=== PATIENT | female | born 1930 | race Caucasian/White ===

== ENCOUNTER → 2016-03-26 | Outpatient (CLI) | payer MEDICARE, OTHER ==
[2016-03-26 11:33] LABS: ALANINE AMINOTRANSFERASE 37 U/L (9-52); ALBUMIN 3.9 g/dL (3.5-5.0); ALKALINE PHOSPHATASE 94 U/L (38-126); ASPARTATE AMINO TRANSFERASE 30 U/L (14-36); BILIRUBIN,TOTAL 0.5 mg/dL (0.2-1.3); CHOLESTEROL 318.04 mg/dL (0-200); Direct HDL 43 mg/dL (>40); TOTAL PROTEIN 7.1 g/dL (6.3-8.2); TRIGLYCERIDES 399 mg/dL (<150)
[2016-03-26 11:44] LABS: DIRECT LDL 202 mg/dL (<100)
[2016-03-26 11:50] LABS: VLDL CHOLESTEROL 79.8 mg/dL (10-31)
== END ==
LOC: OD 10:15
PROVIDERS: ATTEND Specialist
DX: E11.9 Type 2 diabetes mellitus without complications (principal); E78.4 Other hyperlipidemia; E66.8 Other obesity; I10 Essential (primary) hypertension; I25.10 Atherosclerotic heart disease of native coronary artery without angina pectoris; I47.1 Supraventricular tachycardia; I66.9 Occlusion and stenosis of unspecified cerebral artery; R01.1 Cardiac murmur, unspecified; R09.89 Other specified symptoms and signs involving the circulatory and respiratory systems; F31.9 Bipolar disorder, unspecified; Z79.899 Other long term (current) drug therapy; Z98.61 Coronary angioplasty status
CPT/HCPCS: 36415; 80061; 80076; 83036

== ENCOUNTER → 2016-04-15 | Outpatient (CLI) | payer MEDICARE, OTHER ==
[2016-04-15 13:24] LABS: HEMOGLOBIN 12.3 g/dL (12.0-15.5); HGB HCT DIFFERENCE -0.1; MEAN CORPUSCULAR HEMOGLOBIN 30.8 pg (27.0-33.4); MEAN CORPUSCULAR HGB CONC 33.2 g/dL (32.0-36.0); MEAN CORPUSCULAR VOLUME 93 fl (80-97); RED BLOOD COUNT 3.99 10^6/uL (3.72-5.28); RED CELL DISTRIBUTION WIDTH 14.1 % (11.5-14.0); WHITE BLOOD COUNT 9.1 10^3/uL (4.0-10.5)
[2016-04-15 13:52] LABS: ANION GAP 14 (5-19); BLOOD UREA NITROGEN 38 mg/dL (7-20); CARBON DIOXIDE 25 mmol/L (22-30); CHLORIDE 101 mmol/L (98-107); CREATININE RESULT 1.72 mg/dL (0.52-1.25); GLUCOSE 305 mg/dL (75-110); POTASSIUM 5.5 mmol/L (3.6-5.0); SODIUM 139.5 mmol/L (137-145)
== END ==
LOC: OD 11:47
PROVIDERS: ATTEND Internal Medicine Nephrology
DX: I12.9 Hypertensive chronic kidney disease with stage 1 through stage 4 chronic kidney disease, or unspecified chronic kidney disease (principal); N18.4 Chronic kidney disease, stage 4 (severe); E11.9 Type 2 diabetes mellitus without complications
CPT/HCPCS: 36415; 80048; 85027

== ENCOUNTER → 2016-04-17 | Outpatient (CLI) | payer MEDICARE, OTHER | LOC: OD 15:43 | PROVIDERS: ATTEND Internal Medicine Nephrology | DX: E87.5 Hyperkalemia (principal) | CPT/HCPCS: 36415; 84132 ==

== ENCOUNTER → 2016-05-28 | Outpatient (CLI) | payer MEDICARE, OTHER | LOC: OD 10:02 | PROVIDERS: ATTEND Internal Medicine Nephrology | DX: E87.5 Hyperkalemia (principal) | CPT/HCPCS: 36415; 84132 ==

== ENCOUNTER 2016-07-21 11:45 | Emergency (ER) | payer MEDICARE, OTHER ==
[2016-07-21] MEDS ORDERED: LIDOCAINE 1% INJ-PF (10 MG/ML) 30 ML SDV INJ ONE (13:02)
--- NOTE | 2016-07-21 15:07 | ER Document Report ---
ED General - General Chief Complaint: Fall Stated Complaint: FALL/NECK PAIN Mode of Arrival: Ambulatory Information source: Patient Notes: 85-year-old female presents after mechanical fall striking head. Patient denies any loss of bowel or bladder function denies any fevers or chills nausea vomiting or diarrhea. Patient denies any loss consciousness TRAVEL OUTSIDE OF THE [place] IN LAST 30 DAYS: No - HPI Onset: Just prior to arrival Onset/Duration: Sudden Quality of pain: Achy Severity: Mild Pain Level: 1 Associated symptoms: Headache Exacerbated by: Denies Relieved by: Denies Similar symptoms previously: Yes Recently seen / treated by doctor: Yes - Related Data Allergies/Adverse Reactions: celecoxib [From Celebrex] Allergy (Intermediate, Verified 10/31/14 17:30) gabapentin [From Neurontin] Allergy (Intermediate, Verified 10/31/14 17:30) lamotrigine [From Lamictal] Allergy (Intermediate, Verified 10/31/14 17:30) meloxicam [From Mobic] Allergy (Intermediate, Verified 10/31/14 17:30) thiothixene [From Navane] Allergy (Intermediate, Verified 10/31/14 17:30) amoxicillin trihydrate [From Augmentin] Allergy (Unknown, Verified 10/31/14 17: 30) citalopram hydrobromide [From Celexa] Allergy (Unknown, Verified 10/31/14 17:30) codeine [Codeine] Allergy (Unknown, Verified 10/31/14 17:30) divalproex sodium [From Depakote] Allergy (Unknown, Verified 10/31/14 17:30) hydrocodone bitartrate [From Lorcet 10/650] Allergy (Unknown, Verified 10/31/14 17:30) methocarbamol [From Robaxin] Allergy (Unknown, Verified 10/31/14 17:30) nabumetone [From Relafen] Allergy (Unknown, Verified 10/31/14 17:30) oxycodone [Oxycodone] Allergy (Unknown, Verified 10/31/14 17:30) Sulfa (Sulfonamide Antibiotics) Allergy (Unknown, Verified 10/31/14 17:30) terazosin [Terazosin] Allergy (Unknown, Verified 10/31/14 17:30) tramadol HCl [From Ultram] Allergy (Unknown, Verified 10/31/14 17:30) Past Medical History - Social History Smoking Status: Never Smoker Cigarette use (# per day): No Chew tobacco use (# tins/day): No Smoking Education Provided: No Frequency of alcohol use: None Drug Abuse: None Family History: Reviewed & Not Pertinent - Past Medical History Cardiac Medical History: Reports: Hx Coronary Artery Disease, Hx Heart Attack, Hx Hypercholesterolemia, Hx Hypertension Denies: Hx Heart Murmur Pulmonary Medical History: Reports: Hx Pneumonia Denies: Hx Respiratory Failure, Hx Sleep Apnea, Hx Tuberculosis Neurological Medical History: Reports: Hx Cerebrovascular Accident - Residual symptoms include left sided arm and leg numbness and weakness, Hx Seizures - "long time ago" Endocrine Medical History: Reports: Hx Diabetes Mellitus Type 2 Renal/ Medical History: Malignancy Medical History: GI Medical History: Denies: Hx Hiatal Hernia, Hx Ulcer Musculoskeltal Medical History: 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 Denies recent illness. EENT: Denies eye, ear, throat, or mouth pain or symptoms. Denies nasal or sinus congestion or discharge. Denies throat, tongue, or mouth swelling or difficulty swallowing. CARDIOVASCULAR: Denies chest pain. Denies palpitations or racing or irregular heart beat. Denies ankle edema. RESPIRATORY: Denies cough, cold, or chest congestion. Denies shortness of breath, difficulty breathing, or wheezing. GASTROINTESTINAL: Denies abdominal pain or distention. Denies nausea, vomiting , or diarrhea. Denies blood in vomitus, stools, or per rectum. Denies black, tarry stools. Denies constipation. GENITOURINARY: Denies difficulty urinating, painful urination, burning, frequency, blood in urine, or discharge. FEMALE GENITOURINARY: Denies vaginal bleeding, heavy or abnormal periods, irregular periods. Denies vaginal discharge or odor. MUSCULOSKELETAL: Denies back or neck pain or stiffness. Denies joint pain or swelling. SKIN: 3.5 cm laceration HEMATOLOGIC : Denies easy bruising or bleeding. LYMPHATIC: Denies swollen, enlarged glands. NEUROLOGICAL: Denies confusion or altered mental status. Denies passing out or loss of consciousness. Denies dizziness or lightheadedness. Denies headache. Denies weakness or paralysis or loss of use of either side. Denies problems with gait or speech. Denies sensory loss, numbness, or tingling. Denies seizures. PSYCHIATRIC: Denies anxiety or stress. Denies depression, suicidal ideation, or homicidal ideation. ALL OTHER SYSTEMS REVIEWED AND NEGATIVE. Dictation was performed using [employer] voice recognition software PHYSICAL EXAMINATION: GENERAL: Well-appearing, well-nourished and in no acute distress. HEAD: Atraumatic, normocephalic. EYES: Pupils equal round and reactive to light, extraocular movements intact, conjunctiva are normal. ENT: Nares patent, oropharynx clear without exudates. Moist mucous membranes. NECK: Normal range of motion, supple without lymphadenopathy LUNGS: Breath sounds clear to auscultation bilaterally and equal. No wheezes rales or rhonchi. HEART: Regular rate and rhythm without murmurs ABDOMEN: Soft, nontender, nondistended abdomen. No guarding, no rebound. No masses appreciated. Female : deferred Musculoskeletal: Normal range of motion, no pitting or edema. No cyanosis. NEUROLOGICAL: Cranial nerves grossly intact. Normal speech, normal gait. Normal sensory, motor exams PSYCH: Normal mood, normal affect. SKIN: 3.5 cm laceration above the right orbit Physical Exam - Vital signs Vitals: Temp Pulse Resp BP Pulse Ox 98.5 F 64 18 132/67 H 96 07/21/16 12:01 07/21/16 12:01 07/21/16 12:01 07/21/16 12:01 07/21/16 12:01 Course - Re-evaluation Re-evalutation: 07/21/16 15:07 85-year-old female presents after head injury, area was anesthetized cleansed and repaired with no difficulty. Patient will be discharged back with close return precautions as well as wound care. Instructed to remove the sutures in 3 -5 days or sooner if there is any other concerns After performing a Medical Screening Examination, I estimate there is LOW risk for INTRACRANIAL HEMORRHAGE, UNSTABLE SPINE FRACTURE, CENTRAL CORD SYNDROME, CAUDA EQUINA, THORACIC AORTIC DISSECTION, PNEUMOTHORAX, PERFORATED BOWEL, RUPTURED ABDOMINAL AORTIC ANEURYSM, ACUTE TENDON RUPTURE, COMPARTMENT SYNDROME, or OPEN FRACTURE, thus I consider the discharge disposition reasonable. Also, there is no evidence or peritonitis, sepsis, or toxicity. I have reevaluated this patient multiple times and no significant life threatening changes are noted. The patient and I have discussed the diagnosis and risks, and we agree with discharging home to follow-up with their primary doctor with the understanding that symptoms and presentations can change. We also discussed returning to the Emergency Department immediately if new or worsening symptoms occur. We have discussed the symptoms which are most concerning (e.g., bloody stool, fever, changing or worsening pain, vomiting) that necessitate immediate return. - Vital Signs Vital signs: Temp Pulse Resp BP Pulse Ox 98.5 F 64 18 132/67 H 96 07/21/16 12:01 07/21/16 12:01 07/21/16 12:01 07/21/16 12:01 07/21/16 12:01 Procedures - Laceration/Wound Repair Right Upper Face Time completed: 15:00 Wound length (cm): 3.5 Wound's Depth, Shape: Superficial, Irregular, Flap Laceration pre-procedure: Sterile PPE donned, Sterile drapes applied, Shur- Clens applied Anesthetic type: 1% Lidocaine Volume Anesthetic (mLs): 10 Wound explored: Clean, No foreign body removed Irrigated w/ Saline (mLs): 500 Wound Debrided: Minimal Wound Repaired With: Sutures Suture Size/Type: 6:0 Number of Sutures: 3 Post-procedure wound care: Sterile dressing applied Post-procedure NV exam normal: Yes Complications: No Discharge - Discharge Clinical Impression: Fall Qualifiers: Encounter type: initial encounter Qualified Code(s): W19.XXXA - Unspecified fall, initial encounter Facial laceration Qualifiers: Encounter type: initial encounter Qualified Code(s): S01.81XA - Laceration without foreign body of other part of head, initial encounter Condition: Stable Disposition: HOME, SELF-CARE Instructions: Laceration Care ([facility]), Soap Cleansing ([facility]) Additional Instructions: Return immediately if there is any sign of infection or any other concerns Referrals: MAURICE SILVER MD [Primary Care Provider] - Follow up in 3-5 days
[2016-07-21 18:04] VITALS: BP 186/75
== END 2016-07-21 18:06 | disposition home or self-care (01) ==
LOC: ER 11:45
PROC: 0HQ1XZZ Repair Face Skin, External Approach (ICD-10-PCS; principal; 2016-07-21)
DX: S01.112A Laceration without foreign body of left eyelid and periocular area, initial encounter (principal); M54.2 Cervicalgia; R51 Headache; W19.XXXA Unspecified fall, initial encounter; I25.10 Atherosclerotic heart disease of native coronary artery without angina pectoris; I25.2 Old myocardial infarction; I10 Essential (primary) hypertension; E11.9 Type 2 diabetes mellitus without complications; Z88.6 Allergy status to analgesic agent; Z88.8 Allergy status to other drugs, medicaments and biological substances; Z88.0 Allergy status to penicillin; Z88.2 Allergy status to sulfonamides; Z88.5 Allergy status to narcotic agent; Z86.73 Personal history of transient ischemic attack (TIA), and cerebral infarction without residual deficits
CPT/HCPCS: 99284; 70450; 72125; 12013; J3490

== ENCOUNTER → 2016-10-03 | Outpatient (CLI) | payer MEDICARE, OTHER ==
[2016-10-03 11:27] LABS: ALANINE AMINOTRANSFERASE 28 U/L (9-52); ALBUMIN 4.5 g/dL (3.5-5.0); ALKALINE PHOSPHATASE 99 U/L (38-126); ASPARTATE AMINO TRANSFERASE 22 U/L (14-36); BILIRUBIN,DIRECT 0.4 mg/dL (0.0-0.4); BILIRUBIN,TOTAL 0.6 mg/dL (0.2-1.3); Direct HDL 42 mg/dL (>40); TOTAL PROTEIN 7.7 g/dL (6.3-8.2); TRIGLYCERIDES 380 mg/dL (<150)
[2016-10-03 11:39] LABS: DIRECT LDL 212 mg/dL (<100)
[2016-10-03 11:40] LABS: CHOLESTEROL 344.15 mg/dL (0-200)
== END ==
LOC: OD 09:36
PROVIDERS: ATTEND Specialist
DX: E11.9 Type 2 diabetes mellitus without complications (principal); E78.4 Other hyperlipidemia; E66.8 Other obesity; I10 Essential (primary) hypertension; I25.10 Atherosclerotic heart disease of native coronary artery without angina pectoris; I47.1 Supraventricular tachycardia; I66.9 Occlusion and stenosis of unspecified cerebral artery; R01.1 Cardiac murmur, unspecified; R09.89 Other specified symptoms and signs involving the circulatory and respiratory systems; Z96.81 Presence of artificial skin; F31.9 Bipolar disorder, unspecified; Z79.899 Other long term (current) drug therapy
CPT/HCPCS: 36415; 80061; 80076; 83036

== ENCOUNTER → 2017-01-02 | Outpatient (CLI) | payer MEDICARE, OTHER ==
[2017-01-02 11:57] LABS: ALANINE AMINOTRANSFERASE 30 U/L (9-52); ALBUMIN 4.6 g/dL (3.5-5.0); ALKALINE PHOSPHATASE 79 U/L (38-126); ASPARTATE AMINO TRANSFERASE 26 U/L (14-36); BILIRUBIN,DIRECT 0.5 mg/dL (0.0-0.4); BILIRUBIN,TOTAL 0.5 mg/dL (0.2-1.3); CHOLESTEROL 198.68 mg/dL (0-200); Direct HDL 45 mg/dL (>40); TOTAL PROTEIN 7.7 g/dL (6.3-8.2); TRIGLYCERIDES 249 mg/dL (<150)
[2017-01-02 12:13] LABS: DIRECT LDL 100 mg/dL (<100)
[2017-01-02 12:19] LABS: VLDL CHOLESTEROL 49.8 mg/dL (10-31)
== END ==
LOC: OD 10:01
PROVIDERS: ATTEND Specialist
DX: E11.9 Type 2 diabetes mellitus without complications (principal); E78.4 Other hyperlipidemia; E66.8 Other obesity; I10 Essential (primary) hypertension; I25.10 Atherosclerotic heart disease of native coronary artery without angina pectoris; I47.1 Supraventricular tachycardia; I66.9 Occlusion and stenosis of unspecified cerebral artery; R01.1 Cardiac murmur, unspecified; R09.89 Other specified symptoms and signs involving the circulatory and respiratory systems; Z98.61 Coronary angioplasty status; F31.9 Bipolar disorder, unspecified; Z79.899 Other long term (current) drug therapy
CPT/HCPCS: 36415; 80061; 80076; 83036

== ENCOUNTER 2017-05-07 01:55 | Emergency (ER) | payer MEDICARE, OTHER ==
[2017-05-07] MEDS ORDERED: ACETAMINOPHEN 325 MG TABLET PO ONE (02:05)
--- NOTE | 2017-05-07 02:07 | ER Document Report ---
ED General - General Stated Complaint: FALL/BODY PAIN Time Seen by Provider: 05/07/17 02:02 Mode of Arrival: Medic Information source: Patient Notes: 86-year-old female presents after mechanical fall landing on her left side. Patient admits to left hip pain. She denies left shoulder pain but states when EMS came to the told her that she had pain, when patient lifts up her arm she does admit that it hurts. Patient denies any other complaints denies any fevers chills nausea vomiting or diarrhea patient denies any syncope states is a mechanical fall TRAVEL OUTSIDE OF THE [place] IN LAST 30 DAYS: No - HPI Onset: Just prior to arrival Onset/Duration: Sudden Quality of pain: Achy Severity: Mild Pain Level: 1 Associated symptoms: Body/muscle aches Exacerbated by: Movement, Walking Relieved by: Denies Similar symptoms previously: No Recently seen / treated by doctor: No - Related Data Allergies/Adverse Reactions: celecoxib [From Celebrex] Allergy (Intermediate, Verified 05/07/17 02:54) gabapentin [From Neurontin] Allergy (Intermediate, Verified 05/07/17 02:54) lamotrigine [From Lamictal] Allergy (Intermediate, Verified 05/07/17 02:54) meloxicam [From Mobic] Allergy (Intermediate, Verified 05/07/17 02:54) thiothixene [From Navane] Allergy (Intermediate, Verified 05/07/17 02:54) amoxicillin trihydrate [From Augmentin] Allergy (Unknown, Verified 05/07/17 02: 54) citalopram hydrobromide [From Celexa] Allergy (Unknown, Verified 05/07/17 02:54) codeine [Codeine] Allergy (Unknown, Verified 05/07/17 02:54) divalproex sodium [From Depakote] Allergy (Unknown, Verified 05/07/17 02:54) hydrocodone bitartrate [From Lorcet 10/650] Allergy (Unknown, Verified 05/07/17 02:54) methocarbamol [From Robaxin] Allergy (Unknown, Verified 05/07/17 02:54) nabumetone [From Relafen] Allergy (Unknown, Verified 05/07/17 02:54) oxycodone [Oxycodone] Allergy (Unknown, Verified 05/07/17 02:54) Sulfa (Sulfonamide Antibiotics) Allergy (Unknown, Verified 05/07/17 02:54) terazosin [Terazosin] Allergy (Unknown, Verified 05/07/17 02:54) tramadol HCl [From Ultram] Allergy (Unknown, Verified 05/07/17 02:54) Past Medical History - Social History Smoking Status: Never Smoker Cigarette use (# per day): No Chew tobacco use (# tins/day): No Smoking Education Provided: No Family History: Reviewed & Not Pertinent - Past Medical History Cardiac Medical History: Reports: Hx Coronary Artery Disease, Hx Heart Attack, Hx Hypercholesterolemia, Hx Hypertension Denies: Hx Heart Murmur Pulmonary Medical History: Reports: Hx Pneumonia Denies: Hx Respiratory Failure, Hx Sleep Apnea, Hx Tuberculosis Neurological Medical History: Reports: Hx Cerebrovascular Accident - Residual symptoms include left sided arm and leg numbness and weakness, Hx Seizures - "long time ago" Endocrine Medical History: Reports: Hx Diabetes Mellitus Type 2 Renal/ Medical History: Malignancy Medical History: GI Medical History: Denies: Hx Hiatal Hernia, Hx Pancreatitis, Hx Ulcer Musculoskeltal Medical History: 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 Denies recent illness. EENT: Denies eye, ear, throat, or mouth pain or symptoms. Denies nasal or sinus congestion or discharge. Denies throat, tongue, or mouth swelling or difficulty swallowing. CARDIOVASCULAR: Denies chest pain. Denies palpitations or racing or irregular heart beat. Denies ankle edema. RESPIRATORY: Denies cough, cold, or chest congestion. Denies shortness of breath, difficulty breathing, or wheezing. GASTROINTESTINAL: Denies abdominal pain or distention. Denies nausea, vomiting , or diarrhea. Denies blood in vomitus, stools, or per rectum. Denies black, tarry stools. Denies constipation. GENITOURINARY: Denies difficulty urinating, painful urination, burning, frequency, blood in urine, or discharge. FEMALE GENITOURINARY: Denies vaginal bleeding, heavy or abnormal periods, irregular periods. Denies vaginal discharge or odor. MUSCULOSKELETAL: Admits to left shoulder pain left hip pain SKIN: Denies rash, lesions or sores. HEMATOLOGIC : Denies easy bruising or bleeding. LYMPHATIC: Denies swollen, enlarged glands. NEUROLOGICAL: Denies confusion or altered mental status. Denies passing out or loss of consciousness. Denies dizziness or lightheadedness. Denies headache. Denies weakness or paralysis or loss of use of either side. Denies problems with gait or speech. Denies sensory loss, numbness, or tingling. Denies seizures. PSYCHIATRIC: Denies anxiety or stress. Denies depression, suicidal ideation, or homicidal ideation. ALL OTHER SYSTEMS REVIEWED AND NEGATIVE. PHYSICAL EXAMINATION: GENERAL: Well-appearing, well-nourished and in no acute distress. HEAD: Atraumatic, normocephalic. EYES: Pupils equal round and reactive to light, extraocular movements intact, conjunctiva are normal. ENT: Nares patent, oropharynx clear without exudates. Moist mucous membranes. NECK: Normal range of motion, supple without lymphadenopathy LUNGS: Breath sounds clear to auscultation bilaterally and equal. No wheezes rales or rhonchi. HEART: Regular rate and rhythm without murmurs ABDOMEN: Soft, nontender, nondistended abdomen. No guarding, no rebound. No masses appreciated. Female : deferred Musculoskeletal: Patient has tenderness with range of motion of the left hip and left shoulder, and lifting the left leg patient notes pain but is able to move her lower extremity NEUROLOGICAL: Cranial nerves grossly intact. Normal speech, Normal sensory, motor exams PSYCH: Normal mood, normal affect. SKIN: Warm, Dry, normal turgor, no rashes or lesions noted. Dictation was performed using [employer] voice recognition software Physical Exam - Vital signs Vitals: Temp Pulse Resp BP Pulse Ox 98.4 F 66 20 148/71 H 98 05/07/17 01:58 05/07/17 01:58 05/07/17 01:58 05/07/17 01:58 05/07/17 01:58 Course - Re-evaluation Re-evalutation: 05/07/17 02:07 Tylenol ordered, x-rays pending 05/08/17 13:05 X-rays noted no acute abnormality, patient was able to stand with no difficulty , she has no shortening of the leg, she has full range of motion of her left shoulder, I will therefore discharge her home. I am unable to treat her pain otherwise as she appears to have severe allergic reactions to quite a few other pain medications After performing a Medical Screening Examination, I estimate there is LOW risk for INTRACRANIAL HEMORRHAGE, UNSTABLE SPINE FRACTURE, CENTRAL CORD SYNDROME, CAUDA EQUINA, THORACIC AORTIC DISSECTION, PNEUMOTHORAX, PERFORATED BOWEL, RUPTURED ABDOMINAL AORTIC ANEURYSM, ACUTE TENDON RUPTURE, COMPARTMENT SYNDROME, or OPEN FRACTURE, thus I consider the discharge disposition reasonable. Also, there is no evidence or peritonitis, sepsis, or toxicity. I have reevaluated this patient multiple times and no significant life threatening changes are noted. The patient and I have discussed the diagnosis and risks, and we agree with discharging home to follow-up with their primary doctor with the understanding that symptoms and presentations can change. We also discussed returning to the Emergency Department immediately if new or worsening symptoms occur. We have discussed the symptoms which are most concerning (e.g., bloody stool, fever, changing or worsening pain, vomiting) that necessitate immediate return. - Vital Signs Vital signs: Temp Pulse Resp BP Pulse Ox 98.4 F 68 18 138/56 H 100 05/07/17 03:25 05/07/17 03:25 05/07/17 03:25 05/07/17 03:25 05/07/17 03:25 - Diagnostic Test Radiology reviewed: Image reviewed, Reports reviewed Discharge - Discharge Clinical Impression: Hip pain, left Fall Qualifiers: Encounter type: initial encounter Qualified Code(s): W19.XXXA - Unspecified fall, initial encounter Shoulder pain Qualifiers: Chronicity: acute Laterality: left Qualified Code(s): M25.512 - Pain in left shoulder Condition: Stable Disposition: HOME, SELF-CARE Instructions: Contusion ([facility]) Additional Instructions: Follow up with your physician tomorrow for further care or return to the ED IMMEDIATELY if symptoms worsen or new concerns occur. If you cannot afford to follow up with your primary care physician a list of low cost clinics have been provided at the end of your discharge papers as well. Referrals: JENNIFER LITTLEJOHN MD [ACTIVE STAFF] - Follow up tomorrow
--- NOTE | 2017-05-07 03:06 | RADIOLOGY REPORT (SQ) ---
EXAM DESCRIPTION: HIP LEFT AP/LATERAL CLINICAL HISTORY: fall COMPARISON: 02/13/2014 FINDINGS: Single view of the pelvis and lateral view of the left hip. No acute fracture. Osteopenia. Mild bilateral joint space narrowing. Mild degenerative change of the lumbar spine. Postoperative change in the visualized portions of the abdomen. Atherosclerotic vascular calcification. IMPRESSION: 1. No acute fracture or dislocation by plain film criteria.
--- NOTE | 2017-05-07 03:07 | RADIOLOGY REPORT (SQ) ---
EXAM DESCRIPTION: SHOULDER LEFT 2 OR MORE VIEWS CLINICAL HISTORY: fall COMPARISON: 06/10/2014 FINDINGS: 3 views of the shoulder. No acute fracture or dislocation. Osteopenia. 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 Degenerative change of the acromioclavicular joint. No left-sided pneumothorax identified. IMPRESSION: No acute fracture or dislocation. 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
[2017-05-07 03:30] VITALS: BP 138/56
== END 2017-05-07 03:30 | disposition home or self-care (01) ==
LOC: ER 01:55
DX: M25.512 Pain in left shoulder (principal); M25.552 Pain in left hip; W19.XXXA Unspecified fall, initial encounter; Y92.199 Unspecified place in other specified residential institution as the place of occurrence of the external cause; I25.10 Atherosclerotic heart disease of native coronary artery without angina pectoris; I10 Essential (primary) hypertension; I25.2 Old myocardial infarction; E11.9 Type 2 diabetes mellitus without complications; Z88.8 Allergy status to other drugs, medicaments and biological substances; Z88.6 Allergy status to analgesic agent; Z88.0 Allergy status to penicillin; Z88.5 Allergy status to narcotic agent; Z88.2 Allergy status to sulfonamides
CPT/HCPCS: 99284; 73502; 73030; A9270

== ENCOUNTER 2017-06-20 15:41 | Observation (INO) | payer MEDICARE, OTHER ==
--- NOTE | 2017-06-20 15:49 | ER Document Report ---
ED General - General Stated Complaint: WEAKNESS Time Seen by Provider: 06/20/17 15:49 Notes: 86-year-old female from nursing facility for evaluation of hypoglycemia. Patient with Alzheimer's dementia, schizophrenia, hypertension, diabetes. Blood sugar was read as over 500. EMS arrived. 1 L fluid was given. Blood sugar now in the 300s. Patient complaining of pain in her hip and pain in her right lower extremity and calf. Questionable fever. Denies any chest pain, abdominal pain or shortness of breath at this time. TRAVEL OUTSIDE OF THE [place] IN LAST 30 DAYS: No - HPI Onset: Just prior to arrival - Related Data Allergies/Adverse Reactions: celecoxib [From Celebrex] Allergy (Intermediate, Verified 05/07/17 02:54) gabapentin [From Neurontin] Allergy (Intermediate, Verified 05/07/17 02:54) lamotrigine [From Lamictal] Allergy (Intermediate, Verified 05/07/17 02:54) meloxicam [From Mobic] Allergy (Intermediate, Verified 05/07/17 02:54) thiothixene [From Navane] Allergy (Intermediate, Verified 05/07/17 02:54) amoxicillin trihydrate [From Augmentin] Allergy (Unknown, Verified 05/07/17 02: 54) citalopram hydrobromide [From Celexa] Allergy (Unknown, Verified 05/07/17 02:54) codeine [Codeine] Allergy (Unknown, Verified 05/07/17 02:54) divalproex sodium [From Depakote] Allergy (Unknown, Verified 05/07/17 02:54) hydrocodone bitartrate [From Lorcet 10/650] Allergy (Unknown, Verified 05/07/17 02:54) methocarbamol [From Robaxin] Allergy (Unknown, Verified 05/07/17 02:54) nabumetone [From Relafen] Allergy (Unknown, Verified 05/07/17 02:54) oxycodone [Oxycodone] Allergy (Unknown, Verified 05/07/17 02:54) Sulfa (Sulfonamide Antibiotics) Allergy (Unknown, Verified 05/07/17 02:54) terazosin [Terazosin] Allergy (Unknown, Verified 05/07/17 02:54) tramadol HCl [From Ultram] Allergy (Unknown, Verified 05/07/17 02:54) Past Medical History - General Information source: Patient, [facility] Records, Outside Facility Records - Social History Smoking Status: Never Smoker Frequency of alcohol use: None Drug Abuse: None Lives with: [facility] Family History: Reviewed & Not Pertinent - Past Medical History Cardiac Medical History: Reports: Hx Coronary Artery Disease, Hx Heart Attack, Hx Hypercholesterolemia, Hx Hypertension Denies: Hx Heart Murmur Pulmonary Medical History: Reports: Hx Pneumonia Denies: Hx Respiratory Failure, Hx Sleep Apnea, Hx Tuberculosis Neurological Medical History: Reports: Hx Cerebrovascular Accident - Residual symptoms include left sided arm and leg numbness and weakness, Hx Seizures - "long time ago" Endocrine Medical History: Reports: Hx Diabetes Mellitus Type 2 Renal/ Medical History: Malignancy Medical History: GI Medical History: Denies: Hx Hiatal Hernia, Hx Pancreatitis, Hx Ulcer Musculoskeltal Medical History: Reports Hx Arthritis - osteo Psychiatric Medical History: Reports: Hx Anxiety, Hx Bipolar Disorder, Hx Dementia, Hx Depression, Hx Schizophrenia Traumatic Medical History: Infectious Medical History: Past Surgical History: Reports: Hx Appendectomy, Hx Cardiac Catheterization, Hx Cholecystectomy, Hx Hysterectomy, Hx Orthopedic Surgery - back surgery x 7, Hx Tonsillectomy - Immunizations Hx Diphtheria, Pertussis, Tetanus Vaccination: Yes Hx Pneumococcal Vaccination: 03/17/09 Review of Systems - Review of Systems Constitutional: Fever. denies: Malaise, Weakness EENT: No symptoms reported Cardiovascular: No symptoms reported Respiratory: No symptoms reported Gastrointestinal: No symptoms reported Genitourinary: No symptoms reported Female Genitourinary: No symptoms reported Musculoskeletal: See HPI, Muscle pain, Muscle stiffness, Other - hip pain. denies: Joint swelling Skin: No symptoms reported Hematologic/Lymphatic: No symptoms reported Neurological/Psychological: No symptoms reported, Other - Dementia Physical Exam - Vital signs Vitals: Temp Resp BP Pulse Ox 100.2 F 23 H 171/86 H 99 06/20/17 16:12 06/20/17 16:12 06/20/17 16:12 06/20/17 16:12 Interpretation: Normal - General General appearance: Appears well, Alert - HEENT Head: Normocephalic, Atraumatic Eyes: Normal Pupils: PERRL - Respiratory Respiratory status: No respiratory distress Chest status: Nontender Breath sounds: Normal Chest palpation: Normal - Cardiovascular Rhythm: Regular Heart sounds: Normal auscultation Murmur: No - Abdominal Inspection: Normal Distension: No distension Bowel sounds: Normal Tenderness: Nontender Organomegaly: No organomegaly - Back Back: Normal, Nontender - Extremities General upper extremity: Normal inspection, Nontender, Normal color, Normal ROM , Normal temperature General lower extremity: Normal inspection, Nontender, Normal color, Normal ROM , Normal temperature, Other - Mild tenderness to palpation in the right calf. No significant edema.. No: Magy's sign - Neurological Neuro grossly intact: Yes Cognition: Short term memory loss Orientation: Disoriented to place, Disoriented to time, Disoriented to events Jamil Coma Scale Eye Opening: Spontaneous Jamil Coma Scale Verbal: Confused Jamil Coma Scale Motor: Obeys Commands Terril Coma Scale Total: 14 Speech: Normal Motor strength normal: LUE, RUE, LLE, RLE Sensory: Normal - Psychological Associated symptoms: Normal affect, Normal mood - Skin Skin Temperature: Warm Skin Moisture: Dry Skin Color: Normal Course - Re-evaluation Re-evalutation: 06/20/17 16:03 This is a 86-year-old female with dementia, schizophrenia, hypertension, diabetes presents emergency department with low-grade fever and hyperglycemia. Complaining of pain in the pelvis/hip on the right as well as some pain in the right lower extremity. Physical exam is fairly unremarkable. Will order pelvic x-ray, ultrasound right lower extremity, basic labs, blood cultures and lactic acid reassess. 06/20/17 16:59 Ultrasound negative for DVT. 06/20/17 17:06 Patient with slightly elevated troponin at 0.050. Aspirin given. EKG reviewed and does not show any signs of ST segment elevation or depression. Old inferior infarct. LVH. 06/20/17 17:31 With slightly elevated temperature. Repeat abdominal exam reveals some tenderness in both the right and left lower quadrants. Ordering a CT scan without oral IV contrast due to the fact that her creatinine is elevated. Fluids ordered. Insulin given. Uncertain etiology of patient's presentation at this time. 06/20/17 19:01 Laboratory 06/20/17 06/20/17 06/20/17 15:08 15:08 15:08 WBC 12.4 H RBC 3.65 L Hgb 10.5 L Hct 32.1 L MCV 88 MCH 28.6 MCHC 32.6 RDW 13.3 Plt Count 458 H Seg Neutrophils % 83.7 H Lymphocytes % 8.1 L Monocytes % 7.8 Eosinophils % 0.1 Basophils % 0.3 Absolute Neutrophils 10.4 H Absolute Lymphocytes 1.0 Absolute Monocytes 1.0 Absolute Eosinophils 0.0 Absolute Basophils 0.0 Sodium 131.7 L Potassium 4.9 Chloride 93 L Carbon Dioxide 22 Anion Gap 17 BUN 25 H Creatinine 1.36 H Est GFR ( Amer) 45 L Est GFR (Non-Af Amer) 37 L Glucose 514 H* POC Glucose Lactic Acid Calcium 9.3 Total Bilirubin 0.3 Direct Bilirubin 0.3 Neonat Total Bilirubin Not Reportable Neonat Direct Bilirubin Not Reportable Neonat Indirect Bili Not Reportable AST 36 ALT 37 Alkaline Phosphatase 163 H Troponin I 0.051 Total Protein 7.3 Albumin 4.1 Urine Color Urine Appearance Urine pH Ur Specific Avant Urine Protein Urine Glucose (UA) Urine Ketones Urine Blood Urine Nitrite Urine Bilirubin Urine Urobilinogen Ur Leukocyte Esterase Urine WBC (Auto) Urine RBC (Auto) Urine Ascorbic Acid 06/20/17 06/20/17 06/20/17 15:50 16:17 16:26 WBC RBC Hgb Hct MCV MCH MCHC RDW Plt Count Seg Neutrophils % Lymphocytes % Monocytes % Eosinophils % Basophils % Absolute Neutrophils Absolute Lymphocytes Absolute Monocytes Absolute Eosinophils Absolute Basophils Sodium Potassium Chloride Carbon Dioxide Anion Gap BUN Creatinine Est GFR ( Amer) Est GFR (Non-Af Amer) Glucose POC Glucose 460 H* Lactic Acid 3.3 H Calcium Total Bilirubin Direct Bilirubin Neonat Total Bilirubin Neonat Direct Bilirubin Neonat Indirect Bili AST ALT Alkaline Phosphatase Troponin I Total Protein Albumin Urine Color YELLOW Urine Appearance CLEAR Urine pH 5.0 Ur Specific Avant 1.017 Urine Protein NEGATIVE Urine Glucose (UA) >=500 H Urine Ketones NEGATIVE Urine Blood SMALL H Urine Nitrite NEGATIVE Urine Bilirubin NEGATIVE Urine Urobilinogen NEGATIVE Ur Leukocyte Esterase NEGATIVE Urine WBC (Auto) 0 Urine RBC (Auto) 0 Urine Ascorbic Acid NEGATIVE Hip/Pelvis X-Ray 06/20/17 16:00 IMPRESSION: NEGATIVE STUDY OF THE RIGHT HIP. NO RADIOGRAPHIC EVIDENCE OF ACUTE INJURY. Venous Doppler Study 06/20/17 16:00 IMPRESSION: NO EVIDENCE DVT OR SVT IN THE RIGHT LEG. Chest X-Ray 06/20/17 16:34 IMPRESSION: Mild chronic lung changes with no acute cardiopulmonary disease. Abdomen/Pelvis CT 06/20/17 17:30 IMPRESSION: 1. There is no acute abnormality in the abdomen or pelvis. 2. There are surgical changes in the lumbar spine. Patient with hyperglycemia and a low-grade fever with mild leukocytosis. He T scan of the abdomen and pelvis is unremarkable, chest x-ray unremarkable, venous lower extremity ultrasound unremarkable, hip x-ray unremarkable. I have given some IV fluids, Tylenol and insulin. At this time feel uncomfortable discharging. Will consult with hospitalist for admission at this time. Attempted to call hospitalist at [phone] and no answer. - Vital Signs Vital signs: Temp Pulse Resp BP Pulse Ox 99.3 F 15 165/85 H 99 06/20/17 19:03 06/20/17 19:03 06/20/17 17:30 06/20/17 19:03 - Laboratory Result Diagrams: 06/20/17 15:08 06/20/17 15:08 Laboratory results interpreted by me: 06/20/17 06/20/17 06/20/17 15:08 15:08 15:50 WBC 12.4 H RBC 3.65 L Hgb 10.5 L Hct 32.1 L Plt Count 458 H Seg Neutrophils % 83.7 H Lymphocytes % 8.1 L Absolute Neutrophils 10.4 H Sodium 131.7 L Chloride 93 L BUN 25 H Creatinine 1.36 H Est GFR ( Amer) 45 L Est GFR (Non-Af Amer) 37 L Glucose 514 H* POC Glucose 460 H* Lactic Acid Alkaline Phosphatase 163 H Urine Glucose (UA) Urine Blood 06/20/17 06/20/17 06/20/17 16:17 16:26 19:19 WBC RBC Hgb Hct Plt Count Seg Neutrophils % Lymphocytes % Absolute Neutrophils Sodium Chloride BUN Creatinine Est GFR ( Amer) Est GFR (Non-Af Amer) Glucose POC Glucose 220 H Lactic Acid 3.3 H Alkaline Phosphatase Urine Glucose (UA) >=500 H Urine Blood SMALL H 06/20/17 20:26 WBC RBC Hgb Hct Plt Count Seg Neutrophils % Lymphocytes % Absolute Neutrophils Sodium Chloride BUN Creatinine Est GFR ( Amer) Est GFR (Non-Af Amer) Glucose POC Glucose 183 H Lactic Acid Alkaline Phosphatase Urine Glucose (UA) Urine Blood - EKG Interpretation by Me EKG shows normal: Sinus rhythm, Intervals, QRS Complexes, ST-T Waves Voltage: Consistant with LVH Discharge - Discharge Clinical Impression: Fever, unknown origin Hyperglycemia due to type 2 diabetes mellitus Qualifiers: Diabetes mellitus retirement insulin use: with retirement use Qualified Code(s): E11.65 - Type 2 diabetes mellitus with hyperglycemia Condition: Good Disposition: ADMITTED INPATIENT Admitting Provider: Axel Manuel
[2017-06-20 16:01] LABS: ABSOLUTE NEUT (AUTO) 10.4 10^3/uL (1.7-8.2); BASOPHILS % (AUTO) 0.3 % (0-2); EOSINOPHILS % (AUTO) 0.1 % (0-6); HEMATOCRIT 32.1 % (36.0-47.0); HEMOGLOBIN 10.5 g/dL (12.0-15.5); LYMPHOCYTES % (AUTO) 8.1 % (13-45); MEAN CORPUSCULAR HEMOGLOBIN 28.6 pg (27.0-33.4); MEAN CORPUSCULAR HGB CONC 32.6 g/dL (32.0-36.0); MEAN CORPUSCULAR VOLUME 88 fl (80-97); MONOCYTES % (AUTO) 7.8 % (3-13); PLATELET COUNT 458 10^3/uL (150-450); RED BLOOD COUNT 3.65 10^6/uL (3.72-5.28); RED CELL DISTRIBUTION WIDTH 13.3 % (11.5-14.0); SEGMENTED NEUTROPHILS % (AUTO) 83.7 % (42-78); TOTAL CELLS COUNTED % (AUTO) 100 %; WHITE BLOOD COUNT 12.4 10^3/uL (4.0-10.5)
[2017-06-20 16:20] LABS: ALANINE AMINOTRANSFERASE 37 U/L (9-52); ALBUMIN 4.1 g/dL (3.5-5.0); ALKALINE PHOSPHATASE 163 U/L (38-126); ANION GAP 17 (5-19); ASPARTATE AMINO TRANSFERASE 36 U/L (14-36); BILIRUBIN,DIRECT 0.3 mg/dL (0.0-0.4); BILIRUBIN,TOTAL 0.3 mg/dL (0.2-1.3); BLOOD UREA NITROGEN 25 mg/dL (7-20); CALCIUM 9.3 mg/dL (8.4-10.2); CARBON DIOXIDE 22 mmol/L (22-30); CHLORIDE 93 mmol/L (98-107); POTASSIUM 4.9 mmol/L (3.6-5.0); SODIUM 131.7 mmol/L (137-145); TOTAL PROTEIN 7.3 g/dL (6.3-8.2)
[2017-06-20 16:28] LABS: GLUCOSE 514 mg/dL (75-110)
[2017-06-20] MEDS ORDERED: NORMAL SALINE 1000 ML 1,000 ML IV ONE (16:32)
[2017-06-20] MEDS ORDERED: INSULIN REG, HUMAN 100 UNIT/ML 3 ML VIAL (PYX) SUBCUT ONE (16:33)
[2017-06-20] MEDS ORDERED: INSULIN REG, HUMAN 100 UNIT/ML 3 ML VIAL (PYX) IV ONE (16:36)
[2017-06-20 16:47] LABS: APPEARANCE,URINE CLEAR; BILIRUBIN,URINE NEGATIVE (NEGATIVE); COLOR,URINE YELLOW; GLUCOSE, URINE >=500 mg/dL (NEGATIVE); KETONES,URINE NEGATIVE (NEGATIVE); LEUKOCYTE ESTERASE,URINE NEGATIVE (NEGATIVE); NITRITE,URINE NEGATIVE (NEGATIVE); PROTEIN,URINE NEGATIVE (NEGATIVE); URINE SPECIFIC GRAVITY 1.017; UROBILINOGEN,URINE NEGATIVE mg/dL (<2.0)
[2017-06-20] MEDS ORDERED: ASPIRIN 81 MG TABLET, CHEWABLE PO ONE (17:06)
--- NOTE | 2017-06-20 17:28 | RADIOLOGY REPORT (SQ) ---
EXAM DESCRIPTION: VENOUS UNILATERAL LOWER COMPLETED DATE/TIME: 06/20/2017 5:15 pm REASON FOR STUDY: rlq pain COMPARISON: None. TECHNIQUE: Dynamic and static clark scale and color images acquired of the right leg venous system. S elected spectral images acquired with additional compression and augmentation maneuvers. The contrala teral common femoral vein and saphenofemoral junction were also imaged. Images stored on PACS. LIMITATIONS: None. FINDINGS: COMMON FEMORAL: Normal phasicity, compression and augmentation. No visualized echogenic ma terial on clark scale. No defects on color images. FEMORAL: Normal compression and augmentation. No visualized echogenic material on clark scale. No defe cts on color images. POPLITEAL: Normal compression, augmentation. No visualized echogenic material on clark scale. No defec ts on color images. CALF VESSELS: Normal compression, augmentation. No visualized echogenic material on clark scale. No de fects on color images. GSV and SSV: Normal compression, augmentation. No visualized echogenic material on clark scale. No def ects on color images. ANY DEEP VENOUS INSUFFICIENCY: Not evaluated. ANY EVIDENCE OF POPLITEAL CYST: No. OTHER: No other significant finding. CONTRALATERAL COMMON FEMORAL VEIN AND SAPHENOFEMORAL JUNCTION: Normal phasicity, compression and augmentation. No visualized echogenic material on clark scale. No de fects on color images. IMPRESSION: NO EVIDENCE DVT OR SVT IN THE RIGHT LEG. TECHNICAL DOCUMENTATION: JOB ID: [id number] [employer]- All Rights Reserved Reading location - IP/workstation name: [email or web address]
[2017-06-20] MEDS ORDERED: ACETAMINOPHEN 325 MG TABLET PO ONE (17:30)
--- NOTE | 2017-06-20 17:36 | RADIOLOGY REPORT (SQ) ---
EXAM DESCRIPTION: HIP RIGHT AP/LATERAL COMPLETED DATE/TIME: 06/20/2017 5:25 pm REASON FOR STUDY: pain COMPARISON: None. NUMBER OF VIEWS: Two views. TECHNIQUE: AP pelvis and additional frog-leg view of the right hip. LIMITATIONS: None. FINDINGS: MINERALIZATION: Normal. RIGHT HIP: No fracture or dislocation. No worrisome bone lesions. LEFT HIP: No fracture or dislocation. No worrisome bone lesions. PUBIS AND ISCHIUM: No fracture. PELVIS: No fracture. SACRUM: No fracture or dislocation. No worrisome bone lesions. LOWER LUMBAR SPINE: No fracture or dislocation. No worrisome bone lesions. No significant disc disea se. SOFT TISSUES: No findings. OTHER: No other significant finding. IMPRESSION: NEGATIVE STUDY OF THE RIGHT HIP. NO RADIOGRAPHIC EVIDENCE OF ACUTE INJURY. TECHNICAL DOCUMENTATION: JOB ID: [id number] [employer]- All Rights Reserved Reading location - IP/workstation name: [email or web address]
--- NOTE | 2017-06-20 17:37 | RADIOLOGY REPORT (SQ) ---
EXAM DESCRIPTION: CHEST SINGLE VIEW COMPLETED DATE/TIME: 06/20/2017 5:25 pm REASON FOR STUDY: fever, altered COMPARISON: 03/06/2016 EXAM PARAMETERS: NUMBER OF VIEWS: One view. TECHNIQUE: Single frontal radiographic view of the chest acquired. RADIATION DOSE: NA LIMITATIONS: None. FINDINGS: LUNGS AND PLEURA: Mild chronic interstitial changes. No infiltrate or effusion. No mass. MEDIASTINUM AND HILAR STRUCTURES: No masses. Contour normal. HEART AND VASCULAR STRUCTURES: Heart normal in size. Normal vasculature. BONES: No acute findings. HARDWARE: None in the chest. OTHER: No other significant finding. IMPRESSION: Mild chronic lung changes with no acute cardiopulmonary disease. TECHNICAL DOCUMENTATION: JOB ID: [id number] [employer]- All Rights Reserved Reading location - IP/workstation name: [email or web address]
--- NOTE | 2017-06-20 18:23 | RADIOLOGY REPORT (SQ) ---
EXAM DESCRIPTION: CT ABD/PELVIS NO ORAL OR IV COMPLETED DATE/TIME: 06/20/2017 6:07 pm REASON FOR STUDY: abd pain, fever COMPARISON: 04/11/2011 TECHNIQUE: CT scan of the abdomen and pelvis performed without intravenous or oral contrast. Images reviewed with lung, soft tissue, and bone windows. Reconstructed coronal and sagittal MPR images revi ewed. All images stored on PACS. All CT scanners at this facility use dose modulation, iterative reconstruction, and/or weight based d osing when appropriate to reduce radiation dose to as low as reasonably achievable (ALARA). [facility]: Dose Right [facility]: CareDose [facility]: Dose Right [facility]: Teradose 4D [facility]: Smart [employer]Tree RADIATION DOSE: CT Rad equipment meets quality standard of care and radiation dose reduction techniq ues were employed. CTDIvol: 12.7 mGy. DLP: 656 mGy-cm.mGy. LIMITATIONS: None. FINDINGS: LOWER CHEST: No significant findings. No nodules or infiltrates. NON-CONTRASTED LIVER, SPLEEN, ADRENALS: Evaluation limited by lack of IV contrast. No identified sign ificant masses. PANCREAS: No masses. No peripancreatic inflammatory changes. GALLBLADDER: Surgically absent. RIGHT KIDNEY AND URETER: No suspicious masses. Assessment limited by lack of IV contrast. No signif icant calcifications. No hydronephrosis or hydroureter. LEFT KIDNEY AND URETER: No suspicious masses. Assessment limited by lack of IV contrast. No signifi cant calcifications. No hydronephrosis or hydroureter. AORTA AND RETROPERITONEUM: No aneurysm. There is moderate atherosclerosis including atherosclerosis at the origin of SMA and renal arteries. BOWEL AND PERITONEAL CAVITY: No obvious masses or inflammatory changes. No free fluid. APPENDIX: Surgically absent. PELVIS, BLADDER, AND ABDOMINAL WALL:The urinary bladder is normal. The uterus is absent. BONES: Surgical changes in the lumbar spine with lateral fusions. No acute abnormality. OTHER: No other significant finding. IMPRESSION: 1. There is no acute abnormality in the abdomen or pelvis. 2. There are surgical changes in the lumbar spine. COMMENT: Quality ID # [id number]: Final reports with documentation of one or more dose reduction techniques (e.g., Automated exposure control, adjustment of the mA and/or kV according to patient size, use of iterative reconstruction technique) TECHNICAL DOCUMENTATION: JOB ID: [id number]- All Rights Reserved Reading location - IP/workstation name: [email or web address]
[2017-06-20] MEDS ORDERED: ONDANSETRON HCL INJ/PF 4 MG/2 ML SDV IV PRN (20:39)
[2017-06-20] MEDS ORDERED: GLUCAGON,HUMAN RECOMB 1 MG INJ IM PRN (20:49)
[2017-06-20] MEDS ORDERED: INSULIN REG, HUMAN 100 UNIT/ML 3 ML VIAL (PYX) SUBCUT PRN (20:49)
[2017-06-20] MEDS ORDERED: DEXTROSE 40% GEL 15 GM TUBE PO PRN ×2 (20:49)
[2017-06-20] MEDS ORDERED: DEXTROSE 50%-WATER 25 GM/50 ML DISP.SYRIN IV PRN ×2 (20:49)
[2017-06-20] MEDS ORDERED: NORMAL SALINE 1000 ML 1,000 ML IV PRN (20:54)
--- NOTE | 2017-06-20 21:03 | EKG REPORT ---
SEVERITY:- ABNORMAL ECG - SINUS RHYTHM CONSIDER LEFT VENTRICULAR HYPERTROPHY PROBABLE INFERIOR INFARCT, OLD BORDERLINE PROLONGED QT INTERVAL : Confirmed by: Elliott Kelley 20-Jun-2017 21:02:39
--- NOTE | 2017-06-20 21:11 | PDOC H&P ---
History of Present Illness Admission Date/PCP: RODNEY FIGUEROA MD History of Present Illness: LUAN MYRICK is a 86 year old female patient who is a [facility] resident, brought with chief complaint of hyperglycemia. Since patient has underlying cognitive impairment history is limited. Patient is a known case of dementia, schizophrenia, bipolar disorder, seizure disorder, hypertension and diabetes mellitus. On arrival patient was found to have hyperglycemia with blood glucose of 514 for which she was given insulin and a liter of bolus of normal saline and her latest blood sugar is 220. Her initial blood work shows WBC of 12.4 lactic acid of 3.6, creatinine of 1.36. Her attending totally worked up the patient with CT scan of the abdomen and pelvis, chest x-ray and Doppler ultrasound on Evans negative. Since she has elevated lactic acid we will keep the patient overnight and her blood sugar remained stable and repeat lab tests are within normal limits patient can be discharged next a day. Past Medical History Cardiac Medical History: Reports: Coronary Artery Disease, Myocardial Infarction , Hyperlipidema, Hypertension Denies: Heart Murmur Pulmonary Medical History: Reports: Pneumonia Denies: Respiratory Failure, Sleep Apnea, Tuberculosis Neurological Medical History: Reports: Seizures - "long time ago" Endocrine Medical History: Reports: Diabetes Mellitus Type 2 Renal/ Medical History: Malignancy Medical History: GI Medical History: Denies: Hiatal Hernia Musculoskeltal Medical History: Reports: Arthritis - osteo Psychiatric Medical History: Reports: Bipolar Disorder, Dementia, Depression Hematology: Denies: Anemia, Hemophilia, Sickle Cell Disease Infectious Medical History: Past Surgical History Past Surgical History: Reports: Appendectomy, Cardiac Catheterization, Cholecystectomy, Hysterectomy, Orthopedic Surgery - back surgery x 7, Tonsillectomy Denies: Amputation Social History Lives with: [facility] Smoking Status: Never Smoker Frequency of Alcohol Use: None Hx Recreational Drug Use: No Hx Prescription Drug Abuse: No Family History Family History: Reviewed & Not Pertinent Parental Family History Reviewed: No - Not obtained because of her underlying cognitive impairment Children Family History Reviewed: No Sibling(s) Family History Reviewed.: No Medication/Allergy Home Medications: Acetaminophen [Tylenol 325 mg Tablet] 650 mg PO Q4HP PRN 06/20/17 Amlodipine Besylate [Norvasc 5 mg Tablet] 5 mg PO Q12 06/20/17 Aripiprazole [Abilify 10 mg Tablet] 10 mg PO DAILY 06/20/17 Aspirin [Aspirin EC] 81 mg PO DAILY 06/20/17 Bismuth Subsalicylate [Pepto-Bismol Susp 524 mg/30 ml Udcup] 30 ml PO Q4HP PRN 06/20/17 Calcium Carbonate/Vitamin D3 [Oyster Shell 500-Vit D3 200 Tb] 1 tab PO DAILY 09/01 Clonidine [Catapres-Tts 3 (0.3 mg/24 Hr) Transderm Patch] 1 patch TOP TU@1000 Dextran 70/Hypromellose [Artificial Tears Eye Drops] 1 drop OU QID 06/20/17 Donepezil HCl [Aricept] 10 mg PO QHS 06/20/17 Eszopiclone [Lunesta] 3 mg PO HSP PRN 06/20/17 Fenofibrate Nanocrystallized [Fenofibrate] 48 mg PO DAILY 06/20/17 Ferrous Sulfate [Feosol 325 mg Tablet] 325 mg PO BID 06/20/17 Furosemide [Lasix 20 mg Tablet] 20 mg PO DAILYP PRN 06/20/17 Guaifenesin [Robitussin Syrup 200 mg/10 ml Ud Cup] 10 ml PO Q4HP PRN 06/20/17 Guaifenesin/Dextromethorphan [Mucinex Dm ER 1,200-60 mg Tab] 1 tab PO BIDP PRN 06/20/17 Hydralazine HCl [Apresoline 25 mg Tablet] 25 mg PO Q8 06/20/17 Hydrocodone/Acetaminophen [[place] 5-325 mg Tablet] 1 tab PO HSP PRN 06/20/17 Insulin Aspart [Novolog Flexpen] 8 units SQ MEALS 06/20/17 Insulin Detemir [Levemir Flextouch] 55 units SQ Q12 06/20/17 Isosorbide Mononitrate [Imdur 30 mg Tablet.er] 30 mg PO DAILY 06/20/17 Lansoprazole [Prevacid 30 mg Odt Tablet] 30 mg PO Q6AM 06/20/17 Liraglutide [Victoza 2-Kendrick] 1.2 mg SQ DAILY@1400 06/20/17 Mirtazapine [Remeron 15 mg Tablet] 15 mg PO QHS 06/20/17 Paroxetine HCl [Paxil] 40 mg PO DAILY 06/20/17 Ranolazine [Ranexa 500 mg Tab.sr] 500 mg PO Q12 06/20/17 Rosuvastatin Calcium [Crestor 20 mg Tablet] 20 mg PO QHS 06/20/17 Valsartan [Diovan] 320 mg PO DAILY 06/20/17 Allergies/Adverse Reactions: celecoxib [From Celebrex] Allergy (Intermediate, Verified 05/07/17 02:54) gabapentin [From Neurontin] Allergy (Intermediate, Verified 05/07/17 02:54) lamotrigine [From Lamictal] Allergy (Intermediate, Verified 05/07/17 02:54) meloxicam [From Mobic] Allergy (Intermediate, Verified 05/07/17 02:54) thiothixene [From Navane] Allergy (Intermediate, Verified 05/07/17 02:54) amoxicillin trihydrate [From Augmentin] Allergy (Unknown, Verified 05/07/17 02: 54) citalopram hydrobromide [From Celexa] Allergy (Unknown, Verified 05/07/17 02:54) codeine [Codeine] Allergy (Unknown, Verified 05/07/17 02:54) divalproex sodium [From Depakote] Allergy (Unknown, Verified 05/07/17 02:54) hydrocodone bitartrate [From Lorcet 10/650] Allergy (Unknown, Verified 05/07/17 02:54) methocarbamol [From Robaxin] Allergy (Unknown, Verified 05/07/17 02:54) nabumetone [From Relafen] Allergy (Unknown, Verified 05/07/17 02:54) oxycodone [Oxycodone] Allergy (Unknown, Verified 05/07/17 02:54) Sulfa (Sulfonamide Antibiotics) Allergy (Unknown, Verified 05/07/17 02:54) terazosin [Terazosin] Allergy (Unknown, Verified 05/07/17 02:54) tramadol HCl [From Ultram] Allergy (Unknown, Verified 05/07/17 02:54) Review of Systems ROS unobtainable: Due to mental status Physical Exam Vital Signs: Temp Pulse Resp BP Pulse Ox 99.3 F 15 165/85 H 99 06/20/17 19:03 06/20/17 19:03 06/20/17 17:30 06/20/17 19:03 Results Laboratory Results: 06/20/17 15:08 06/20/17 15:08 06/20/17 06/20/17 06/20/17 15:08 15:08 16:17 WBC 12.4 H RBC 3.65 L Hgb 10.5 L Hct 32.1 L MCV 88 MCH 28.6 MCHC 32.6 RDW 13.3 Plt Count 458 H Seg Neutrophils % 83.7 H Lymphocytes % 8.1 L Monocytes % 7.8 Eosinophils % 0.1 Basophils % 0.3 Absolute Neutrophils 10.4 H Absolute Lymphocytes 1.0 Absolute Monocytes 1.0 Absolute Eosinophils 0.0 Absolute Basophils 0.0 Sodium 131.7 L Potassium 4.9 Chloride 93 L Carbon Dioxide 22 Anion Gap 17 BUN 25 H Creatinine 1.36 H Est GFR ( Amer) 45 L Est GFR (Non-Af Amer) 37 L Glucose 514 H* Lactic Acid Calcium 9.3 Total Bilirubin 0.3 AST 36 ALT 37 Alkaline Phosphatase 163 H Total Protein 7.3 Albumin 4.1 Urine Color YELLOW Urine Appearance CLEAR Urine pH 5.0 Ur Specific [place] 1.017 Urine Protein NEGATIVE Urine Glucose (UA) >=500 H Urine Ketones NEGATIVE Urine Blood SMALL H Urine Nitrite NEGATIVE Ur Leukocyte Esterase NEGATIVE Urine WBC (Auto) 0 Urine RBC (Auto) 0 06/20/17 16:26 WBC RBC Hgb Hct MCV MCH MCHC RDW Plt Count Seg Neutrophils % Lymphocytes % Monocytes % Eosinophils % Basophils % Absolute Neutrophils Absolute Lymphocytes Absolute Monocytes Absolute Eosinophils Absolute Basophils Sodium Potassium Chloride Carbon Dioxide Anion Gap BUN Creatinine Est GFR ( Amer) Est GFR (Non-Af Amer) Glucose Lactic Acid 3.3 H Calcium Total Bilirubin AST ALT Alkaline Phosphatase Total Protein Albumin Urine Color Urine Appearance Urine pH Ur Specific [place] Urine Protein Urine Glucose (UA) Urine Ketones Urine Blood Urine Nitrite Ur Leukocyte Esterase Urine WBC (Auto) Urine RBC (Auto) 06/20/17 15:08 Troponin I 0.051 Impressions: Hip/Pelvis X-Ray 06/20/17 16:00 IMPRESSION: NEGATIVE STUDY OF THE RIGHT HIP. NO RADIOGRAPHIC EVIDENCE OF ACUTE INJURY. Venous Doppler Study 06/20/17 16:00 IMPRESSION: NO EVIDENCE DVT OR SVT IN THE RIGHT LEG. Chest X-Ray 06/20/17 16:34 IMPRESSION: Mild chronic lung changes with no acute cardiopulmonary disease. Abdomen/Pelvis CT 06/20/17 17:30 IMPRESSION: 1. There is no acute abnormality in the abdomen or pelvis. 2. There are surgical changes in the lumbar spine. Assessment & Plan - Diagnosis (1) Bipolar disorder Is this a current diagnosis for this admission?: Yes Plan: Continue home medication (2) Schizophrenia Is this a current diagnosis for this admission?: Yes Plan: Patient is in remission and will continue her home medication. 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 - Time Critical Time spent with patient: 25-34 minutes
[2017-06-20] MEDS: HEPARIN SOD (PORCINE) 5,000 UNIT/ML 1 ML SYRINGE SUBCUT SCH (22:00)
[2017-06-21] MEDS: HEPARIN SOD (PORCINE) 5,000 UNIT/ML 1 ML SYRINGE SUBCUT SCH ×2 (05:03→14:26)
[2017-06-21] MEDS ORDERED: LANSOPRAZOLE 30 MG TAB.RAP.DR PO SCH (06:00)
[2017-06-21] MEDS ORDERED: HYDRALAZINE HCL INJ/PF 20 MG/1 ML SDV ONE (08:53)
[2017-06-21] MEDS ORDERED: AMLODIPINE BESYLATE 10 MG TABLET PO ONE (09:00)
[2017-06-21] MEDS ORDERED: HYDRALAZINE HCL INJ/PF 20 MG/1 ML SDV IV ONE (09:00)
[2017-06-21] MEDS ORDERED: FUROSEMIDE 20 MG TABLET PO PRN (09:00)
[2017-06-21] MEDS ORDERED: HYDROCODONE/ACETAMINOPHEN 5-325 MG TABLET PO PRN (09:00)
[2017-06-21] MEDS ORDERED: (PENDING PHARMACY ID) (Bismuth Subsalicylate 30 ML) PO PRN (09:00)
[2017-06-21] MEDS ORDERED: INSULIN DETEMIR 100 UNIT/ML 3 ML PEN SUBCUT ONE ×2 (09:10→11:00)
[2017-06-21] MEDS ORDERED: INSULIN LISPRO 100 UNIT/ML 3 ML VIAL SUBCUT PRN (09:11)
[2017-06-21 09:21] LABS: HEMATOCRIT 28.9 % (36.0-47.0); HEMOGLOBIN 9.7 g/dL (12.0-15.5); MEAN CORPUSCULAR HEMOGLOBIN 29.2 pg (27.0-33.4); MEAN CORPUSCULAR HGB CONC 33.7 g/dL (32.0-36.0); MEAN CORPUSCULAR VOLUME 87 fl (80-97); PLATELET COUNT 349 10^3/uL (150-450); RED BLOOD COUNT 3.33 10^6/uL (3.72-5.28); RED CELL DISTRIBUTION WIDTH 12.6 % (11.5-14.0); WHITE BLOOD COUNT 7.1 10^3/uL (4.0-10.5)
[2017-06-21 09:42] LABS: ANION GAP 8 (5-19); BLOOD UREA NITROGEN 20 mg/dL (7-20); CALCIUM 8.9 mg/dL (8.4-10.2); CARBON DIOXIDE 25 mmol/L (22-30); CHLORIDE 104 mmol/L (98-107); GLUCOSE 235 mg/dL (75-110); POTASSIUM 4.5 mmol/L (3.6-5.0); SODIUM 137.2 mmol/L (137-145)
[2017-06-21] MEDS ORDERED: INSULIN LISPRO 100 UNIT/ML 3 ML VIAL SUBCUT ONE ×2 (09:45→15:30)
[2017-06-21] MEDS ORDERED: BISMUTH SUBSALICYLATE 524 MG/30 ML PO PRN (09:53)
[2017-06-21] MEDS ORDERED: UDCUP PO PRN (09:53)
[2017-06-21] MEDS ORDERED: ARIPIPRAZOLE 5 MG TABLET PO SCH ×2 (10:00→11:00)
[2017-06-21] MEDS ORDERED: VALSARTAN 160 MG TABLET PO SCH (10:00)
[2017-06-21] MEDS ORDERED: (PENDING PHARMACY ID) (Valsartan [Diovan] 320 MG) PO SCH (10:00)
[2017-06-21] MEDS ORDERED: FERROUS SULFATE 325 MG TABLET PO SCH (10:00)
[2017-06-21] MEDS ORDERED: DOCUSATE SODIUM 100 MG CAPSULE PO SCH (10:00)
[2017-06-21] MEDS ORDERED: CALCIUM CARBONATE 250 MG/VITAMIN D3 125 UNIT TABLET PO SCH (10:00)
[2017-06-21] MEDS ORDERED: (PENDING PHARMACY ID) (Aripiprazole [Abilify 10 Mg Tablet] 10 MG) PO SCH (10:00)
[2017-06-21] MEDS ORDERED: AMLODIPINE BESYLATE 5 MG TABLET PO SCH (10:00)
[2017-06-21] MEDS ORDERED: ISOSORBIDE MONONITRATE 30 MG TAB.ER.24H PO SCH (10:00)
[2017-06-21] MEDS ORDERED: ASPIRIN 81 MG TABLET, ENT COATED PO SCH (10:00)
[2017-06-21] MEDS ORDERED: (PENDING PHARMACY ID) (Calcium Carbonate/Vitamin D3 [Oyster Shell 500-Vit D3 200 Tb] 1 TAB PO SCH (10:00)
[2017-06-21] MEDS ORDERED: BISMUTH SUBSALICYLATE 262 MG TAB.CHEW PO PRN (10:26)
[2017-06-21] MEDS ORDERED: RANOLAZINE 500 MG TAB.SR.12H PO ONE (11:00)
[2017-06-21] MEDS ORDERED: FENOFIBRATE NANOCRYSTALLIZED 48 MG TABLET PO SCH (11:00)
[2017-06-21] MEDS: INSULIN LISPRO 100 UNIT/ML 3 ML VIAL SUBCUT SCH ×2 (12:01→15:41)
[2017-06-21 13:15] VITALS: BP 146/71
--- NOTE | 2017-06-21 13:53 | PDOC DISCHARGE SUMMARY ---
General - Admit/Disc Date/PCP Admission Date/Primary Care Provider: 06/20/17 21:11 RODNEY FIGUEROA MD Discharge Date: 06/21/17 - Discharge Diagnosis (1) Lactic acidosis Is this a current diagnosis for this admission?: Yes (2) NICO (acute kidney injury) Is this a current diagnosis for this admission?: Yes (3) Hyperglycemia due to type 2 diabetes mellitus Is this a current diagnosis for this admission?: Yes (4) Schizophrenia Is this a current diagnosis for this admission?: Yes (5) Hyperlipidemia Is this a current diagnosis for this admission?: Yes (6) Malignant hypertension Is this a current diagnosis for this admission?: Yes (7) CKD (chronic kidney disease) stage 2, GFR 60-89 ml/min Is this a current diagnosis for this admission?: Yes - Additional Information Resuscitation Status: Full Code Discharge Diet: Diabetic Discharge Activity: Activity As Tolerated Home Medications: Acetaminophen [Tylenol 325 mg Tablet] 650 mg PO Q4HP PRN 06/20/17 Amlodipine Besylate [Norvasc 5 mg Tablet] 5 mg PO Q12 06/20/17 Aripiprazole [Abilify 10 mg Tablet] 10 mg PO DAILY 06/20/17 Aspirin [Aspirin EC] 81 mg PO DAILY 06/20/17 Bismuth Subsalicylate [Pepto-Bismol Susp 524 mg/30 ml Udcup] 30 ml PO Q4HP PRN 06/20/17 Calcium Carbonate/Vitamin D3 [Oyster Shell 500-Vit D3 200 Tb] 1 tab PO DAILY 09/01 Clonidine [Catapres-Tts 3 (0.3 mg/24 Hr) Transderm Patch] 1 patch TOP TU@1000 Dextran 70/Hypromellose [Artificial Tears Eye Drops] 1 drop OU QID 06/20/17 Donepezil HCl [Aricept] 10 mg PO QHS 06/20/17 Eszopiclone [Lunesta] 3 mg PO HSP PRN 06/20/17 Fenofibrate Nanocrystallized [Fenofibrate] 48 mg PO DAILY 06/20/17 Ferrous Sulfate [Feosol 325 mg Tablet] 325 mg PO BID 06/20/17 Furosemide [Lasix 20 mg Tablet] 20 mg PO DAILYP PRN 06/20/17 Guaifenesin [Robitussin Syrup 200 mg/10 ml Ud Cup] 10 ml PO Q4HP PRN 06/20/17 Guaifenesin/Dextromethorphan [Mucinex Dm ER 1,200-60 mg Tab] 1 tab PO BIDP PRN 06/20/17 Hydrocodone/Acetaminophen [[place] 5-325 mg Tablet] 1 tab PO HSP PRN 06/20/17 Isosorbide Mononitrate [Imdur 30 mg Tablet.er] 30 mg PO DAILY 06/20/17 Lansoprazole [Prevacid 30 mg Odt Tablet] 30 mg PO Q6AM 06/20/17 Liraglutide [Victoza 2-Kendrick] 1.2 mg SQ DAILY@1400 06/20/17 Mirtazapine [Remeron 15 mg Tablet] 15 mg PO QHS 06/20/17 Paroxetine HCl [Paxil] 40 mg PO DAILY 06/20/17 Ranolazine [Ranexa 500 mg Tab.sr] 500 mg PO Q12 06/20/17 Rosuvastatin Calcium [Crestor 20 mg Tablet] 20 mg PO QHS 06/20/17 Valsartan [Diovan] 320 mg PO DAILY 06/20/17 Hydralazine HCl [Apresoline 25 mg Tablet] 50 mg PO Q8 tablet 06/21/17 Insulin Lispro [Humalog Insulin (Lispro) 100 unit/mL] 10 unit SUBCUT AC unit History of Present Illness History of Present Illness: LUAN MYRICK is a 86 year old female patient who is a skilled nursing resident, brought with chief complaint of hyperglycemia. Since patient has underlying cognitive impairment history was limited. Patient is a known case of dementia, schizophrenia, bipolar disorder, seizure disorder, hypertension and diabetes mellitus. On arrival patient was found to have hyperglycemia with blood glucose of 514 for which she was given insulin and a liter of bolus of normal saline and blood sugar came down to 220. Her initial blood work showed WBC of 12.4, lactic acid of 3.6, creatinine of 1.36. Her attending totally worked up the patient with CT scan of the abdomen and pelvis, chest x-ray and Doppler ultrasound on Evans negative. Since she has elevated lactic acid the patient was kept overnight. Hospital Course Hospital Course: Lactic acid improved with gentle hydration. Patient did not display signs of infectious process. We increased Levemir to 60 units subcu every 12 hours and also increased Humalog to 10 units subcu pre-meal. Further adjustment to her outpatient regimen can be pursued by Dr Figueroa at the skilled nursing. Have to suspicion that probably antipsychotic medication may be playing a role and on control of diabetes.Blood pressure was transiently elevated and responded to placing her back on her regular antihypertensive regimen. We increased Norvasc dose on discharge. I do not think this is a hypertensive urgency but basically due to uncontrolled hihg blood pressure. There was a transient elevation in renal functions and improved with hydration therefore deemd secondary to volume contraction. Likely related to patient being dehydrated due to uncontrolled diabetes. Since patient had achieved maximum benefit of hospitalization stay and was stable prompted to discharge Physical Exam Vital Signs: Temp Pulse Resp BP Pulse Ox 99.1 F 72 16 134/67 H 98 06/21/17 00:00 06/21/17 00:00 06/21/17 00:00 06/21/17 00:00 06/21/17 00:00 Intake & Output 06/20/17 06/21/17 06/22/17 06:59 06:59 06:59 Intake Total 120 Balance 120 Weight 90.7 kg General appearance: PRESENT: morbidly obese Head exam: PRESENT: atraumatic, normocephalic Eye exam: PRESENT: conjunctiva pink, EOMI, PERRLA Mouth exam: PRESENT: moist Neck exam: PRESENT: full ROM. ABSENT: JVD, lymphadenopathy, tenderness Respiratory exam: PRESENT: clear to auscultation john Cardiovascular exam: PRESENT: RRR. ABSENT: diastolic murmur, systolic murmur Vascular exam: PRESENT: normal capillary refill GI/Abdominal exam: PRESENT: normal bowel sounds, soft. ABSENT: tenderness Extremities exam: PRESENT: full ROM, +1 edema Musculoskeletal exam: ABSENT: ambulatory Neurological exam: PRESENT: alert, awake, oriented to person Psychiatric exam: PRESENT: appropriate affect, normal mood Skin exam: PRESENT: intact, normal color Results Laboratory Results: 06/21/17 03:48 Lactic Acid 1.1 Impressions: Hip/Pelvis X-Ray 06/20/17 16:00 IMPRESSION: NEGATIVE STUDY OF THE RIGHT HIP. NO RADIOGRAPHIC EVIDENCE OF ACUTE INJURY. Venous Doppler Study 06/20/17 16:00 IMPRESSION: NO EVIDENCE DVT OR SVT IN THE RIGHT LEG. Chest X-Ray 06/20/17 16:34 IMPRESSION: Mild chronic lung changes with no acute cardiopulmonary disease. Abdomen/Pelvis CT 06/20/17 17:30 IMPRESSION: 1. There is no acute abnormality in the abdomen or pelvis. 2. There are surgical changes in the lumbar spine. Qualifiers - * PATEINT BEING DISCHARGED WITH ANY OF THE FOLLOWING DIAGNOSIS?: No Plan Discharge Plan: Transfer to skilled nursing Time Spent: Less than 30 Minutes
[2017-06-21] MEDS ORDERED: HYDRALAZINE HCL 25 MG TABLET PO SCH ×2 (14:00)
[2017-06-21] MEDS ORDERED: MIRTAZAPINE 15 MG TABLET PO SCH (22:00)
[2017-06-21] MEDS ORDERED: INSULIN DETEMIR 100 UNIT/ML 3 ML PEN SUBCUT SCH (22:00)
[2017-06-21] MEDS ORDERED: RANOLAZINE 500 MG TAB.SR.12H PO SCH (22:00)
[2017-06-22] MEDS ORDERED: LANSOPRAZOLE 30 MG TAB.RAP.DR PO SCH (06:00)
[2017-06-24] MEDS ORDERED: CLONIDINE 0.3 MG/24 HR PATCH.TDWK TOP SCH (10:00)
== END 2017-06-21 17:26 ==
LOC: ER 15:41 → EH 21:11 → 5 22:51
PROVIDERS: ADMIT Internal Medicine; ATTEND Internal Medicine
DX: E87.2 Acidosis (principal); N17.9 Acute kidney failure, unspecified; I12.9 Hypertensive chronic kidney disease with stage 1 through stage 4 chronic kidney disease, or unspecified chronic kidney disease; N18.2 Chronic kidney disease, stage 2 (mild); E11.65 Type 2 diabetes mellitus with hyperglycemia; E11.22 Type 2 diabetes mellitus with diabetic chronic kidney disease; G30.9 Alzheimer's disease, unspecified; F02.80 Dementia in other diseases classified elsewhere, unspecified severity, without behavioral disturbance, psychotic disturbance, mood disturbance, and anxiety; I25.10 Atherosclerotic heart disease of native coronary artery without angina pectoris; I25.2 Old myocardial infarction; F31.9 Bipolar disorder, unspecified; F20.9 Schizophrenia, unspecified; Z79.4 Long term (current) use of insulin
CPT/HCPCS: 93005; 99285; 96360; 51701; 36415 ×2; 87040; 87086; 82962 ×2; 85025; 85027; 80048; 80053; 81001; 84484; 83605 ×2; 93971; 71045; 73502; 74176; 93010; A9270 ×15; J1644 ×2; J0360; J3490 ×2; J7030 ×2; J1815

== ENCOUNTER 2017-06-24 06:33 | Inpatient (IN) | payer MEDICARE, OTHER ==
--- NOTE | 2017-06-24 06:51 | ER Document Report ---
ED General - General Mode of Arrival: Medic Information source: Patient, Emergency Med Personnel Cannot obtain history due to: Dementia TRAVEL OUTSIDE OF THE [place] IN LAST 30 DAYS: No <WHITLEY JOSHUA - Last Filed: 06/24/17 11:29> <JAVIER WAGNER - Last Filed: 06/24/17 14:50> - General Stated Complaint: BLOOD SUGAR ISSUES Time Seen by Provider: 06/24/17 06:41 Notes: Patient is an 86 year old female with a known history of dementia presents to the emergency department via EMS from [facility] for low blood sugar. History is related that patient's blood sugar was checked around 0600 and found to be 26, patient was asleep at that time. Patient's history is limited due to dementia and only complains of leg pain. At bedside patient is covered in vomit although EMS and nursing staff did not witness emesis. (WHITLEY JOSHUA) - Related Data Allergies/Adverse Reactions: celecoxib [From Celebrex] Allergy (Intermediate, Verified 05/07/17 02:54) gabapentin [From Neurontin] Allergy (Intermediate, Verified 05/07/17 02:54) lamotrigine [From Lamictal] Allergy (Intermediate, Verified 05/07/17 02:54) meloxicam [From Mobic] Allergy (Intermediate, Verified 05/07/17 02:54) thiothixene [From Navane] Allergy (Intermediate, Verified 05/07/17 02:54) amoxicillin trihydrate [From Augmentin] Allergy (Unknown, Verified 05/07/17 02: 54) citalopram hydrobromide [From Celexa] Allergy (Unknown, Verified 05/07/17 02:54) codeine [Codeine] Allergy (Unknown, Verified 05/07/17 02:54) divalproex sodium [From Depakote] Allergy (Unknown, Verified 05/07/17 02:54) hydrocodone bitartrate [From Lorcet 10/650] Allergy (Unknown, Verified 05/07/17 02:54) methocarbamol [From Robaxin] Allergy (Unknown, Verified 05/07/17 02:54) nabumetone [From Relafen] Allergy (Unknown, Verified 05/07/17 02:54) oxycodone [Oxycodone] Allergy (Unknown, Verified 05/07/17 02:54) Sulfa (Sulfonamide Antibiotics) Allergy (Unknown, Verified 05/07/17 02:54) terazosin [Terazosin] Allergy (Unknown, Verified 05/07/17 02:54) tramadol HCl [From Ultram] Allergy (Unknown, Verified 05/07/17 02:54) Past Medical History - General Information source: Emergency Med Personnel Cannot obtain history due to: Dementia - Social History Smoking Status: Unknown if Ever Smoked Family History: Reviewed & Not Pertinent - Past Medical History Cardiac Medical History: Reports: Hx Coronary Artery Disease, Hx Heart Attack, Hx Hypercholesterolemia, Hx Hypertension Pulmonary Medical History: Reports: Hx Pneumonia Neurological Medical History: Reports: Hx Cerebrovascular Accident - Residual symptoms include left sided arm and leg numbness and weakness, Hx Seizures - "long time ago" Endocrine Medical History: Reports: Hx Diabetes Mellitus Type 2 Renal/ Medical History: Malignancy Medical History: GI Medical History: Musculoskeltal Medical History: Reports Hx Arthritis - osteo Psychiatric Medical History: Reports: Hx Anxiety, Hx Bipolar Disorder, Hx Dementia, Hx Depression, Hx Schizophrenia Traumatic Medical History: Infectious Medical History: Past Surgical History: Reports: Hx Appendectomy, Hx Cardiac Catheterization, Hx Cholecystectomy, Hx Hysterectomy, Hx Orthopedic Surgery - back surgery x 7, Hx Tonsillectomy - Immunizations Hx Diphtheria, Pertussis, Tetanus Vaccination: Yes Hx Pneumococcal Vaccination: 03/17/09 <WHITLEY JOSHUA - Last Filed: 06/24/17 11:29> Review of Systems - Review of Systems -: Yes ROS unobtainable due to patient's medical condition - Patient has dementia <WHITLEY JOSHUA - Last Filed: 06/24/17 11:29> Physical Exam <WHITLEY JOSHUA - Last Filed: 06/24/17 11:29> <JAVIER WAGNER - Last Filed: 06/24/17 14:50> - Vital signs Vitals: Resp BP 16 122/75 06/24/17 06:43 06/24/17 06:43 - Notes Notes: GENERAL: Alert, interacts well. No acute distress. Vomit found on chest. HEAD: Normocephalic, atraumatic. EYES: Pupils equal, round, and reactive to light. Extraocular movements intact. ENT: Oral mucosa moist, tongue midline. NECK: Full range of motion. Supple. Trachea midline. LUNGS: Clear to auscultation bilaterally, no wheezes, rales, or rhonchi. No respiratory distress. HEART: Regular rate and rhythm. No murmurs, gallops, or rubs. ABDOMEN: Soft, non-tender. Moderately distended, periumbilical hernia, easily reducible which immediately protrudes. Bowel sounds present in all 4 quadrants. EXTREMITIES: Moves all 4 extremities spontaneously. No edema, radial and dorsalis pedis pulses 2/4 bilaterally. No cyanosis. NEUROLOGICAL: Alert and oriented to person and place, does not know the year or president. Normal speech. PSYCH: Normal affect, normal mood. SKIN: Feet are cool to the touch, dry, normal turgor. No rashes or lesions noted. (WHITLEY JOSHUA) Course - Laboratory Result Diagrams: 06/24/17 07:22 06/24/17 07:22 <WHITLEY JOSHUA - Last Filed: 06/24/17 11:29> - Laboratory Result Diagrams: 06/24/17 07:22 06/24/17 07:22 <JAVIER WAGNER - Last Filed: 06/24/17 14:50> - Re-evaluation Re-evalutation: 06/24/17 11:26 Patient was found to be responsive but hypothermic on arrival, bear hugger was placed on patient, we had difficulty obtaining IV access, eventually placed an ultrasound-guided IV in the right upper arm 20-gauge. Laboratory studies revealed leukocytosis at 13.9 with anemia with hemoglobin 10.7, platelet count elevated at 453, venous blood gas is not acidotic, chemistries show slightly low CO2 at 20, BUN is elevated at 36, glucose now elevated 236, lactic acid is elevated at 3.5 otherwise unremarkable, thyroid functions are normal, urinalysis discharge show glucose but does not show any source of infection. Acute abdominal series does not show any obstruction nor does it show a pneumonia on the chest x-ray. At this point I am concerned by her hypothermia, hypoglycemia and elevated lactic acid that there may be occult bacteremia. I discussed the patient with nurse practitioner Becki Matta who agrees to accept the patient to her service in admission status on the telemetry care unit for further investigation and management. (JAVIER WAGNER) - Vital Signs Vital signs: Temp Pulse Resp BP Pulse Ox 99.3 F 21 H 142/63 H 100 06/24/17 13:01 06/24/17 13:01 06/24/17 13:01 06/24/17 13:01 - Laboratory Laboratory results interpreted by me: 06/24/17 06/24/17 06/24/17 07:22 07:22 07:22 WBC 13.9 H Hgb 10.7 L Hct 33.1 L Plt Count 453 H Seg Neutrophils % 90.1 H Lymphocytes % 5.1 L Absolute Neutrophils 12.5 H Carbon Dioxide 20 L BUN 36 H Est GFR ( Amer) 50 L Est GFR (Non-Af Amer) 41 L Glucose 263 H POC Glucose Lactic Acid 3.5 H Alkaline Phosphatase 137 H Urine Protein Urine Glucose (UA) 06/24/17 06/24/17 07:58 08:28 WBC Hgb Hct Plt Count Seg Neutrophils % Lymphocytes % Absolute Neutrophils Carbon Dioxide BUN Est GFR ( Amer) Est GFR (Non-Af Amer) Glucose POC Glucose 236 H Lactic Acid Alkaline Phosphatase Urine Protein 30 H Urine Glucose (UA) >=500 H - EKG Interpretation by Me Additional EKG results interpreted by me: 06/24/17 11:28 EKG shows sinus rhythm at a rate of 76, left axis deviation, borderline prolonged QT interval, no ST segment elevations or depressions, no ischemic T- wave inversions per my interpretation. (JAVIER WAGNER) Discharge <WHITLEY JOSHUA - Last Filed: 06/24/17 11:29> - Discharge Admitting Provider: Hospitalist - [place] [facility] Admitted: Telemetry <JAVIER WAGNER - Last Filed: 06/24/17 14:50> - Discharge Clinical Impression: Hypoglycemia, Lactic acidosis Hypothermia Qualifiers: Encounter type: initial encounter Qualified Code(s): T68.XXXA - Hypothermia, initial encounter Condition: Fair Disposition: ADMITTED INPATIENT Scribe Attestation: 06/24/17 11:28 I personally performed the services described in the documentation, reviewed and edited the documentation which was dictated to the scribe in my presence, and it accurately records my words and actions. (JAVIER WAGNER) Scribe Documentation - Scribe Written by Scribe:: Chanelle Cary, 06/24/2017 07:00 acting as scribe for :: Marquez <WHITLEY JOSHUA - Last Filed: 06/24/17 11:29>
[2017-06-24 07:51] LABS: ABSOLUTE BASOPHILS # (AUTO) 0.1 10^3/uL (0.0-0.2); ABSOLUTE LYMPHOCYTES (AUTO) 0.7 10^3/uL (0.5-4.7); ABSOLUTE MONOCYTES (AUTO) 0.6 10^3/uL (0.1-1.4); ABSOLUTE NEUT (AUTO) 12.5 10^3/uL (1.7-8.2); BASOPHILS % (AUTO) 0.5 % (0-2); EOSINOPHILS % (AUTO) 0.2 % (0-6); HEMATOCRIT 33.1 % (36.0-47.0); HEMOGLOBIN 10.7 g/dL (12.0-15.5); LYMPHOCYTES % (AUTO) 5.1 % (13-45); MEAN CORPUSCULAR HEMOGLOBIN 28.4 pg (27.0-33.4); MEAN CORPUSCULAR HGB CONC 32.3 g/dL (32.0-36.0); MEAN CORPUSCULAR VOLUME 88 fl (80-97); MONOCYTES % (AUTO) 4.1 % (3-13); PLATELET COUNT 453 10^3/uL (150-450); RED BLOOD COUNT 3.76 10^6/uL (3.72-5.28); RED CELL DISTRIBUTION WIDTH 13.5 % (11.5-14.0); SEGMENTED NEUTROPHILS % (AUTO) 90.1 % (42-78); TOTAL CELLS COUNTED % (AUTO) 100 %; WHITE BLOOD COUNT 13.9 10^3/uL (4.0-10.5)
[2017-06-24 08:09] LABS: ALANINE AMINOTRANSFERASE 36 U/L (9-52); ALBUMIN 3.9 g/dL (3.5-5.0); ALKALINE PHOSPHATASE 137 U/L (38-126); ANION GAP 16 (5-19); ASPARTATE AMINO TRANSFERASE 35 U/L (14-36); BILIRUBIN,DIRECT 0.2 mg/dL (0.0-0.4); BILIRUBIN,TOTAL 0.3 mg/dL (0.2-1.3); BLOOD UREA NITROGEN 36 mg/dL (7-20); CALCIUM 9.6 mg/dL (8.4-10.2); CARBON DIOXIDE 20 mmol/L (22-30); CHLORIDE 105 mmol/L (98-107); GLUCOSE 263 mg/dL (75-110); POTASSIUM 4.6 mmol/L (3.6-5.0); SODIUM 141.2 mmol/L (137-145); TOTAL PROTEIN 6.8 g/dL (6.3-8.2)
[2017-06-24] MEDS ORDERED: CEFEPIME 2 GM/D5W RTU 2 GM/50 ML RTUPB IV ONE (08:28)
[2017-06-24] MEDS ORDERED: HYDROCODONE/ACETAMINOPHEN 5-325 MG TABLET PO ONE (08:52)
[2017-06-24 09:00] LABS: APPEARANCE,URINE SLIGHTLY-CLOUDY; BILIRUBIN,URINE NEGATIVE (NEGATIVE); COLOR,URINE YELLOW; GLUCOSE, URINE >=500 mg/dL (NEGATIVE); KETONES,URINE NEGATIVE (NEGATIVE); LEUKOCYTE ESTERASE,URINE NEGATIVE (NEGATIVE); NITRITE,URINE NEGATIVE (NEGATIVE); PROTEIN,URINE 30 mg/dL (NEGATIVE); UROBILINOGEN,URINE NEGATIVE mg/dL (<2.0)
[2017-06-24] MEDS ORDERED: NORMAL SALINE 1000 ML 1,000 ML IV ONE (09:17)
--- NOTE | 2017-06-24 09:29 | RADIOLOGY REPORT (SQ) ---
EXAM DESCRIPTION: ACUTE ABDOMEN SERIES COMPLETED DATE/TIME: 06/24/2017 9:07 am REASON FOR STUDY: vomiting, hypoglycemia COMPARISON: CT abdomen pelvis 06/20/2017, 09/25/2013 Supine and erect views of the abdomen 09/25/2013 NUMBER OF VIEWS: Three views. TECHNIQUE: Frontal chest, supine abdomen and upright abdomen radiographic images acquired. LIMITATIONS: None. FINDINGS: CHEST: No focal infiltrates. No pleural effusion or pneumothorax. Borderline cardiomegal y. Advanced arthritis both shoulders. Old lower cervical fusion hardware. FREE AIR: No subdiaphragmatic free air BOWEL GAS PATTERN: Diffuse gaseous distention of stomach. Decompressed small bowel and colon CALCIFICATIONS: No suspicious calcifications. HARDWARE: Barker catheter in the bladder SOFT TISSUES: No gross mass or suggestion of organomegaly. BONES: No acute fracture. No worrisome bone lesions. OTHER: No other significant finding. IMPRESSION: Diffuse gaseous distention of the stomach out of proportion to colon and small bowel. Q uestion gastroparesis versus gastric outlet compromise from stricture or ulcer. TECHNICAL DOCUMENTATION: JOB ID: [id number] [employer]- All Rights Reserved Reading location - IP/workstation name: [id number]
[2017-06-24 09:50] LABS: VENOUS BLOOD BASE EXCESS -3.1 mmol/L; VENOUS BLOOD HCO3 22.3 mmol/L (20-32); VENOUS BLOOD PCO2 41.2 mmHg (35-63); VENOUS BLOOD PH 7.35 (7.30-7.42)
[2017-06-24 09:57] LABS: FREE T3 3.75 pg/mL (2.77-5.27); FREE T4 (FREE THYROXINE) 1.85 ng/dL (0.78-2.19)
[2017-06-24 10:10] LABS: THYROID STIMULATING HORMONE 0.99 uIU/mL (0.47-4.68)
[2017-06-24] MEDS ORDERED: IPRATROPIUM/ALBUTEROL 0.5-2.5 MG/3 ML AMPUL NEB PRN (12:20)
[2017-06-24] MEDS ORDERED: ACETAMINOPHEN 325 MG TABLET PO PRN (12:26)
[2017-06-24] MEDS ORDERED: GLUCAGON,HUMAN RECOMB 1 MG INJ IM PRN (12:29)
[2017-06-24] MEDS ORDERED: DEXTROSE 50%-WATER 25 GM/50 ML DISP.SYRIN IV PRN ×2 (12:29)
[2017-06-24] MEDS ORDERED: DEXTROSE 40% GEL 15 GM TUBE PO PRN ×2 (12:29)
[2017-06-24] MEDS ORDERED: ONDANSETRON HCL INJ/PF 4 MG/2 ML SDV IV PRN (12:30)
--- NOTE | 2017-06-24 13:01 | PDOC H&P ---
History of Present Illness Admission Date/PCP: 06/24/17 11:35 ROSANNE PADILLA DO Patient complains of: Low blood sugar, hypothermia, nausea and vomiting History of Present Illness: ULAN MYRICK is a 86 year old female with a past medical history of dementia, coronary artery disease, DE, hyperlipidemia, hypertension, CVA with left-sided weakness, insulin-dependent diabetes mellitus, osteoarthritis, anxiety, bipolar , depression and schizophrenia who presented to the emergency department today via EMS for a report of increased sedation noted by [facility] staff. 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 Her blood sugar was checked and found to be in the low 20s. Upon arrival to the emergency department her BGL remained in the 20s, rectal temperature was found to be 95.1, she was dictated next with a rate of 22, and decreased mental status. The patient was noted to be covered and emesis, however, this was not witnessed by [facility] staff or EMS personnel. Presumably the patient vomited overnight. Evaluation by the emergency department also revealed leukocytosis at 13.9, anemia with a hemoglobin of 10.7, platelet count of 453, chemistry with a slightly low CO2 at 20, elevated BUN to 36, glucose elevated to 236 following correction, and a lactic acid level of 3.5. Thyroid function, urinalysis, and chest x-ray were unremarkable. The patient's only complaint at this time is bilateral leg pain. She is referred to the hospitalist service for admission and management of SIRS. Past Medical History Cardiac Medical History: Reports: Coronary Artery Disease, Myocardial Infarction , Hyperlipidema, Hypertension Denies: Heart Murmur Pulmonary Medical History: Reports: Pneumonia Denies: Respiratory Failure, Sleep Apnea, Tuberculosis Neurological Medical History: Reports: Seizures - "long time ago" Endocrine Medical History: Reports: Diabetes Mellitus Type 2 - insulin dependant Renal/ Medical History: Malignancy Medical History: GI Medical History: Denies: Hiatal Hernia Musculoskeltal Medical History: Reports: Arthritis - osteo Psychiatric Medical History: Reports: Bipolar Disorder, Dementia, Depression Hematology: Denies: Anemia, Hemophilia, Sickle Cell Disease Infectious Medical History: Past Surgical History Past Surgical History: Reports: Appendectomy, Cardiac Catheterization, Cholecystectomy, Hysterectomy, Orthopedic Surgery - back surgery x 7, Tonsillectomy Denies: Amputation Social History Information Source: Patient, Emergency Med Personnel, [facility] Lives with: Custodial Smoking Status: Never Smoker Frequency of Alcohol Use: None Hx Recreational Drug Use: No Hx Prescription Drug Abuse: No - Advance Directive Resuscitation Status: Do Not Intubate Surrogate healthcare decision maker:: The patient's granddaughter, Ruby Mcgrath. Family History Family History: Reviewed & Not Pertinent, Other Family History: Unable to be obtained secondary to dementia Parental Family History Reviewed: No - Pt can't recall; dementia Children Family History Reviewed: No Sibling(s) Family History Reviewed.: No Medication/Allergy Allergies/Adverse Reactions: celecoxib [From Celebrex] Allergy (Intermediate, Verified 05/07/17 02:54) gabapentin [From Neurontin] Allergy (Intermediate, Verified 05/07/17 02:54) lamotrigine [From Lamictal] Allergy (Intermediate, Verified 05/07/17 02:54) meloxicam [From Mobic] Allergy (Intermediate, Verified 05/07/17 02:54) thiothixene [From Navane] Allergy (Intermediate, Verified 05/07/17 02:54) amoxicillin trihydrate [From Augmentin] Allergy (Unknown, Verified 05/07/17 02: 54) citalopram hydrobromide [From Celexa] Allergy (Unknown, Verified 05/07/17 02:54) codeine [Codeine] Allergy (Unknown, Verified 05/07/17 02:54) divalproex sodium [From Depakote] Allergy (Unknown, Verified 05/07/17 02:54) hydrocodone bitartrate [From Lorcet 10/650] Allergy (Unknown, Verified 05/07/17 02:54) methocarbamol [From Robaxin] Allergy (Unknown, Verified 05/07/17 02:54) nabumetone [From Relafen] Allergy (Unknown, Verified 05/07/17 02:54) oxycodone [Oxycodone] Allergy (Unknown, Verified 05/07/17 02:54) Sulfa (Sulfonamide Antibiotics) Allergy (Unknown, Verified 05/07/17 02:54) terazosin [Terazosin] Allergy (Unknown, Verified 05/07/17 02:54) tramadol HCl [From Ultram] Allergy (Unknown, Verified 05/07/17 02:54) Review of Systems Constitutional: PRESENT: fatigue. ABSENT: chills, fever(s), headache(s), weight gain, weight loss Eyes: ABSENT: visual disturbances Ears: ABSENT: hearing changes Nose, Mouth, and Throat: ABSENT: headache(s), mouth pain, sore throat Cardiovascular: ABSENT: chest pain, dyspnea on exertion, edema, orthropnea, palpitations Respiratory: ABSENT: cough, hemoptysis Gastrointestinal: PRESENT: as per HPI. ABSENT: abdominal pain, constipation, diarrhea, hematemesis, hematochezia, nausea, vomiting Genitourinary: ABSENT: difficulty urinating, dysuria, hematuria Musculoskeletal: PRESENT: other - Bilateral leg pain. ABSENT: joint swelling Integumentary: ABSENT: rash, wounds Neurological: ABSENT: abnormal gait, abnormal speech, confusion, dizziness, focal weakness, syncope Psychiatric: ABSENT: anxiety, depression, homidical ideation, suicidal ideation Endocrine: ABSENT: cold intolerance, heat intolerance, polydipsia, polyuria Hematologic/Lymphatic: ABSENT: easy bleeding, easy bruising Physical Exam Vital Signs: Temp Pulse Resp BP Pulse Ox 99.2 F 21 H 113/51 L 98 06/24/17 11:01 06/24/17 11:01 06/24/17 11:01 06/24/17 11:01 General appearance: PRESENT: no acute distress, disheveled, obese, well- developed, well-nourished Head exam: PRESENT: atraumatic, normocephalic Eye exam: PRESENT: conjunctiva pink, EOMI, PERRLA. ABSENT: scleral icterus Ear exam: PRESENT: normal external ear exam Mouth exam: PRESENT: dry mucosa, tongue midline Teeth exam: PRESENT: edentulous Neck exam: ABSENT: carotid bruit, JVD, lymphadenopathy, thyromegaly Respiratory exam: PRESENT: rhonchi - Bibasilar, right greater than left, symmetrical, unlabored, wheezes - Occasional end expiratory wheeze. ABSENT: rales Cardiovascular exam: PRESENT: RRR, +S1, +S2. ABSENT: diastolic murmur, rubs Pulses: PRESENT: normal dorsalis pedis pul Vascular exam: PRESENT: normal capillary refill GI/Abdominal exam: PRESENT: normal bowel sounds, soft. ABSENT: distended, guarding, mass, organolmegaly, rebound, tenderness Rectal exam: PRESENT: deferred Extremities exam: PRESENT: full ROM. ABSENT: calf tenderness, clubbing, pedal edema Neurological exam: PRESENT: alert, awake, oriented to person, oriented to place , CN II-XII grossly intact, other - Forgetful and repetitive. ABSENT: oriented to time, oriented to situation, motor sensory deficit Psychiatric exam: PRESENT: appropriate affect, normal mood. ABSENT: homicidal ideation, suicidal ideation Skin exam: PRESENT: dry, intact, warm, other - Healed sacral ulcer (POA). ABSENT: cyanosis, rash Results Impressions: Acute Abdomen Series 06/24/17 06:51 IMPRESSION: Diffuse gaseous distention of the stomach out of proportion to colon and small bowel. Question gastroparesis versus gastric outlet compromise from stricture or ulcer. Assessment & Plan - Diagnosis (1) SIRS (systemic inflammatory response syndrome) Is this a current diagnosis for this admission?: Yes Plan: SIRS present on admission evidenced by acute encephalopathy, rectal temperature of 95.1, tachypnea with respiratory rate of 22, and lactic acid of 3.5. The patient was noted to have a glucose of 24 this morning which was corrected by EMS personnel. She is noted to have emesis in her hair, across her face, and her clothing from unwitnessed vomiting episode. This raises concern of potential aspiration event during hypoglycemia. Blood and urine cultures are pending. The patient will be admitted to the medical floor on continuous cardiac telemetry. She has received a 1 L IV normal saline bolus by emergency department, will continue maintenance IV fluids. She is empirically placed on cefepime, Levaquin, and metronidazole for coverage of pneumonia at risk for Pseudomonas exposure (patient is a [facility]term resident at [facility]) and aspiration. We will repeat chest x-ray in the morning. Supplemental oxygen as needed to maintain oxygen saturations greater than 90% Mucinex twice daily. Duo nebs as needed. Consider need for systemic glucocorticosteroids. Incentive spirometry to bedside. (2) Nausea and vomiting Is this a current diagnosis for this admission?: Yes Plan: Unwitnessed vomiting episode; patient was found to have vomitus in her hair, face and clothing. Acute abdominal series showed diffuse gaseous distention of the stomach out of proportion to the colon and small bowel. Of note, the patient was here last week for a report of fever, abdominal pain, nausea and vomiting. At that time a noncontrasted CT of the abdomen mistreated no acute abnormalities. We will follow up with oral and IV contrasted CT of the abdomen and pelvis to evaluate for gastric obstruction. Antiemetics as needed. Aspiration precautions. (3) Leukocytosis Qualifiers: Leukocytosis type: bandemia Qualified Code(s): D72.825 - Bandemia Is this a current diagnosis for this admission?: Yes Plan: Secondary to SIRS (possible pneumonia versus occult bacteremia). Cultures and antibiotics as above. (4) Chronic kidney disease, stage III (moderate) Is this a current diagnosis for this admission?: Yes Plan: Creatinine is noted to be 1.23 upon admission. The patient will undergo a oral and IV contrasted abdominal and pelvic CT today. She is receiving maintenance IV fluids. Otherwise, will avoid all nephrotoxic medications. We will continue to trend with daily chemistry. (5) Diabetes mellitus type 2 in obese Is this a current diagnosis for this admission?: Yes Plan: The patient is initially placed on a clear liquid diet. Accu-Cheks before meals and at bedtime with Humalog for sliding scale coverage. Hypoglycemia protocols in place. (6) GERD (gastroesophageal reflux disease) Is this a current diagnosis for this admission?: Yes Plan: Continue PPI. (7) Hypoglycemia Is this a current diagnosis for this admission?: Yes Plan: Noted by [facility] staff and EMS personnel; subsequently corrected. We will continue to monitor blood glucose as above; hypoglycemia protocols in place. (8) Hypothermia Qualifiers: Encounter type: initial encounter Qualified Code(s): T68.XXXA - Hypothermia , initial encounter Is this a current diagnosis for this admission?: Yes Plan: Secondary to SIRS. Plan as above. Bearhugger as needed to maintain appropriate temperature range. (9) Lactic acidosis Is this a current diagnosis for this admission?: Yes Plan: Trending down; secondary to SIRS. (10) Dementia Is this a current diagnosis for this admission?: Yes Plan: We will review and resume home medications once reconciled by pharmacy. Supportive care. Provide for patient safety; fall and aspiration precautions. - Time Time Spent: 50 to 70 Minutes Medications reviewed and adjusted accordingly: Yes - Inpatient Certification Based on my medical assessment, after consideration of the patient's comorbidities, presenting symptoms, or acuity I expect that the services needed warrant INPATIENT care.: Yes I certify that my determination is in accordance with my understanding of Medicare's requirements for reasonable and necessary INPATIENT services [42 CFR 412.3e].: Yes Medical Necessity: Significant Comorbidiites Make Outpatient Treatment Too Risky , Need Close Monitoring Due to Risk of Patient Decompensation, Need For IV Fluids, Need for IV Antibiotics
--- NOTE | 2017-06-24 13:01 | EKG REPORT ---
SEVERITY:- ABNORMAL ECG - SINUS RHYTHM WITH FIRST DEGREE AVB PROBABLE LEFT ATRIAL ABNORMALITY LEFT VENTRICULAR HYPERTROPHY BORDERLINE PROLONGED QT INTERVAL : Confirmed by: Avinash Galeas MD 24-Jun-2017 13:00:23
--- NOTE | 2017-06-24 16:25 | RADIOLOGY REPORT (SQ) ---
EXAM DESCRIPTION: CT ABD/PELVIS WITH IV ORAL COMPLETED DATE/TIME: 06/24/2017 3:45 pm REASON FOR STUDY: SIRS, N/V, here last week with abd pain COMPARISON: Abdominal films 06/24/2017 CT abdomen pelvis 06/20/2017, 04/11/2011 TECHNIQUE: CT scan of the abdomen and pelvis performed with intravenous and oral contrast using lalitha penny scanning technique with dynamic intravenous contrast injection. Images reviewed with lung, soft t issue, and bone windows. Reconstructed coronal and sagittal MPR images reviewed. Delayed images for e valuation of the urinary system also acquired. All images stored on PACS. All CT scanners at this facility use dose modulation, iterative reconstruction, and/or weight based d osing when appropriate to reduce radiation dose to as low as reasonably achievable (ALARA). [facility]: Dose Right [facility]: CareDose [facility]: Dose Right [facility]: Teradose 4D [facility]: Shape Collage CONTRAST TYPE AND DOSE: contrast/concentration: Isovue 370.00 mg/ml; Total Contrast Delivered: 82.0 ml; Total Saline Delivered: 68.1 ml RENAL FUNCTION: Creatinine 1.2 RADIATION DOSE: CT Rad equipment meets quality standard of care and radiation dose reduction techniq ues were employed. CTDIvol: 11.9 - 16.5 mGy. DLP: 1539 mGy-cm.. LIMITATIONS: None. FINDINGS: The right breast is enlarged, with skin thickening and diffuse edema or cellulitis with st randing throughout the soft tissues down to the right flank. Findings are worrisome for mastitis. I nflammatory breast cancer could cause this appearance. This report was discussed with Becki Matta NP. LOWER CHEST: Lung bases are clear. Calcified mitral annulus. Moderate coronary artery and aortic va lve calcification. LIVER: Normal size. No masses. No dilated ducts. SPLEEN: Normal size. 2 cm nodule in the spleen with arterial vascular enhancement, this is smaller t hernandez in 2011 for it measured 3 cm in size. This is of doubtful clinical significance. PANCREAS: No masses. No significant calcifications. No adjacent inflammation or peripancreatic fluid collections. Pancreatic duct not dilated. GALLBLADDER: Surgically absent ADRENAL GLANDS: No significant masses or asymmetry. RIGHT KIDNEY AND URETER: No solid masses. No significant calcification. No hydronephrosis or hydroure ter. LEFT KIDNEY AND URETER: No solid masses. No significant calcification. No hydronephrosis or hydrouret er. AORTA AND VESSELS: No aneurysm. No dissection. Renal arteries, SMA, celiac without stenosis. RETROPERITONEUM: No retroperitoneal adenopathy, hemorrhage or masses. BOWEL AND PERITONEAL CAVITY: Patient drank oral contrast. No evidence of gastric outlet obstruction, small bowel obstruction or colon in obstruction. Moderate stool in the rectosigmoid. No free intra peritoneal air or fluid. APPENDIX: Not identified PELVIS: Post hysterectomy. Barker catheter drains the bladder. No masses or adenopathy. No free pel mary fluid. ABDOMINAL WALL: Tiny fat containing umbilical hernia BONES: Lower lumbar multilevel fusion. There is a chronic appearing L5 compression deformity with fl uid in the fracture line paralleling the upper endplate of L5. This is best shown on sagittal recons truction images 52 through 59. This is unchanged from 06/20/2017 but new compared to 2012 OTHER: No other significant finding. IMPRESSION: Right-sided mastitis. Inflammatory breast cancer could mimic this appearance. 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
[2017-06-24] MEDS: HEPARIN SOD (PORCINE) 5,000 UNIT/ML 1 ML SYRINGE SUBCUT SCH ×2 (17:14→22:33)
[2017-06-24] MEDS ORDERED: METRONIDAZOLE 500 MG/NS RTU 100 ML IV SCH (18:00)
[2017-06-24] MEDS ORDERED: CEFEPIME 2 GM/D5W RTU 2 GM/50 ML RTUPB IV SCH (22:00)
[2017-06-24] MEDS ORDERED: CEFEPIME HCL 2 GM in DEXTROSE 5%-WATER 100 ML IV SCH (22:00)
[2017-06-24] MEDS: GUAIFENESIN 600 MG TABLET.SA PO SCH (22:24)
[2017-06-24] MEDS: FAMOTIDINE 20 MG TABLET PO SCH (22:24)
[2017-06-24] MEDS: NORMAL SALINE 1000 ML 1,000 ML IV PRN (22:31)
[2017-06-25 04:47] LABS: ABSOLUTE BASOPHILS # (AUTO) 0.1 10^3/uL (0.0-0.2); ABSOLUTE EOSINOPHILS # (AUTO) 0.1 10^3/uL (0.0-0.6); ABSOLUTE LYMPHOCYTES (AUTO) 1.9 10^3/uL (0.5-4.7); ABSOLUTE MONOCYTES (AUTO) 0.5 10^3/uL (0.1-1.4); ABSOLUTE NEUT (AUTO) 9.9 10^3/uL (1.7-8.2); BASOPHILS % (AUTO) 0.5 % (0-2); EOSINOPHILS % (AUTO) 0.8 % (0-6); HEMATOCRIT 28.3 % (36.0-47.0); HEMOGLOBIN 9.4 g/dL (12.0-15.5); LYMPHOCYTES % (AUTO) 15.1 % (13-45); MEAN CORPUSCULAR HGB CONC 33.2 g/dL (32.0-36.0); MEAN CORPUSCULAR VOLUME 87 fl (80-97); MONOCYTES % (AUTO) 4.4 % (3-13); PLATELET COUNT 344 10^3/uL (150-450); RED BLOOD COUNT 3.25 10^6/uL (3.72-5.28); RED CELL DISTRIBUTION WIDTH 13.2 % (11.5-14.0); SEGMENTED NEUTROPHILS % (AUTO) 79.2 % (42-78); TOTAL CELLS COUNTED % (AUTO) 100 %; WHITE BLOOD COUNT 12.5 10^3/uL (4.0-10.5)
[2017-06-25 05:10] LABS: ANION GAP 7 (5-19); BLOOD UREA NITROGEN 22 mg/dL (7-20); CARBON DIOXIDE 27 mmol/L (22-30); CHLORIDE 106 mmol/L (98-107); GLUCOSE 154 mg/dL (75-110); POTASSIUM 5.2 mmol/L (3.6-5.0); SODIUM 140.4 mmol/L (137-145)
[2017-06-25] MEDS: HEPARIN SOD (PORCINE) 5,000 UNIT/ML 1 ML SYRINGE SUBCUT SCH ×3 (06:24→23:03)
[2017-06-25] MEDS ORDERED: FUROSEMIDE 20 MG TABLET PO ONE (09:30)
[2017-06-25] MEDS: VALSARTAN 160 MG TABLET PO SCH (09:38)
[2017-06-25] MEDS: GUAIFENESIN 600 MG TABLET.SA PO SCH ×2 (09:38→23:04)
[2017-06-25] MEDS: AMLODIPINE BESYLATE 5 MG TABLET PO SCH ×2 (09:39→23:04)
[2017-06-25] MEDS: ASPIRIN 81 MG TABLET, CHEWABLE PO SCH (09:39)
[2017-06-25] MEDS: FAMOTIDINE 20 MG TABLET PO SCH ×2 (09:40→23:05)
[2017-06-25] MEDS: ISOSORBIDE MONONITRATE 30 MG TAB.ER.24H PO SCH (09:40)
[2017-06-25] MEDS: FENOFIBRATE NANOCRYSTALLIZED 48 MG TABLET PO SCH (09:43)
[2017-06-25] MEDS: NORMAL SALINE 1000 ML 1,000 ML IV PRN (09:44)
[2017-06-25] MEDS ORDERED: RANOLAZINE 500 MG TAB.SR.12H PO SCH (10:00)
[2017-06-25] MEDS ORDERED: CEFEPIME 2 GM/D5W RTU 2 GM/50 ML RTUPB IV SCH (10:00)
[2017-06-25] MEDS ORDERED: LEVOFLOXACIN 750 MG/D5W RTU 750 MG/150 ML RTUPB IV SCH ×2 (10:00)
--- NOTE | 2017-06-25 10:36 | RADIOLOGY REPORT (SQ) ---
EXAM DESCRIPTION: CHEST SINGLE VIEW COMPLETED DATE/TIME: 06/25/2017 8:51 am REASON FOR STUDY: SIRS, ? aspiration PNA s/p N V COMPARISON: None. 06/20/2017 NUMBER OF VIEWS: One view. TECHNIQUE: Single frontal radiographic image of the chest acquired. LIMITATIONS: None. FINDINGS: LUNGS AND PLEURA: Stable appearance. MEDIASTINUM AND HILAR STRUCTURES: Stable heart size and mediastinal structures. HEART AND VASCULAR STRUCTURES: Stable appearance. BONES: No acute findings. HARDWARE: None in the chest. OTHER: No other significant finding. IMPRESSION: Stable appearance of the chest. No evidence of aspiration pneumonia. TECHNICAL DOCUMENTATION: JOB ID: [id number] [employer]- All Rights Reserved Reading location - IP/workstation name: [email or web address]
[2017-06-25] MEDS: CEFEPIME HCL 2 GM in DEXTROSE 5%-WATER 100 ML IV SCH (12:27)
[2017-06-25] MEDS: INSULIN LISPRO 100 UNIT/ML 3 ML VIAL SUBCUT PRN ×3 (12:27→23:17)
--- NOTE | 2017-06-25 14:01 | RADIOLOGY REPORT (SQ) ---
EXAM DESCRIPTION: CT CHEST WITHOUT COMPLETED DATE/TIME: 06/25/2017 1:37 pm REASON FOR STUDY: rhonchi, wheezing, leukocytosis COMPARISON: 06/25/2017, 06/20/2017 Chest films TECHNIQUE: CT scan performed of the chest without intravenous contrast. Images reviewed with lung, soft tissue and bone windows. Reconstructed coronal and sagittal MPR images reviewed. All images st ored on PACS. All CT scanners at this facility use dose modulation, iterative reconstruction, and/or weight based d osing when appropriate to reduce radiation dose to as low as reasonably achievable (ALARA). [facility]: Dose Right [facility]: CareDose [facility]: Dose Right [facility]: Teradose 4D [facility]: Datam RADIATION DOSE: CT Rad equipment meets quality standard of care and radiation dose reduction techniq ues were employed. CTDIvol: 9.3 mGy. DLP: 344 mGy-cm. mGy. LIMITATIONS: No technical limitations. FINDINGS: LUNGS AND PLEURA: No masses, infiltrates, pneumothorax. No pleural effusions, calcificati ons. HILAR AND MEDIASTINAL STRUCTURES: No identified masses or abnormal nodes. No obvious aneurysm. HEART AND VASCULAR STRUCTURES: No aneurysm. No pericardial effusion. Calcified aortic valve, heavil y calcified coronary arteries. UPPER ABDOMEN: No significant findings. Limited exam. THYROID AND OTHER SOFT TISSUES: No masses. No adenopathy. BONES: No significant finding. HARDWARE: None in the chest. OTHER: There is a tiny air bubble in vascular structures right breast/infraclavicular region. This c ould be iatrogenic air from right-sided IV IMPRESSION: No focal consolidation worrisome for pneumonia. TECHNICAL DOCUMENTATION: JOB ID: [id number] Quality ID # [id number]: Final reports with documentation of one or more dose reduction techniques (e.g., Au tomated exposure control, adjustment of the mA and/or kV according to patient size, use of iterative reconstruction technique) 2010 [employer]- All Rights Reserved Reading location - IP/workstation name: [email or web address]
[2017-06-25] MEDS ORDERED: NORMAL SALINE 1000 ML 1,000 ML IV PRN (14:06)
[2017-06-25] MEDS ORDERED: HYDROCODONE/ACETAMINOPHEN 5-325 MG TABLET PO PRN (14:08)
--- NOTE | 2017-06-25 14:39 | PDOC PROGRESS REPORT ---
Subjective Progress Note for:: 06/25/17 Subjective:: Dementia, coronary artery disease,The patient is an 86-year-old female with a past medical history significant for GA, hyperlipidemia, hypertension, CVA with left-sided weakness, insulin-dependent diabetes mellitus, arthritis, rashes, anxiety, bipolar, depression and schizophrenia who was admitted yesterday for hypoglycemia and SIRS. The patient was seen on morning rounds. She is found resting in bed comfortably on room air while eating her breakfast. She states that she is feeling much better today. She denies abdominal pain, nausea and vomiting. She has been tolerating her meals without difficulty. Blood sugars were slightly elevated overnight but no episodes of hypoglycemia. The patient denies shortness of breath or cough, however, is noted to have audible wheezing. Her only complaint is bilateral leg pain; today she states the pain begins in her knees and radiates downwards which is different from yesterday which was primarily in the hips and thighs. Otherwise, she has no questions or concerns. Reason For Visit: SIRS, HYPOGLYCEMIA, HYPOTHERMIA, NAUSEA AND Physical Exam Vital Signs: Temp Pulse Resp BP Pulse Ox 98.8 F 80 16 155/69 H 97 06/25/17 07:56 06/25/17 10:13 06/25/17 10:13 06/25/17 07:56 06/25/17 10:13 Intake & Output 06/24/17 06/25/17 06/26/17 06:59 06:59 06:59 Intake Total 909 Balance 909 Weight 71.4 kg General appearance: PRESENT: no acute distress, cooperative, obese, well- developed, well-nourished Head exam: PRESENT: atraumatic, normocephalic Eye exam: PRESENT: conjunctiva pink, EOMI, PERRLA. ABSENT: scleral icterus Ear exam: PRESENT: normal external ear exam Mouth exam: PRESENT: moist, tongue midline Neck exam: ABSENT: carotid bruit, JVD, lymphadenopathy, thyromegaly Respiratory exam: PRESENT: rhonchi, symmetrical, unlabored, wheezes - End expiratory wheezing. ABSENT: rales Cardiovascular exam: PRESENT: RRR, +S1, +S2. ABSENT: diastolic murmur, rubs, systolic murmur Pulses: PRESENT: normal dorsalis pedis pul Vascular exam: PRESENT: normal capillary refill GI/Abdominal exam: PRESENT: normal bowel sounds, soft. ABSENT: distended, guarding, mass, organolmegaly, rebound, tenderness Rectal exam: PRESENT: deferred Extremities exam: PRESENT: full ROM, tenderness - BLE tenderness with movement. ABSENT: calf tenderness, clubbing, pedal edema Neurological exam: PRESENT: alert, awake, oriented to person, oriented to place , oriented to time, oriented to situation, CN II-XII grossly intact. ABSENT: motor sensory deficit Psychiatric exam: PRESENT: appropriate affect, normal mood. ABSENT: homicidal ideation, suicidal ideation Skin exam: PRESENT: dry, intact, warm. ABSENT: cyanosis, rash Results Laboratory Results: 06/25/17 04:18 04 04:18 06/25/17 06/25/17 04:18 04:18 WBC 12.5 H RBC 3.25 L Hgb 9.4 L Hct 28.3 L MCV 87 MCH 29.0 MCHC 33.2 RDW 13.2 Plt Count 344 Seg Neutrophils % 79.2 H Lymphocytes % 15.1 Monocytes % 4.4 Eosinophils % 0.8 Basophils % 0.5 Absolute Neutrophils 9.9 H Absolute Lymphocytes 1.9 Absolute Monocytes 0.5 Absolute Eosinophils 0.1 Absolute Basophils 0.1 Sodium 140.4 Potassium 5.2 H Chloride 106 Carbon Dioxide 27 Anion Gap 7 BUN 22 H Creatinine 1.07 Est GFR ( Amer) 59 L Est GFR (Non-Af Amer) 49 L Glucose 154 H Calcium 9.0 06/25/17 04:18 NT-Pro-B Natriuret Pep 774 H Impressions: Abdomen/Pelvis CT 06/24/17 00:00 IMPRESSION: Right-sided mastitis. Inflammatory breast cancer could mimic this appearance. No CT evidence of bowel obstruction or free intraperitoneal air or fluid Probable chronic compression deformity at L5 with pseudoarthrosis Acute Abdomen Series 06/24/17 06:51 IMPRESSION: Diffuse gaseous distention of the stomach out of proportion to colon and small bowel. Question gastroparesis versus gastric outlet compromise from stricture or ulcer. Chest CT 06/25/17 00:00 IMPRESSION: No focal consolidation worrisome for pneumonia. Chest X-Ray 06/25/17 06:00 IMPRESSION: Stable appearance of the chest. No evidence of aspiration pneumonia. Assessment & Plan - Diagnosis (1) SIRS (systemic inflammatory response syndrome) Is this a current diagnosis for this admission?: Yes Plan: SIRS present on admission evidenced by acute encephalopathy, rectal temperature of 95.1, tachypnea with respiratory rate of 22, and lactic acid of 3.5. Blood cultures: No growth to date Urine culture: No growth to date Repeat chest x-ray and follow-up noncontrasted CT of the chest are negative for pneumonia. The patient will be admitted to the medical floor on continuous cardiac telemetry. Will continue IV fluids at KVO only as I am concerned the patient may be developing some fluid volume overload and she is a very difficult IV stick. There was some initial concern for occult bacteremia given her initial presentation; therefore she wasempirically placed on cefepime, Levaquin for coverage of pneumonia at risk for Pseudomonas exposure (patient is a long-term resident at care home). Supplemental oxygen as needed to maintain oxygen saturations greater than 90%; patient is currently maintaining oxygen saturations on room air. Mucinex twice daily. Duo nebs as needed. Consider need for systemic glucocorticosteroids. Incentive spirometry to bedside. (2) Nausea and vomiting Is this a current diagnosis for this admission?: Yes Plan: Resolved. Unwitnessed vomiting episode; patient was found to have vomitus in her hair, face and clothing. Acute abdominal series showed diffuse gaseous distention of the stomach out of proportion to the colon and small bowel. Of note, the patient was here last week for a report of fever, abdominal pain, nausea and vomiting. At that time a noncontrasted CT of the abdomen mistreated no acute abnormalities. CT of the abdomen and pelvis with oral and IV contrast was negative for obstruction. Antiemetics as needed. Aspiration precautions. (3) Leukocytosis Qualifiers: Leukocytosis type: bandemia Qualified Code(s): D72.825 - Bandemia Is this a current diagnosis for this admission?: Yes Plan: Trending down; secondary to SIRS (possible pneumonia versus occult bacteremia versus inflammatory reaction given the patient's significant hypoglycemia). Cultures and antibiotics as above. (4) Chronic kidney disease, stage III (moderate) Is this a current diagnosis for this admission?: Yes Plan: Creatinine is stable. Will avoid all nephrotoxic medications. We will continue to trend with daily chemistry. (5) Diabetes mellitus type 2 in obese Is this a current diagnosis for this admission?: Yes Plan: Hemoglobin A1c is 8.3% which is at goal given the patient's age and life expectancy. Accu-Cheks before meals and at bedtime with Humalog for sliding scale coverage. We will resume low-dose Levemir today at 10 units daily. Hypoglycemia protocols in place. (6) GERD (gastroesophageal reflux disease) Is this a current diagnosis for this admission?: Yes Plan: Continue PPI. (7) Hypoglycemia Is this a current diagnosis for this admission?: Yes Plan: Prior to admission; Noted by care home staff and EMS personnel; subsequently corrected. We will continue to monitor blood glucose as above; hypoglycemia protocols in place. (8) Hypothermia Qualifiers: Encounter type: initial encounter Qualified Code(s): T68.XXXA - Hypothermia , initial encounter Is this a current diagnosis for this admission?: Yes Plan: Resolved. Secondary to SIRS. Plan as above. (9) Lactic acidosis Is this a current diagnosis for this admission?: Yes Plan: Resolved; secondary to SIRS vs profound hypoglycemia. (10) Dementia Is this a current diagnosis for this admission?: Yes Plan: We will review and resume home medications once reconciled by pharmacy. Supportive care. Provide for patient safety; fall and aspiration precautions. (11) IV infiltrate Is this a current diagnosis for this admission?: Yes Plan: Contrasted CT of the abdomen and pelvis revealed right breast enlargement with skin thickening and diffuse edema or cellulitis with stranding throughout the soft tissues and down the right flank. These findings were worrisome for mastitis versus inflammatory breast cancer. Receiving report from Dr. Schreiber, the patient was reexamined. She was found to have had an infiltrated IV that was established into her right superficial breast tissue. She had significant amount of IV fluid infiltrate to the right lateral breast and right flank. The area was nontender. No errythema. Breast exam was limited secondary to infiltrate, however, no obvious lumps or masses are noted. There is no nipple discharge. The skin is intact. Provide for comfort; Tylenol as needed for pain. May apply warm heat. (12) Bilateral leg pain Is this a current diagnosis for this admission?: Yes Plan: The patient reports bilateral leg pain that is migratory and worsened with movements. She is noted to have a probable chronic L5 compression deformity that may be the source of her discomfort. The patient denies recent fall or injury. There is no obvious deformity. We will provide hydrocodone as needed for pain. We will ask physical therapy and occupational therapy to meet with the patient. - Time Time Spent with patient: 25-34 minutes Medications reviewed and adjusted accordingly: Yes Anticipated discharge: SNF - nursing home resident Within: within 48 hours - Inpatient Certification Based on my medical assessment, after consideration of the patient's comorbidities, presenting symptoms, or acuity I expect that the services needed warrant INPATIENT care.: Yes I certify that my determination is in accordance with my understanding of Medicare's requirements for reasonable and necessary INPATIENT services [42 CFR 412.3e].: Yes Medical Necessity: Need for IV Antibiotics
[2017-06-25] MEDS: FERROUS SULFATE 325 MG TABLET PO SCH (17:48)
[2017-06-25] MEDS: INSULIN DETEMIR 100 UNIT/ML 3 ML PEN SUBCUT SCH (17:48)
[2017-06-25] MEDS ORDERED: (PENDING PHARMACY ID) (Rosuvastatin Calcium [Crestor 20 Mg Tablet] 20 MG) PO SCH (22:00)
[2017-06-25] MEDS: ATORVASTATIN CALCIUM 40 MG TABLET PO SCH (23:03)
[2017-06-26 04:34] LABS: ABSOLUTE BASOPHILS # (AUTO) 0.1 10^3/uL (0.0-0.2); ABSOLUTE EOSINOPHILS # (AUTO) 0.1 10^3/uL (0.0-0.6); ABSOLUTE MONOCYTES (AUTO) 0.9 10^3/uL (0.1-1.4); ABSOLUTE NEUT (AUTO) 8.3 10^3/uL (1.7-8.2); BASOPHILS % (AUTO) 0.6 % (0-2); EOSINOPHILS % (AUTO) 0.7 % (0-6); HEMATOCRIT 28.3 % (36.0-47.0); HEMOGLOBIN 9.6 g/dL (12.0-15.5); LYMPHOCYTES % (AUTO) 10.1 % (13-45); MEAN CORPUSCULAR HEMOGLOBIN 29.4 pg (27.0-33.4); MEAN CORPUSCULAR HGB CONC 33.8 g/dL (32.0-36.0); MEAN CORPUSCULAR VOLUME 87 fl (80-97); MONOCYTES % (AUTO) 8.4 % (3-13); PLATELET COUNT 330 10^3/uL (150-450); RED BLOOD COUNT 3.25 10^6/uL (3.72-5.28); RED CELL DISTRIBUTION WIDTH 13.4 % (11.5-14.0); SEGMENTED NEUTROPHILS % (AUTO) 80.2 % (42-78); TOTAL CELLS COUNTED % (AUTO) 100 %; WHITE BLOOD COUNT 10.4 10^3/uL (4.0-10.5)
[2017-06-26 05:00] LABS: ANION GAP 11 (5-19); BLOOD UREA NITROGEN 17 mg/dL (7-20); CALCIUM 9.3 mg/dL (8.4-10.2); CARBON DIOXIDE 25 mmol/L (22-30); CHLORIDE 105 mmol/L (98-107); GLUCOSE 122 mg/dL (75-110); POTASSIUM 4.9 mmol/L (3.6-5.0); SODIUM 141.1 mmol/L (137-145)
[2017-06-26] MEDS: HEPARIN SOD (PORCINE) 5,000 UNIT/ML 1 ML SYRINGE SUBCUT SCH ×3 (05:53→23:27)
[2017-06-26] MEDS: VALSARTAN 160 MG TABLET PO SCH (11:37)
--- NOTE | 2017-06-26 11:37 | RADIOLOGY REPORT (SQ) ---
EXAM DESCRIPTION: KNEE BILATERAL 1-2 VIEWS COMPLETED DATE/TIME: 06/26/2017 10:59 am REASON FOR STUDY: pain w/ extension. COMPARISON: 02/19/2015. NUMBER OF VIEWS: Two views. TECHNIQUE: AP and lateral radiographic images acquired of the right and left knee. LIMITATIONS: None. FINDINGS: RIGHT KNEE: MINERALIZATION: Normal. BONES: No acute fracture or dislocation. No worrisome bone lesions. Marked joint space narrowing with osteophytes in all 3 compartments. JOINT: No effusion. No chondrocalcinosis. OTHER: No other significant finding. LEFT KNEE: MINERALIZATION: Normal. BONES: Intact knee prosthesis. No acute fracture or dislocation. No worrisome bone lesions. No signi ficant osteophytes. JOINT: No effusion. No chondrocalcinosis. OTHER: No other significant finding. IMPRESSION: SEVERE DEGENERATIVE CHANGES IN THE RIGHT KNEE. INTACT LEFT KNEE PROSTHESIS. NO ACUTE F INDINGS. TECHNICAL DOCUMENTATION: JOB ID: [id number] [employer]- All Rights Reserved Reading location - IP/workstation name: [email or web address]
[2017-06-26] MEDS: ASPIRIN 81 MG TABLET, CHEWABLE PO SCH (11:38)
[2017-06-26] MEDS: ISOSORBIDE MONONITRATE 30 MG TAB.ER.24H PO SCH (11:38)
[2017-06-26] MEDS: FERROUS SULFATE 325 MG TABLET PO SCH ×2 (11:38→18:47)
[2017-06-26] MEDS: FENOFIBRATE NANOCRYSTALLIZED 48 MG TABLET PO SCH (11:38)
[2017-06-26] MEDS: GUAIFENESIN 600 MG TABLET.SA PO SCH ×2 (11:39→23:26)
[2017-06-26] MEDS: FAMOTIDINE 20 MG TABLET PO SCH ×2 (11:39→23:26)
[2017-06-26] MEDS: AMLODIPINE BESYLATE 5 MG TABLET PO SCH ×2 (11:39→23:26)
[2017-06-26] MEDS: CEFEPIME HCL 2 GM in DEXTROSE 5%-WATER 100 ML IV SCH (12:14)
--- NOTE | 2017-06-26 13:00 | PDOC PROGRESS REPORT ---
Subjective Progress Note for:: 06/26/17 Subjective:: Dementia, coronary artery disease,The patient is an 86-year-old female with a past medical history significant for DE, hyperlipidemia, hypertension, CVA with left-sided weakness, insulin-dependent diabetes mellitus, arthritis, rashes, anxiety, bipolar, depression and schizophrenia who was admitted yesterday for hypoglycemia and SIRS. The patient was seen on morning rounds. She is found resting in bed comfortably on room air while eating her breakfast. She states that she is feeling well today. She denies abdominal pain, nausea and vomiting. She has been tolerating her meals without difficulty. The patient denies shortness of breath or cough, but continues to have slight wheezing. Her only complaint remains bilateral leg pain beginning in her knees and radiating downwards. Otherwise, she has no questions or concerns. Reason For Visit: SIRS, HYPOGLYCEMIA, HYPOTHERMIA, NAUSEA AND Physical Exam Vital Signs: Temp Pulse Resp BP Pulse Ox 99.1 F 97 19 178/78 H 95 06/26/17 11:44 06/26/17 11:44 06/26/17 11:44 06/26/17 11:44 06/26/17 11:44 Intake & Output 06/25/17 06/26/17 06/27/17 06:59 06:59 06:59 Intake Total 909 3136 Output Total 3200 Balance 909 -64 Weight 71.4 kg 78.6 kg General appearance: PRESENT: no acute distress, cooperative, well-developed, well-nourished, other - Overweight Head exam: PRESENT: atraumatic, normocephalic Eye exam: PRESENT: conjunctiva pink, EOMI, PERRLA. ABSENT: scleral icterus Ear exam: PRESENT: normal external ear exam Mouth exam: PRESENT: moist, tongue midline Teeth exam: PRESENT: edentulous Neck exam: ABSENT: carotid bruit, JVD, lymphadenopathy, thyromegaly Respiratory exam: PRESENT: symmetrical, unlabored, wheezes, other - Room air. ABSENT: rales, rhonchi Cardiovascular exam: PRESENT: RRR, +S1, +S2. ABSENT: diastolic murmur, rubs, systolic murmur Pulses: PRESENT: normal dorsalis pedis pul Vascular exam: PRESENT: normal capillary refill GI/Abdominal exam: PRESENT: normal bowel sounds, soft. ABSENT: distended, guarding, mass, organolmegaly, rebound, tenderness Rectal exam: PRESENT: deferred Extremities exam: PRESENT: tenderness - BLE; not worsened with palpation. ABSENT: calf tenderness, clubbing, full ROM - BLE; limited secondary to pain, pedal edema, +1 edema, +2 edema Neurological exam: PRESENT: alert, awake, oriented to person, oriented to place , oriented to time, oriented to situation, CN II-XII grossly intact, other - Forgetful. ABSENT: motor sensory deficit Psychiatric exam: PRESENT: appropriate affect, normal mood. ABSENT: homicidal ideation, suicidal ideation Skin exam: PRESENT: dry, intact, warm. ABSENT: cyanosis, rash Results Laboratory Results: 06/26/17 03:55 06/26/17 03:55 06/26/17 06/26/17 03:55 03:55 WBC 10.4 RBC 3.25 L Hgb 9.6 L Hct 28.3 L MCV 87 MCH 29.4 MCHC 33.8 RDW 13.4 Plt Count 330 Seg Neutrophils % 80.2 H Lymphocytes % 10.1 L Monocytes % 8.4 Eosinophils % 0.7 Basophils % 0.6 Absolute Neutrophils 8.3 H Absolute Lymphocytes 1.0 Absolute Monocytes 0.9 Absolute Eosinophils 0.1 Absolute Basophils 0.1 Sodium 141.1 Potassium 4.9 Chloride 105 Carbon Dioxide 25 Anion Gap 11 BUN 17 Creatinine 1.03 Est GFR ( Amer) > 60 Est GFR (Non-Af Amer) 51 L Glucose 122 H Calcium 9.3 06/25/17 04:18 NT-Pro-B Natriuret Pep 774 H Impressions: Abdomen/Pelvis CT 06/24/17 00:00 IMPRESSION: Right-sided mastitis. Inflammatory breast cancer could mimic this appearance. No CT evidence of bowel obstruction or free intraperitoneal air or fluid Probable chronic compression deformity at L5 with pseudoarthrosis Acute Abdomen Series 06/24/17 06:51 IMPRESSION: Diffuse gaseous distention of the stomach out of proportion to colon and small bowel. Question gastroparesis versus gastric outlet compromise from stricture or ulcer. Chest CT 06/25/17 00:00 IMPRESSION: No focal consolidation worrisome for pneumonia. Chest X-Ray 06/25/17 06:00 IMPRESSION: Stable appearance of the chest. No evidence of aspiration pneumonia. Knee X-Ray 06/26/17 00:00 IMPRESSION: SEVERE DEGENERATIVE CHANGES IN THE RIGHT KNEE. INTACT LEFT KNEE PROSTHESIS. NO ACUTE FINDINGS. Assessment & Plan - Diagnosis (1) SIRS (systemic inflammatory response syndrome) Is this a current diagnosis for this admission?: Yes Plan: SIRS present on admission evidenced by acute encephalopathy, rectal temperature of 95.1, tachypnea with respiratory rate of 22, and lactic acid of 3.5. Blood cultures: No growth to date Urine culture: No growth to date Repeat chest x-ray and follow-up noncontrasted CT of the chest are negative for pneumonia. The patient will be admitted to the medical floor on continuous cardiac telemetry. Will continue IV fluids at KVO only as I am concerned the patient may be developing some fluid volume overload and she is a very difficult IV stick. There was some initial concern for occult bacteremia given her initial presentation; therefore she was empirically placed on cefepime, Levaquin for coverage of pneumonia at risk for Pseudomonas exposure ([facility] is a [facility] resident at [facility]). WBCs are trending down; however, pt continues to have a lox grade temperature. Supplemental oxygen as needed to maintain oxygen saturations greater than 90%; patient is currently maintaining oxygen saturations on room air. Mucinex twice daily. Duo nebs scheduled every 8 hours and as needed. We will add prednisone for wheezing. Incentive spirometry to bedside. (2) Leukocytosis Qualifiers: Leukocytosis type: bandemia Qualified Code(s): D72.825 - Bandemia Is this a current diagnosis for this admission?: Yes Plan: Trending down; secondary to SIRS (possible pneumonia versus occult bacteremia versus inflammatory reaction given the patient's significant hypoglycemia). Cultures and antibiotics as above. (3) Nausea and vomiting Is this a current diagnosis for this admission?: Yes Plan: Resolved. Unwitnessed vomiting episode; patient was found to have vomitus in her hair, face and clothing. Acute abdominal series showed diffuse gaseous distention of the stomach out of proportion to the colon and small bowel. Of note, the patient was here last week for a report of fever, abdominal pain, nausea and vomiting. At that time a noncontrasted CT of the abdomen mistreated no acute abnormalities. CT of the abdomen and pelvis with oral and IV contrast was negative for obstruction. Antiemetics as needed. Aspiration precautions. (4) Chronic kidney disease, stage III (moderate) Is this a current diagnosis for this admission?: Yes Plan: Creatinine is stable. Will avoid all nephrotoxic medications. We will continue to trend with daily chemistry. (5) Diabetes mellitus type 2 in obese Is this a current diagnosis for this admission?: Yes Plan: Hemoglobin A1c is 8.3% which is at goal given the patient's age and life expectancy. Accu-Cheks before meals and at bedtime with Humalog for sliding scale coverage. We will resume low-dose Levemir 10 units daily. Hypoglycemia protocols in place. (6) GERD (gastroesophageal reflux disease) Is this a current diagnosis for this admission?: Yes Plan: Continue PPI. (7) Hypoglycemia Is this a current diagnosis for this admission?: Yes Plan: Prior to admission; Noted by [facility] staff and EMS personnel; subsequently corrected. We will continue to monitor blood glucose as above; hypoglycemia protocols in place. (8) Hypothermia Qualifiers: Encounter type: initial encounter Qualified Code(s): T68.XXXA - Hypothermia , initial encounter Is this a current diagnosis for this admission?: Yes Plan: Resolved. Secondary to SIRS. Plan as above. (9) Lactic acidosis Is this a current diagnosis for this admission?: Yes Plan: Resolved; secondary to SIRS vs profound hypoglycemia. (10) Dementia Is this a current diagnosis for this admission?: Yes Plan: We will review and resume home medications once reconciled by pharmacy. Supportive care. Provide for patient safety; fall and aspiration precautions. (11) IV infiltrate Is this a current diagnosis for this admission?: Yes Plan: Contrasted CT of the abdomen and pelvis revealed right breast enlargement with skin thickening and diffuse edema or cellulitis with stranding throughout the soft tissues and down the right flank. These findings were worrisome for mastitis versus inflammatory breast cancer. After receiving report from Dr. Schreiber, the patient was reexamined. She was found to have had an infiltrated IV that was established into her right superficial breast vein. She had significant amount of IV fluid infiltrate to the right lateral breast and right flank. The area was nontender. No errythema. Breast exam was limited secondary to infiltrate, however, no obvious lumps or masses are noted. There is no nipple discharge. The skin is intact. Provide for comfort; Tylenol as needed for pain. May apply warm heat. (12) Bilateral leg pain Is this a current diagnosis for this admission?: Yes Plan: The patient reports bilateral leg pain that is migratory and worsened with movements. She is noted to have a probable chronic L5 compression deformity that may be the source of her discomfort. The patient denies recent fall or injury. There is no obvious deformity. Bilateral knee x-rays obtained today; severe degenerative changes to the right knee with an intact left knee prosthesis. We will add Lidoderm patch. We will provide hydrocodone as needed for pain. We will ask physical therapy and occupational therapy to meet with the patient. - Time Time Spent with patient: 25-34 minutes Medications reviewed and adjusted accordingly: Yes Anticipated discharge: SNF - [facility] resident Within: within 48 hours - Plan Summary Plan Summary: The patient was admitted with SIRS and hypoglycemic event. Her WBCs have trended down, however, the patient remains febrile. She continues on cefepime and Levaquin at this time. Cultures remain negative. Once the patient has been afebrile for 48 hours we will discontinue cefepime and transitioned to p.o. Levaquin. Ultimately, the patient will be discharged to [facility] where she is a long-term resident.
[2017-06-26] MEDS ORDERED: PREDNISONE 20 MG TABLET PO ONE (14:00)
[2017-06-26] MEDS ORDERED: LIDOCAINE 5% (700 MG) TRANSDERMAL ADH..PATCH TP ONE (14:00)
[2017-06-26] MEDS: INSULIN LISPRO 100 UNIT/ML 3 ML VIAL SUBCUT PRN ×3 (14:13→23:26)
[2017-06-26] MEDS: HYDRALAZINE HCL 50 MG TABLET PO SCH ×2 (14:14→23:27)
[2017-06-26] MEDS: IPRATROPIUM/ALBUTEROL 0.5-2.5 MG/3 ML AMPUL NEB SCH ×2 (15:53→23:52)
--- NOTE | 2017-06-26 17:09 | Physician Advisory Note ---
Physician Advisor ProgressNote .: Pursuant to the plan for [facility], I have reviewed the medical record for this patient. Physician Advisor Statement: Please clarify in documentation - do you mean that patient had: 1. "SIRS due to " [When stating "SIRS", we must always state the non- infectious cause, such as pancreatitis or severe ferguson. - If infection is suspected, state instead whether "sepsis, ...." is present or ruled out, as below, as coders cannot code "SIRS due to ___ infection ".] OR "possible sepsis, ruled out" OR "possible sepsis, suspect due to ____ [pneumonia, occult bacterial infection of undetermined origin, ...], evidenced by ....." OR "Bacteremia" (which by definition, at least in the coding world, means there is no sepsis present, but rather bacteria in bloodstream without causing overt s /s) 2. "Possible pneumonia, gram-____ type, present on admission, evidenced by ____ " [So far, what is documented is rhonchi R>L, wheezes, hypothermia, acute encephalopathy, tachypnea, leukocytosis, elevated lactate level.] - Need to clarify what leads to dx of pneumonia despite negative CT of chest - reasons CT likely negative. - Stating "coverage of pneumonia" requires women's activities adviser to query to find out if , indeed, there was a dx of pneumonia, or if it was covered for & then ruled out. OR "Possible pneumonia, ruled out", with alternate dx, such as aspiration pneumonitis, or acute bronchitis, or ... 3. Most likely cause of Acute encephalopathy - was it hypoglycemia in the 20s alone, or if there was likely an additional cause, what was it? (SIRS does not CAUSE encephalopathy, or hypothermia. Encephalopathy & hypothermia can be caused by infection or sepsis - or exposure, or ....) 4. "Chronic Left nondominant hemiparesis" Thanks! CK
[2017-06-26] MEDS: INSULIN DETEMIR 100 UNIT/ML 3 ML PEN SUBCUT SCH (18:47)
[2017-06-26] MEDS: ATORVASTATIN CALCIUM 40 MG TABLET PO SCH (23:26)
[2017-06-27] MEDS: HYDRALAZINE HCL 50 MG TABLET PO SCH ×2 (06:23→14:53)
[2017-06-27] MEDS: HEPARIN SOD (PORCINE) 5,000 UNIT/ML 1 ML SYRINGE SUBCUT SCH ×2 (06:23→14:52)
[2017-06-27 06:26] LABS: ABSOLUTE LYMPHOCYTES (AUTO) 0.7 10^3/uL (0.5-4.7); ABSOLUTE MONOCYTES (AUTO) 0.6 10^3/uL (0.1-1.4); ABSOLUTE NEUT (AUTO) 8.6 10^3/uL (1.7-8.2); BASOPHILS % (AUTO) 0.5 % (0-2); EOSINOPHILS % (AUTO) 0.1 % (0-6); HEMATOCRIT 30.4 % (36.0-47.0); HEMOGLOBIN 10.2 g/dL (12.0-15.5); LYMPHOCYTES % (AUTO) 7.2 % (13-45); MEAN CORPUSCULAR HEMOGLOBIN 29.1 pg (27.0-33.4); MEAN CORPUSCULAR HGB CONC 33.6 g/dL (32.0-36.0); MEAN CORPUSCULAR VOLUME 87 fl (80-97); MONOCYTES % (AUTO) 5.7 % (3-13); PLATELET COUNT 353 10^3/uL (150-450); RED BLOOD COUNT 3.51 10^6/uL (3.72-5.28); RED CELL DISTRIBUTION WIDTH 13.2 % (11.5-14.0); SEGMENTED NEUTROPHILS % (AUTO) 86.5 % (42-78); TOTAL CELLS COUNTED % (AUTO) 100 %
[2017-06-27 06:43] LABS: ANION GAP 14 (5-19); BLOOD UREA NITROGEN 23 mg/dL (7-20); CALCIUM 9.8 mg/dL (8.4-10.2); CARBON DIOXIDE 21 mmol/L (22-30); CHLORIDE 104 mmol/L (98-107); GLUCOSE 275 mg/dL (75-110); POTASSIUM 4.7 mmol/L (3.6-5.0); SODIUM 139.2 mmol/L (137-145)
[2017-06-27] MEDS: IPRATROPIUM/ALBUTEROL 0.5-2.5 MG/3 ML AMPUL NEB SCH ×2 (07:39→16:45)
[2017-06-27] MEDS ORDERED: PREDNISONE 20 MG TABLET PO SCH (10:00)
[2017-06-27] MEDS ORDERED: LIDOCAINE 5% (700 MG) TRANSDERMAL ADH..PATCH TP SCH (10:00)
[2017-06-27] MEDS ORDERED: LEVOFLOXACIN 750 MG TABLET PO SCH (10:00)
[2017-06-27] MEDS: VALSARTAN 160 MG TABLET PO SCH (11:02)
[2017-06-27] MEDS: ASPIRIN 81 MG TABLET, CHEWABLE PO SCH (11:03)
[2017-06-27] MEDS: FENOFIBRATE NANOCRYSTALLIZED 48 MG TABLET PO SCH (11:03)
[2017-06-27] MEDS: FAMOTIDINE 20 MG TABLET PO SCH (11:03)
[2017-06-27] MEDS: FERROUS SULFATE 325 MG TABLET PO SCH ×2 (11:03→17:54)
[2017-06-27] MEDS: AMLODIPINE BESYLATE 5 MG TABLET PO SCH (11:03)
[2017-06-27] MEDS: GUAIFENESIN 600 MG TABLET.SA PO SCH (11:04)
[2017-06-27] MEDS: ISOSORBIDE MONONITRATE 30 MG TAB.ER.24H PO SCH (11:04)
--- NOTE | 2017-06-27 14:09 | PDOC TRANSFER SUMMARY ---
General - Admit/Disc Date/PCP Admission Date/Primary Care Provider: 06/24/17 11:35 ROSANNE PADILLA, Discharge Date: 06/27/17 - Discharge Diagnosis (1) Sepsis Is this a current diagnosis for this admission?: Yes Summary: Sepsis, suspect due to occult bacterial infection, present on admission, evidenced by rhonchi right greater than left, wheezing, hypothermia, acute encephalopathy, tachypnea, leukocytosis, and elevated lactate level. The possibility of pneumonia was inserted, but ruled out, as the patient's Chest x- rays and CT of the chest were negative for pneumonia. Blood and urine cultures are negative to date. The patient was empirically placed on Cefepime and Levaquin. Her leukocytosis and vital signs returned to normal. Cefepime was discontinued and she was transitioned to p.o. Levaquin for discharge. (2) Diabetes mellitus type 2 in obese Is this a current diagnosis for this admission?: Yes Summary: The patient's hemoglobin A1c is 8.3% which is at goal given the patient's age and life expectancy. She was admitted with report of hypoglycemia; blood glucose of 24. The patient's Victoza was held. Her Levemir was continued at 10 units daily which is a significant departure from her previous regiment of 55 units twice daily. She did receive Humalog for sliding scale coverage. The patient's blood glucose was slightly elevated but controlled with an average of 250-300. At discharge; the patient's Levemir is 14 units daily. This should be administered in the morning and not to given at qHS. She should continue to receive NovoLog for sliding scale coverage. Recommend discontinuing Victoza. (3) Leukocytosis Is this a current diagnosis for this admission?: Yes Summary: Resolved. Blood and urine cultures have no growth at 72 hours. The patient did receive 3 days of cefepime. She also received 3 days of IV Levaquin and will be transitioned to p.o. Levaquin for discharge. (4) Nausea and vomiting Is this a current diagnosis for this admission?: Yes Summary: Resolved. The patient had emesis prior to arrival by EMS. The patient did not experience any nausea or vomiting during her admission. (5) Chronic kidney disease, stage III (moderate) Is this a current diagnosis for this admission?: Yes Summary: Stable; creatinine currently 0.98 (6) GERD (gastroesophageal reflux disease) Is this a current diagnosis for this admission?: Yes (7) Hypoglycemia Is this a current diagnosis for this admission?: Yes Summary: Resolved; incident prior to admission. (8) Hypothermia Is this a current diagnosis for this admission?: Yes Summary: Resolved. (9) Lactic acidosis Is this a current diagnosis for this admission?: Yes Summary: Resolved. (10) Dementia Is this a current diagnosis for this admission?: Yes Summary: At baseline; patient's home medications are continued. (11) IV infiltrate Is this a current diagnosis for this admission?: Yes Summary: Contrasted CT of the abdomen and pelvis revealed right breast enlargement with skin thickening and diffuse edema or cellulitis with stranding throughout the soft tissues and down the right flank. These findings were worrisome for mastitis versus inflammatory breast cancer. After receiving report from Dr. Schreiber, the patient was reexamined. She was found to have had an infiltrated IV that was established into her right superficial breast vein. She had significant amount of IV fluid infiltrate to the right lateral breast and right flank. The area was nontender. No errythema. Breast exam was limited secondary to infiltrate, however, no obvious lumps or masses are noted. There is no nipple discharge. The skin is intact. (12) Bilateral leg pain Is this a current diagnosis for this admission?: Yes Summary: The patient reports bilateral leg pain that is migratory and worsened with movements. She is noted to have a probable chronic L5 compression deformity that may be the source of her discomfort. The patient denies recent fall or injury. There is no obvious deformity. Bilateral knee x-rays obtained today; severe degenerative changes to the right knee with an intact left knee prosthesis. I did discuss with the patient and her granddaughter, Leandra Rangel, the patient's lower back pain and bilateral leg pain. I also reviewed the incidental findings on the CT of the abdomen which demonstrated chronic L5 compression deformity. The patient's granddaughter reported that the patient fell approximately 3 weeks ago and her pain has been worsened since that time. I did offer MRI imaging of the lower spine which was declined at this time. They are advised to follow-up with her primary care provider to discuss pain and options for further evaluation. The patient was prescribed Lidoderm patches for comfort. - Additional Information Resuscitation Status: Do Not Intubate Discharge Diet: Diabetic Discharge Activity: Activity As Tolerated, Supervised Activity - Please initiate PT/OT therapy upon return to [facility] Prescriptions: Guaifenesin [Mucinex Sr 600 mg Tablet.sa] 600 mg PO Q12 #20 tablet.sa Insulin Detemir [Levemir Insulin 100 units/mL] 14 unit SUBCUT QPM #1 insuln.pen Levofloxacin [Levaquin 750 mg Tablet] 750 mg PO Q2DAYS #3 tablet Lidocaine [Lidoderm 5% (700 mg) Transdermal Patch] 2 patch TP DAILY #30 adh..patch Prednisone [Deltasone 20 mg Tablet] 40 mg PO DAILY #6 tablet Home Medications: Amlodipine Besylate [Norvasc 5 mg Tablet] 5 mg PO Q12 06/24/17 Aripiprazole [Abilify 5 mg Tablet] 10 mg PO DAILY 06/24/17 Aspirin [Aspirin 81 mg Chewable Tablet] 81 mg PO DAILY 06/24/17 Calcium Carbonate/Vitamin D3 [Os-Tye 250 mg with Vitamin D 125 Units] 1 tab PO DAILY 06/24/17 Clonidine [Catapres-Tts 3 (0.3 mg/24 Hr) Transderm Patch] 1 patch TD TU@1000 MDD DUE 06/24/17 06/24/17 Donepezil HCl [Aricept 5 mg Tablet] 10 mg PO QHS 06/24/17 Fenofibrate Nanocrystallized [Tricor 48 mg Tablet] 48 mg PO DAILY 06/24/17 Ferrous Sulfate [Feosol 325 mg Tablet] 325 mg PO Q12 06/24/17 Hydralazine HCl [Apresoline 50 mg Tablet] 50 mg PO Q8 06/24/17 Hydrocodone Bit/Acetaminophen [Hydrocodon-Acetaminophen 5-325] 1 tab PO HSP PRN 06/24/17 Insulin Aspart [Novolog Flexpen] 0 unit SUBCUT .SLD SCALE 06/24/17 Isosorbide Mononitrate [Isosorbide Mononitrate ER] 30 mg PO DAILY 06/24/17 Lansoprazole [Prevacid 30 mg Odt Tablet] 30 mg PO Q6AM 06/24/17 Paroxetine HCl [Paxil 20 mg Tablet] 40 mg PO DAILY 06/24/17 Polyvinyl Alcohol [Liquitears 1.4% Ophth Soln 15 ml] 1 drop OU QID 06/24/17 Ranolazine [Ranexa 500 mg Tab.sr] 500 mg PO Q12 06/24/17 Rosuvastatin Calcium [Crestor 20 mg Tablet] 20 mg PO QHS 06/24/17 Valsartan [Diovan 160 mg Tablet] 320 mg PO DAILY 06/24/17 Acetaminophen [Tylenol 325 mg Tablet] 650 mg PO Q4HP PRN tablet 06/27/17 Guaifenesin [Mucinex Sr 600 mg Tablet.sa] 600 mg PO Q12 #20 tablet.sa 06/27/17 Insulin Detemir [Levemir Insulin 100 units/mL] 14 unit SUBCUT QPM #1 insuln.pen 06/27/17 Levofloxacin [Levaquin 750 mg Tablet] 750 mg PO Q2DAYS #3 tablet 06/27/17 Lidocaine [Lidoderm 5% (700 mg) Transdermal Patch] 2 patch TP DAILY #30 adh..patch 06/27/17 Prednisone [Deltasone 20 mg Tablet] 40 mg PO DAILY #6 tablet 06/27/17 History of Present Illness Admission Date/PCP: 06/24/17 11:35 ROSANNE PADILLA DO History of Present Illness: LUAN MYRICK is a 86 year old female with a past medical history of dementia, coronary artery disease, CO, hyperlipidemia, hypertension, CVA with left-sided weakness, insulin-dependent diabetes mellitus, osteoarthritis, anxiety, bipolar , depression and schizophrenia who presented to the emergency department today via EMS for a report of increased sedation noted by senior care staff. Typically the patient wakes trackwalker and was found at 0 600 still sleeping. Her blood sugar was checked and found to be in the low 20s. Upon arrival to the emergency department her BGL remained in the 20s, rectal temperature was found to be 95.1, she was dictated next with a rate of 22, and decreased mental status. The patient was noted to be covered and emesis, however, this was not witnessed by senior care staff or EMS personnel. Presumably the patient vomited overnight. Evaluation by the emergency department also revealed leukocytosis at 13.9, anemia with a hemoglobin of 10.7, platelet count of 453, chemistry with a slightly low CO2 at 20, elevated BUN to 36, glucose elevated to 236 following correction, and a lactic acid level of 3.5. Thyroid function, urinalysis, and chest x-ray were unremarkable. The patient's only complaint at this time is bilateral leg pain. She is referred to the hospitalist service for admission and management of SIRS. Physical Exam Vital Signs: Temp Pulse Resp BP Pulse Ox 98.7 F 85 17 163/60 H 100 06/27/17 11:44 06/27/17 11:44 06/27/17 11:44 06/27/17 11:44 06/27/17 11:44 Intake & Output 06/26/17 06/27/17 06/28/17 06:59 06:59 06:59 Intake Total 3136 486 Output Total 3200 2400 Balance -64 -1914 Weight 78.6 kg 78.5 kg General appearance: PRESENT: no acute distress, well-developed, well-nourished, other - Overweight Head exam: PRESENT: atraumatic, normocephalic Eye exam: PRESENT: conjunctiva pink, EOMI, PERRLA. ABSENT: scleral icterus Ear exam: PRESENT: normal external ear exam Mouth exam: PRESENT: moist, tongue midline Neck exam: ABSENT: carotid bruit, JVD, lymphadenopathy, thyromegaly Respiratory exam: PRESENT: clear to auscultation john, symmetrical, unlabored. ABSENT: rales, rhonchi, wheezes Cardiovascular exam: PRESENT: RRR, +S1, +S2. ABSENT: diastolic murmur, rubs, systolic murmur Pulses: PRESENT: normal dorsalis pedis pul Vascular exam: PRESENT: normal capillary refill GI/Abdominal exam: PRESENT: normal bowel sounds, soft. ABSENT: distended, guarding, mass, organolmegaly, rebound, tenderness Rectal exam: PRESENT: deferred Extremities exam: ABSENT: calf tenderness, clubbing, full ROM - BLE limited secondary to pain., pedal edema Neurological exam: PRESENT: alert, awake, oriented to person, oriented to place , oriented to situation, CN II-XII grossly intact. ABSENT: oriented to time, motor sensory deficit Psychiatric exam: PRESENT: appropriate affect, normal mood. ABSENT: homicidal ideation, suicidal ideation Skin exam: PRESENT: dry, intact, warm. ABSENT: cyanosis, rash Results Laboratory Results: 06/27/17 06:16 06/27/17 06:16 06/27/17 06/27/17 06:16 06:16 WBC 10.0 RBC 3.51 L Hgb 10.2 L Hct 30.4 L MCV 87 MCH 29.1 MCHC 33.6 RDW 13.2 Plt Count 353 Seg Neutrophils % 86.5 H Lymphocytes % 7.2 L Monocytes % 5.7 Eosinophils % 0.1 Basophils % 0.5 Absolute Neutrophils 8.6 H Absolute Lymphocytes 0.7 Absolute Monocytes 0.6 Absolute Eosinophils 0.0 Absolute Basophils 0.0 Sodium 139.2 Potassium 4.7 Chloride 104 Carbon Dioxide 21 L Anion Gap 14 BUN 23 H Creatinine 0.98 Est GFR ( Amer) > 60 Est GFR (Non-Af Amer) 54 L Glucose 275 H Calcium 9.8 06/25/17 04:18 NT-Pro-B Natriuret Pep 774 H Impressions: Abdomen/Pelvis CT 06/24/17 00:00 IMPRESSION: Right-sided mastitis. Inflammatory breast cancer could mimic this appearance. No CT evidence of bowel obstruction or free intraperitoneal air or fluid Probable chronic compression deformity at L5 with pseudoarthrosis Acute Abdomen Series 06/24/17 06:51 IMPRESSION: Diffuse gaseous distention of the stomach out of proportion to colon and small bowel. Question gastroparesis versus gastric outlet compromise from stricture or ulcer. Chest CT 06/25/17 00:00 IMPRESSION: No focal consolidation worrisome for pneumonia. Chest X-Ray 06/25/17 06:00 IMPRESSION: Stable appearance of the chest. No evidence of aspiration pneumonia. Knee X-Ray 06/26/17 00:00 IMPRESSION: SEVERE DEGENERATIVE CHANGES IN THE RIGHT KNEE. INTACT LEFT KNEE PROSTHESIS. NO ACUTE FINDINGS. Transfer Plan - Disposition Transfer Plan: Discharge to [facility] where the patient is an established resident. Qualifiers - * PATEINT BEING DISCHARGED WITH ANY OF THE FOLLOWING DIAGNOSIS?: No Plan Discharge Plan: Items for follow-up: Recommend Physical Therapy and Occupational Therapy services. Recommend close monitoring of blood glucose with hypoglycemia protocols in place. The patient's Victoza has been discontinued. Her Levemir has been decreased to 14 units given once daily. Continue Humalog for sliding scale coverage; she is not currently receiving meal-time bolus dosing. Time Spent: Greater than 30 Minutes
[2017-06-27] MEDS: INSULIN LISPRO 100 UNIT/ML 3 ML VIAL SUBCUT PRN (15:00)
[2017-06-27] MEDS: INSULIN DETEMIR 100 UNIT/ML 3 ML PEN SUBCUT SCH (17:55)
[2017-06-27 20:03] VITALS: BP 132/65
[2017-07-01] MEDS ORDERED: CLONIDINE 0.3 MG/24 HR PATCH.TDWK TD SCH (10:00)
== END 2017-06-27 20:09 | DRG 871 ==
LOC: ER 06:33 → EH 11:35 → UNDOADMIN 11:35 → 4N 18:16
PROVIDERS: ADMIT Family Medicine; ATTEND Family Medicine
DX: A41.9 Sepsis, unspecified organism (principal); G93.41 Metabolic encephalopathy; I69.359 Hemiplegia and hemiparesis following cerebral infarction affecting unspecified side; T80.29XA Infection following other infusion, transfusion and therapeutic injection, initial encounter; L03.319 Cellulitis of trunk, unspecified; E66.9 Obesity, unspecified; Z79.4 Long term (current) use of insulin; D72.829 Elevated white blood cell count, unspecified; N18.3 Chronic kidney disease, stage 3 (moderate); K21.9 Gastro-esophageal reflux disease without esophagitis; F03.90 Unspecified dementia, unspecified severity, without behavioral disturbance, psychotic disturbance, mood disturbance, and anxiety; T80.89XA Other complications following infusion, transfusion and therapeutic injection, initial encounter; Z66 Do not resuscitate; M19.90 Unspecified osteoarthritis, unspecified site; I25.10 Atherosclerotic heart disease of native coronary artery without angina pectoris; F41.9 Anxiety disorder, unspecified; F20.9 Schizophrenia, unspecified; I12.9 Hypertensive chronic kidney disease with stage 1 through stage 4 chronic kidney disease, or unspecified chronic kidney disease; E11.22 Type 2 diabetes mellitus with diabetic chronic kidney disease; R11.2 Nausea with vomiting, unspecified; E11.649 Type 2 diabetes mellitus with hypoglycemia without coma; A49.8 Other bacterial infections of unspecified site; F31.9 Bipolar disorder, unspecified; M48.061 Spinal stenosis, lumbar region without neurogenic claudication; M79.605 Pain in left leg; M79.604 Pain in right leg; E78.5 Hyperlipidemia, unspecified; Y84.8 Other medical procedures as the cause of abnormal reaction of the patient, or of later complication, without mention of misadventure at the time of the procedure; Z88.8 Allergy status to other drugs, medicaments and biological substances; Z88.6 Allergy status to analgesic agent; Z88.2 Allergy status to sulfonamides; Z88.0 Allergy status to penicillin
CPT/HCPCS: 36415; 51701; 51702; 71045; 71250; 74022; 74176; 74177; 80048; 80053; 81001; 82803; 82962; 83036; 83605; 83880; 84439; 84443; 84481; 84484; 85025; 85027; 87040; 87086; 93005; 93010; 93971; 94640; 94799; 96360; 96361; 96365; 99285; G0378; G8978-GP; G8979-GP; G8987-GO; G8988-GO; G8989-GO; J0360; J0692; J1644; J1815; J1956; J3490; J7030; J7512; J7620

== ENCOUNTER 2017-08-05 11:21 | Emergency (ER) | payer MEDICARE, OTHER ==
--- NOTE | 2017-08-05 12:13 | ER Document Report ---
ED Fall - General Chief Complaint: Fall Stated Complaint: FALL HEAD PAIN Time Seen by Provider: 08/05/17 11:57 Information source: Patient, Emergency Med Personnel, Outside Facility Records Notes: Patient is an 86-year-old female with past medical history as recorded who presents by EMS after the patient supposedly fell while transferring from her wheelchair to her bed hitting the left side of her head. It was not witnessed. Staff states that they hold the chair alarm. Patient denies any lightheadedness, dizziness, chest pain, abdominal pain, nausea, vomiting, or fevers. She states she has pain only to the left side of her head. She denies a loss of consciousness. Patient only takes an 81 mg aspirin daily. I called the staff and spoke to Cady, the patient's care provider at the [facility], who verifies the story. She states that the patient is somewhat oriented at baseline. She states the patient is not supposed to ambulate. She states the patient has had frequent falls recently including bruising to her back and a right toe abrasion. She states that they are following this ablation at the care facility. TRAVEL OUTSIDE OF THE [place] IN LAST 30 DAYS: No - HPI Occurred: Just prior to arrival Where: Other - See above Context: Fell from sitting Associated symptoms: None Location of injury/pain: Other - See above Quality of pain: Dull Severity: Mild Pain Level: 1 - Related data Allergies/Adverse Reactions: celecoxib [From Celebrex] Allergy (Intermediate, Verified 05/07/17 02:54) gabapentin [From Neurontin] Allergy (Intermediate, Verified 05/07/17 02:54) lamotrigine [From Lamictal] Allergy (Intermediate, Verified 05/07/17 02:54) meloxicam [From Mobic] Allergy (Intermediate, Verified 05/07/17 02:54) thiothixene [From Navane] Allergy (Intermediate, Verified 05/07/17 02:54) amoxicillin trihydrate [From Augmentin] Allergy (Unknown, Verified 05/07/17 02: 54) citalopram hydrobromide [From Celexa] Allergy (Unknown, Verified 05/07/17 02:54) codeine [Codeine] Allergy (Unknown, Verified 05/07/17 02:54) divalproex sodium [From Depakote] Allergy (Unknown, Verified 05/07/17 02:54) hydrocodone bitartrate [From Lorcet 10/650] Allergy (Unknown, Verified 05/07/17 02:54) methocarbamol [From Robaxin] Allergy (Unknown, Verified 05/07/17 02:54) nabumetone [From Relafen] Allergy (Unknown, Verified 05/07/17 02:54) oxycodone [Oxycodone] Allergy (Unknown, Verified 05/07/17 02:54) Sulfa (Sulfonamide Antibiotics) Allergy (Unknown, Verified 05/07/17 02:54) terazosin [Terazosin] Allergy (Unknown, Verified 05/07/17 02:54) tramadol HCl [From Ultram] Allergy (Unknown, Verified 05/07/17 02:54) Past Medical History - General Information source: Patient - Social History Smoking Status: Never Smoker Cigarette use (# per day): No Chew tobacco use (# tins/day): No Smoking Education Provided: No Frequency of alcohol use: None Family History: Reviewed & Not Pertinent, Other Patient has suicidal ideation: No Patient has homicidal ideation: No - Past Medical History Cardiac Medical History: Reports: Hx Congestive Heart Failure, Hx Coronary Artery Disease, Hx Heart Attack, Hx Hypercholesterolemia, Hx Hypertension Denies: Hx Heart Murmur Pulmonary Medical History: Reports: Hx Pneumonia Denies: Hx Respiratory Failure, Hx Sleep Apnea, Hx Tuberculosis Neurological Medical History: Reports: Hx Cerebrovascular Accident - Residual symptoms include left sided arm and leg numbness and weakness, Hx Seizures - "long time ago" Endocrine Medical History: Reports: Hx Diabetes Mellitus Type 2 Renal/ Medical History: Denies: Hx Peritoneal Dialysis Malignancy Medical History: GI Medical History: Denies: Hx Hiatal Hernia, Hx Pancreatitis, Hx Ulcer Musculoskeltal Medical History: Reports Hx Arthritis - osteo Psychiatric Medical History: Reports: Hx Anxiety, Hx Bipolar Disorder, Hx Dementia, Hx Depression, Hx Schizophrenia Traumatic Medical History: Infectious Medical History: Past Surgical History: Reports: Hx Appendectomy, Hx Cardiac Catheterization, Hx Cholecystectomy, Hx Hysterectomy, Hx Orthopedic Surgery - back surgery x 7, Hx Tonsillectomy - Immunizations Hx Diphtheria, Pertussis, Tetanus Vaccination: Yes Hx Pneumococcal Vaccination: 03/17/09 Review of Systems - Review of Systems Constitutional: denies: Fever EENT: denies: Eye discharge, Nose discharge Respiratory: denies: Short of breath Gastrointestinal: denies: Vomiting Genitourinary: denies: Dysuria Musculoskeletal: denies: Leg swelling Skin: denies: Rash Neurological/Psychological: Other - no slurred speech -: Yes All other systems reviewed and negative Physical Exam - Vital signs Vitals: Temp Pulse Resp BP Pulse Ox 98.4 F 79 16 127/51 H 100 08/05/17 11:49 08/05/17 11:49 08/05/17 11:49 08/05/17 11:49 08/05/17 11:49 Interpretation: Normal Notes: Reviewed vital signs and nursing note as charted by RN. CONSTITUTIONAL: Alert and oriented and responds appropriately to questions. Well -appearing; well-nourished HEAD: Normocephalic; atraumatic EYES: PERRL ENT: Normal nose; no rhinorrhea; moist mucous membranes; pharynx without lesions noted NECK: Supple without meningismus; non-tender CARD: Regular rate and rhythm; no murmurs, no clicks, no rubs, no gallops; symmetric distal pulses RESP: Normal chest excursion without splinting or tachypnea; breath sounds clear and equal bilaterally ABD/GI: Normal bowel sounds; non-distended; soft, non-tender to deep palpation of all 4 quadrants of the abdomen; flood catheter in place BACK: The back appears normal and is non-tender to palpation along the midline spine EXT: Normal ROM in all joints; minimal tenderness without bruising to the left knee with an old left knee replacement scar. An abrasion to the second MCP of the right toe consistent with previous fall SKIN: See above NEURO: Moves all extremities. Left leg tender to flexion at the knee PSYCH: The patient's mood and manner are appropriate. Grooming and personal hygiene are appropriate Course - Re-evaluation Re-evalutation: 08/05/17 12:13 Given the above history and physical examination with the patient's age we will obtain a CT scan of the head, cervical spine, x-ray of the pelvis and the left knee. Patient has no focal neurological deficits on my examination. We will clean and dressed the patient's toe given the previous abrasion. 08/05/17 14:54 No change in examination. Patient's imaging of the CT of the head, cervical spine, and x-rays of the left knee and pelvis show no acute abnormalities. Patient will be discharged back to the facility with strict return precautions. - Vital Signs Vital signs: Temp Pulse Resp BP Pulse Ox 98.4 F 79 16 127/51 H 100 08/05/17 11:49 08/05/17 11:49 08/05/17 11:49 08/05/17 11:49 08/05/17 11:49 Discharge - Discharge Clinical Impression: Accidental fall Qualifiers: Encounter type: initial encounter Qualified Code(s): W19.XXXA - Unspecified fall, initial encounter Left knee injury Qualifiers: Encounter type: initial encounter Qualified Code(s): S89.92XA - Unspecified injury of left lower leg, initial encounter Condition: Good Disposition: HOME, SELF-CARE Additional Instructions: Come back immediately with any vomiting, weakness, change in mental status, or any other acute problems. Please have the patient follow-up with the primary care physician in the next week for reevaluation.
[2017-08-05] MEDS ORDERED: BACITRACIN ZINC OINTMENT 15 GM TP ONE (12:14)
--- NOTE | 2017-08-05 12:37 | RADIOLOGY REPORT (SQ) ---
EXAM DESCRIPTION: PELVIS AP COMPLETED DATE/TIME: 08/05/2017 12:19 pm REASON FOR STUDY: 13, fall COMPARISON: None. NUMBER OF VIEWS: One view TECHNIQUE: AP Pelvis LIMITATIONS: None. FINDINGS: MINERALIZATION: Normal. HIPS: No acute fracture or dislocation. No worrisome bone lesions. PELVIS AND SACRUM: No acute fracture or dislocation. No worrisome bone lesions. PUBIS AND ISCHIUM: No acute fracture. Degenerative changes are identified at the level of the pubic symphysis. LOWER LUMBAR SPINE: Degenerative changes are identified in the lower lumbar spine. SOFT TISSUES: No findings. OTHER: No other significant finding. IMPRESSION: No significant findings. TECHNICAL DOCUMENTATION: JOB ID: [id number] [employer]- All Rights Reserved Reading location - IP/workstation name: [email or web address]
--- NOTE | 2017-08-05 12:45 | RADIOLOGY REPORT (SQ) ---
EXAM DESCRIPTION: KNEE LEFT 4 VIEW COMPLETED DATE/TIME: 08/05/2017 12:19 pm REASON FOR STUDY: 13, fall COMPARISON: Left knee films 02/13/2014, 07/10/2013, 05/08/2013, 04/05/2008, 02/02/2007 NUMBER OF VIEWS: Four views. TECHNIQUE: AP, lateral, and both oblique radiographic images acquired of the left knee. LIMITATIONS: None. FINDINGS: MINERALIZATION: Immediate bones are normal density for age BONES: No acute fracture or malalignment. Old left total knee replacement, hardware is stable compared to 2006. Patellar resurfacing. No lucency around the hardware worrisome for loosening. JOINT: Small suprapatellar knee joint effusion SOFT TISSUES: No soft tissue swelling. No radio-opaque foreign body. OTHER: No other significant finding. IMPRESSION: Post total knee replacement. Small suprapatellar knee joint effusion. No acute fractur e or malalignment TECHNICAL DOCUMENTATION: JOB ID: [id number] [employer]- All Rights Reserved Reading location - IP/workstation name: [email or web address]
--- NOTE | 2017-08-05 12:52 | RADIOLOGY REPORT (SQ) ---
EXAM DESCRIPTION: CT HEAD WITHOUT COMPLETED DATE/TIME: 08/05/2017 12:34 pm REASON FOR STUDY: 13, fall COMPARISON: July 2016 TECHNIQUE: Axial images acquired through the brain without intravenous contrast. Images reviewed wi th bone, brain and subdural windows. Additional sagittal and coronal reconstructions were generated. Images stored on PACS. All CT scanners at this facility use dose modulation, iterative reconstruction, and/or weight based d osing when appropriate to reduce radiation dose to as low as reasonably achievable (ALARA). [facility]: Dose Right [facility]: CareDose [facility]: Dose Right [facility]: Teradose 4D [facility]: Smart Yan[employer] RADIATION DOSE: CT Rad equipment meets quality standard of care and radiation dose reduction techniq ues were employed. CTDIvol: 53.2 mGy. DLP: 991 mGy-cm.mGy. LIMITATIONS: None. FINDINGS: VENTRICLES: Prominent. CEREBRUM: No masses. No hemorrhage. No midline shift. Areas of low density in the white matter mos t likely due to chronic micro-vascular ischemic change. No evidence for acute infarction. CEREBELLUM: No masses. No hemorrhage. No alteration of density. No evidence for acute infarction. EXTRAAXIAL SPACES: Age-related involutional change. No fluid collections. No masses. ORBITS AND GLOBE: No intra- or extraconal masses. Normal contour of globe without masses. CALVARIUM: No fracture. PARANASAL SINUSES: No fluid or mucosal thickening. SOFT TISSUES: No mass or hematoma. OTHER: No other significant finding. IMPRESSION: CHRONIC CHANGES OF ATROPHY AND MICROVASCULAR ISCHEMIA. NO ACUTE PROCESS. EVIDENCE OF ACUTE STROKE: NO. TECHNICAL DOCUMENTATION: JOB ID: [id number] Quality ID # [id number]: Final reports with documentation of one or more dose reduction techniques (e.g., Au tomated exposure control, adjustment of the mA and/or kV according to patient size, use of iterative reconstruction technique) 2010 [employer]- All Rights Reserved Reading location - IP/workstation name: [email or web address]
--- NOTE | 2017-08-05 12:59 | RADIOLOGY REPORT (SQ) ---
EXAM DESCRIPTION: CT CERVICAL SPINE WITHOUT COMPLETED DATE/TIME: 08/05/2017 12:34 pm REASON FOR STUDY: 13, fall injury pain COMPARISON: CT cervical spine 07/21/2016, 12/29/2013, 03/22/2013 TECHNIQUE: Axial images acquired through the cervical spine without intravenous contrast. Images re viewed with lung, soft tissue and bone windows. Reconstructed coronal and sagittal MPR images review ed. Images stored on PACS. All CT scanners at this facility use dose modulation, iterative reconstruction, and/or weight based d osing when appropriate to reduce radiation dose to as low as reasonably achievable (ALARA). [facility]: Dose Right [facility]: CareDose [facility]: Dose Right [facility]: Teradose 4D [facility]: Involvio RADIATION DOSE: CT Rad equipment meets quality standard of care and radiation dose reduction techniq ues were employed. CTDIvol: 24.1 mGy. DLP: 407 mGy-cm. mGy. LIMITATIONS: None. FINDINGS: ALIGNMENT: Anatomic. MINERALIZATION: Osteopenic, age-appropriate VERTEBRAL BODIES: No fractures or dislocation. DISCS: Patient has fusion with hardware at C4-5. Patient is fusion without hardware at C3-4 and C6-7 . FACETS, LATERAL MASSES, POSTERIOR ELEMENTS: No fractures. No dislocation. No acute findings. HARDWARE: None in the spine. VISUALIZED RIBS: No fractures. LUNG APICES AND SOFT TISSUES: No significant or acute findings. OTHER: There is advanced degenerative change at the craniocervical junction, and atlantoaxial joint. Bulky pannus is present, bulging dorsally and abutting the ventral cord at the C1 level without cord flattening or significant central stenosis IMPRESSION: No acute fracture or malalignment. Patient is fused from C3 through C7. 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 TECHNICAL DOCUMENTATION: JOB ID: [id number] Quality ID # [id number]: Final reports with documentation of one or more dose reduction techniques (e.g., Au tomated exposure control, adjustment of the mA and/or kV according to patient size, use of iterative reconstruction technique) 2010 [employer]- All Rights Reserved Reading location - IP/workstation name: [email or web address]
[2017-08-05 16:18] VITALS: BP 132/61
== END 2017-08-05 16:17 | disposition home or self-care (01) ==
LOC: ER 11:21
DX: S89.92XA Unspecified injury of left lower leg, initial encounter (principal); S90.414A Abrasion, right lesser toe(s), initial encounter; R51 Headache; W05.0XXA Fall from non-moving wheelchair, initial encounter; I50.9 Heart failure, unspecified; I25.10 Atherosclerotic heart disease of native coronary artery without angina pectoris; E78.00 Pure hypercholesterolemia, unspecified; E11.9 Type 2 diabetes mellitus without complications; Z79.82 Long term (current) use of aspirin; Z88.0 Allergy status to penicillin; Z88.2 Allergy status to sulfonamides; Z88.6 Allergy status to analgesic agent; I25.2 Old myocardial infarction; Z90.49 Acquired absence of other specified parts of digestive tract; Z90.710 Acquired absence of both cervix and uterus
CPT/HCPCS: 99285; 73562; 72170; 70450; 72125; J3490

== ENCOUNTER → 2017-08-19 | Outpatient (CLI) | payer MEDICARE, OTHER ==
--- NOTE | 2017-08-19 15:57 | RADIOLOGY REPORT (SQ) ---
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 NUMBER OF VIEWS: Three views. TECHNIQUE: AP, lateral and oblique radiographic images acquired of the right foot. LIMITATIONS: None. FINDINGS: MINERALIZATION: Normal. BONES: No acute fracture or dislocation. No worrisome bone lesions. Hardware in the distal fibula. JOINTS: Chronic appearing degenerative changes in the 1st metatarsal phalangeal joint and several int erphalangeal joints of the digits. SOFT TISSUES: Soft tissue swelling of the 2nd toe. No foreign body. OTHER: No other significant finding. IMPRESSION: CHRONIC DEGENERATIVE CHANGES. SOFT TISSUE SWELLING OF THE 2ND TOE. NO ACUTE FINDINGS. TECHNICAL DOCUMENTATION: JOB ID: [id number] [employer]- All Rights Reserved Reading location - IP/workstation name: [email or web address]
== END ==
LOC: OD 14:36
PROVIDERS: ATTEND Family Medicine
DX: L97.512 Non-pressure chronic ulcer of other part of right foot with fat layer exposed (principal)

== ENCOUNTER 2017-09-23 11:40 | Outpatient (CLI) | payer MEDICARE, OTHER ==
[~2017-09-23 11:40] MED LIST: FERUMOXYTOL (ESRD) 510 MG/NS 100 ML IV PRN
[2017-09-23 12:44] VITALS: BP 148/68
== END 2017-09-23 14:00 ==
LOC: EDBD → II 11:40 → 5TH 11:41 → II 14:00
PROVIDERS: ATTEND Internal Medicine Nephrology
PROC: 3E033GC Introduction of Other Therapeutic Substance into Peripheral Vein, Percutaneous Approach (ICD-10-PCS; principal; 2017-09-23)
DX: D50.8 Other iron deficiency anemias (principal); N18.9 Chronic kidney disease, unspecified
CPT/HCPCS: 96367; Q0139; 96365

== ENCOUNTER → 2017-09-25 | Outpatient (CLI) | payer MEDICARE, OTHER ==
--- NOTE | 2017-09-25 11:37 | RADIOLOGY REPORT (SQ) ---
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 NUMBER OF VIEWS: Three views right foot. Three views left foot. TECHNIQUE: AP, lateral and oblique without weight bearing radiographic images acquired of the right and left foot. LIMITATIONS: None. FINDINGS: MINERALIZATION: Osteopenia. BONES: No acute fracture or dislocation. No worrisome bone lesions. Scattered osteophytes. Surgical changes right foot. No evidence on plain radiographs of osteomyelitis. JOINTS: No erosions. No ady-articular osteopenia. No chondrocalcinosis. SOFT TISSUES: No foreign bodies. No calcifications. OTHER: No other significant finding. IMPRESSION: No evidence on plain radiographs for osteomyelitis. TECHNICAL DOCUMENTATION: JOB ID: [id number] [employer]- All Rights Reserved Reading location - IP/workstation name: [email or web address]
== END ==
LOC: RAD 10:45
PROVIDERS: ATTEND Surgery
DX: I73.9 Peripheral vascular disease, unspecified (principal); L97.509 Non-pressure chronic ulcer of other part of unspecified foot with unspecified severity

== ENCOUNTER 2017-10-01 08:57 | Outpatient (CLI) | payer MEDICARE, OTHER ==
[~2017-10-01 08:57] MED LIST changes: -FERUMOXYTOL (ESRD) 510 MG/NS 100 ML IV PRN; +FERUMOXYTOL 510 MG in NORMAL SALINE 100 ML IV PRN; +NORMAL SALINE 250 ML IV PRN
[2017-10-01 09:57] VITALS: BP 176/87
== END 2017-10-01 10:55 ==
LOC: EDBD → II 08:57 → EDBD 08:57 → 5TH 09:10 → II 10:55
PROVIDERS: ATTEND Internal Medicine Nephrology
PROC: 3E033GC Introduction of Other Therapeutic Substance into Peripheral Vein, Percutaneous Approach (ICD-10-PCS; principal; 2017-10-01)
DX: D50.8 Other iron deficiency anemias (principal); N18.9 Chronic kidney disease, unspecified
CPT/HCPCS: 96367; Q0138; 96365

== ENCOUNTER → 2017-10-01 | Outpatient (CLI) | payer MEDICARE, OTHER ==
--- NOTE | 2017-10-03 08:40 | XCELERA REPORT ---
[address] [address] Lower Extremity Arterial Evaluation Name: LUAN MYRICK Age: 86 yrs Gender: Female : 1930 Patient Status: Outpatient Patient Location: Study Date: 10/01/2017 08:14 AM Procedure: A color flow and duplex scan of the lower extremity arteries was performed bilaterally with velocity and waveform anaylsis. Reason For Study: PAD Ordering Physician: JIM GREGG Performed By: Eusebio Vyas Measurements and Calculations Right Left SWITCHBOARD WIRER PSV 116.3 141.8 cm/sec Prox PFA PSV -112.4 -129.2 cm/sec Prox SFA PSV 81.5 120.1 cm/sec Mid SFA PSV -104.8 -86.9 cm/sec Dist SFA PSV -88.2 -103.7 cm/sec Prox Pop A PSV 102.0 110.6 cm/sec Dist CIERA PSV -13.2 68.8 cm/sec Dist MITTEN SEWER PSV 52.4 17.1 cm/sec Chicho Pedis PSV 34.8 -95.4 cm/sec Right Side Arterial Evaluation Normal velocity and triphasic waveforms noted from the Common Femoral artery to the Posterior Tibial artery . Retrograde, biphasic flow in the Anterior Tibial artery. 20-49 % stenosis at the Anterior Tibial artery. Ankle Brachial index was not done due to pain.. Left Side Arterial Evaluation Normal velocity and triphasic waveforms noted from the Common Femoral artery to the Posterior Tibial artery . Biphasic flow in the Anterior Tibial artery. 20-49 % stenosis at the Anterior Tibial artery. Based on increased velocity and waveform. Ankle Brachial index was not done due to pain.. Interpretation Summary Mild hemodynamically significant lesions in the bilateral lower extremities, on duplex imaging, at rest. Excellent Posterior Tibial flow compensates for Anterior Tibial disease. : JIM GREGG > Jim Gregg
== END ==
LOC: EDBD → SP 07:54
PROVIDERS: ATTEND Surgery
DX: I73.9 Peripheral vascular disease, unspecified (principal)
CPT/HCPCS: 93925

== ENCOUNTER → 2018-02-11 | Outpatient (CLI) | payer MEDICARE, OTHER ==
[2018-02-11 10:51] LABS: HEMATOCRIT 37.4 % (36.0-47.0); HEMOGLOBIN 12.9 g/dL (12.0-15.5); MEAN CORPUSCULAR HEMOGLOBIN 31.9 pg (27.0-33.4); MEAN CORPUSCULAR HGB CONC 34.4 g/dL (32.0-36.0); MEAN CORPUSCULAR VOLUME 93 fl (80-97); PLATELET COUNT 258 10^3/uL (150-450); RED BLOOD COUNT 4.04 10^6/uL (3.72-5.28); RED CELL DISTRIBUTION WIDTH 12.6 % (11.5-14.0); WHITE BLOOD COUNT 8.8 10^3/uL (4.0-10.5)
[2018-02-11 11:11] LABS: ANION GAP 16 (5-19); BLOOD UREA NITROGEN 29 mg/dL (7-20); CALCIUM 10.1 mg/dL (8.4-10.2); CARBON DIOXIDE 20 mmol/L (22-30); CHLORIDE 104 mmol/L (98-107); GLUCOSE 165 mg/dL (75-110); IRON(TIBC) 49.8 ug/dL (37-170); SODIUM 140.3 mmol/L (137-145)
== END ==
LOC: OD 09:16
PROVIDERS: ATTEND Internal Medicine Nephrology
DX: N18.3 Chronic kidney disease, stage 3 (moderate) (principal); E11.9 Type 2 diabetes mellitus without complications; I12.9 Hypertensive chronic kidney disease with stage 1 through stage 4 chronic kidney disease, or unspecified chronic kidney disease
CPT/HCPCS: 36415; 80048; 82728; 83540; 83550; 85027

== ENCOUNTER 2018-02-20 23:10 | Emergency (ER) | payer MEDICARE, OTHER ==
--- NOTE | 2018-02-20 23:35 | ER Document Report ---
ED General - General Chief Complaint: Fall Stated Complaint: fall, hip and back pain Time Seen by Provider: 02/20/18 23:22 Notes: Patient is an 87-year-old female presents with complaint of a fall. She fell onto her left side when she rolled out of bed at the custodial. She does walk with a walker but says that she was not using a walker she just rolled out of bed and fell onto her left side. She complains of pain in left hip and left shoulder and left lower leg. She also complains of pain in her lower back. She denies any pain in her right side. She denies hitting her head. She does have some bruising on the underside of her chin which appears old. She has no pain with opening closing her mouth. She has no other complaints at this time. TRAVEL OUTSIDE OF THE [place] IN LAST 30 DAYS: No - Related Data Allergies/Adverse Reactions: celecoxib [From Celebrex] Allergy (Intermediate, Verified 05/07/17 02:54) gabapentin [From Neurontin] Allergy (Intermediate, Verified 05/07/17 02:54) lamotrigine [From Lamictal] Allergy (Intermediate, Verified 05/07/17 02:54) meloxicam [From Mobic] Allergy (Intermediate, Verified 05/07/17 02:54) thiothixene [From Navane] Allergy (Intermediate, Verified 05/07/17 02:54) amoxicillin trihydrate [From Augmentin] Allergy (Unknown, Verified 05/07/17 02: 54) citalopram hydrobromide [From Celexa] Allergy (Unknown, Verified 05/07/17 02:54) codeine [Codeine] Allergy (Unknown, Verified 05/07/17 02:54) divalproex sodium [From Depakote] Allergy (Unknown, Verified 05/07/17 02:54) hydrocodone bitartrate [From Lorcet 10/650] Allergy (Unknown, Verified 05/07/17 02:54) methocarbamol [From Robaxin] Allergy (Unknown, Verified 05/07/17 02:54) nabumetone [From Relafen] Allergy (Unknown, Verified 05/07/17 02:54) oxycodone [Oxycodone] Allergy (Unknown, Verified 05/07/17 02:54) Sulfa (Sulfonamide Antibiotics) Allergy (Unknown, Verified 05/07/17 02:54) terazosin [Terazosin] Allergy (Unknown, Verified 05/07/17 02:54) tramadol HCl [From Ultram] Allergy (Unknown, Verified 05/07/17 02:54) Past Medical History - Social History Smoking Status: Unknown if Ever Smoked Frequency of alcohol use: None Drug Abuse: None Family History: Reviewed & Not Pertinent, Other Patient has suicidal ideation: No Patient has homicidal ideation: No - Past Medical History Cardiac Medical History: Reports: Hx Congestive Heart Failure, Hx Coronary Artery Disease, Hx Heart Attack, Hx Hypercholesterolemia, Hx Hypertension Denies: Hx Heart Murmur Pulmonary Medical History: Reports: Hx Pneumonia Denies: Hx Respiratory Failure, Hx Sleep Apnea, Hx Tuberculosis Neurological Medical History: Reports: Hx Cerebrovascular Accident - Residual symptoms include left sided arm and leg numbness and weakness, Hx Seizures - "long time ago" Endocrine Medical History: Reports: Hx Diabetes Mellitus Type 2 Renal/ Medical History: Denies: Hx Peritoneal Dialysis Malignancy Medical History: GI Medical History: Denies: Hx Hiatal Hernia, Hx Pancreatitis, Hx Ulcer Musculoskeletal Medical History: Reports Hx Arthritis - osteo Psychiatric Medical History: Reports: Hx Anxiety, Hx Bipolar Disorder, Hx Dementia, Hx Depression, Hx Schizophrenia Traumatic Medical History: Infectious Medical History: Past Surgical History: Reports: Hx Appendectomy, Hx Cardiac Catheterization, Hx Cholecystectomy, Hx Hysterectomy, Hx Orthopedic Surgery - back surgery x 7, Hx Tonsillectomy - Immunizations Hx Diphtheria, Pertussis, Tetanus Vaccination: Yes Hx Pneumococcal Vaccination: 03/17/09 Review of Systems - Review of Systems Notes: My Normal Review Basic REVIEW OF SYSTEMS: CONSTITUTIONAL : Denies fever, chills, or sweats. Denies recent illness. CARDIOVASCULAR: Denies chest pain. RESPIRATORY: Denies cough, cold, or chest congestion. Denies shortness of breath, difficulty breathing, or wheezing. GASTROINTESTINAL: Denies abdominal pain. Denies nausea, vomiting, or diarrhea. MUSCULOSKELETAL: Low back pain, left hip pain, left shoulder pain SKIN: Denies rash or skin lesions. NEUROLOGICAL: Denies altered mental status or loss of consciousness. Denies headache. ALL OTHER SYSTEMS REVIEWED AND NEGATIVE. Physical Exam - Vital signs Vitals: Resp Pulse Ox 26 H 100 02/20/18 23:18 02/20/18 23:18 - Notes Notes: General Appearance: Well nourished, alert, cooperative, no acute distress, no obvious discomfort. Well-appearing. Vitals: reviewed, See vital signs table. Head: Wheezing or swelling to the head except for some bruising at the base of the chin which appears several days old. Eyes: PERRL, EOMI, Conjuctiva clear Mouth: No decreasd moisture Throat: No tonsillar inflammation, No airway obstruction, No lymphadenopathy Neck: Supple, no neck tenderness, no step-offs or deformities. Chest wall: No pain to palpation of the rib cage. Back: No pain to palpation of the back except for over the lumbar spine. There is no step-offs or deformities. Abdomen: Normal BS, soft, No rigidity, No abdominal tenderness, No guarding, no rebound, no abdominal masses, no organomegaly Extremities: strength 5/5 in all extremities, good pulses in all extremities, patient has bruising to the left shoulder. Does appear to be several days old as well. However, when I move her left shoulder she does have pain in it. No pain into the humerus elbow wrist or hand. Right extremities are nontender. Patient has pain to palpation of her lateral left hip. Some pain with motion of the left hip. No pain into the knee. Some pain into the left lower tibia- fibula area. There is some bruising and redness over this area. Skin: warm, dry, appropriate color, no rash Neuro: speech clear, oriented x 3, normal affect, responds appropriately to questions. Cranial nerves II through XII are intact. No new focal neurologic deficits on exam. Course - Re-evaluation Re-evalutation: 02/21/18 03:[address] scan does not show anything concerning. On exam she has good range of motion of the hips but still had some pain with the left hip and therefore we did do the x-ray and it was negative. She complains of back pain. On visual examination of her back she does not have any obvious deformity. There is no redness or swelling. CT scan showed appears to be a chronic deformity of the vertebral body. He also mentions a possible abnormality in the disc that they said could represent underlying discitis. I think is highly likely this patient has discitis as she has not had any procedures on her back in many years, she is non-IV drug abuser, she is does not have any recent fevers or infections. I do not feel that she needs an MRI to further investigate this as she has no clinical signs or symptoms of discussed other than back pain which has occurred because she fell onto her back. At this time I feel patient safe to be discharged home. At this time. States be discharged back to custodial. We will have her return to the ER immediately if she has fevers, worsening pain, headache, vomiting, or feels unwell. Patient currently has no headache or signs of swelling to the head and therefore I do not feel that she requires CT scan of the head. Dictation of this chart was performed using voice recognition software; therefore, there may be some unintended grammatical errors. - Vital Signs Vital signs: Temp Pulse Resp BP Pulse Ox 17 191/84 H 100 02/21/18 02:01 02/21/18 02:01 02/21/18 02:01 Discharge - Discharge Clinical Impression: Left hip pain Back pain Qualifiers: Back pain location: low back pain Chronicity: acute Back pain laterality: unspecified Sciatica presence: without sciatica Qualified Code(s): M54.5 - Low back pain Condition: Good Disposition: HOME, SELF-CARE Additional Instructions: Your xrays and CT scans did not show any evidence of a new fracture or injury. Your Ct scan shows a smal lucency in your vetebral disk which sometimes can indicate a disk infection; however, this is highly unlikely in your case as you do not have any fever or redness or warmth to your back. This is more likely a old finding in your back in relation to your previous back surgeries. Please still have a low threshold to return to the ER if you have fevers or worsening pain. Please ambulate with assistance only.
--- NOTE | 2018-02-21 00:14 | RADIOLOGY REPORT (SQ) ---
CLINICAL HISTORY: trauma COMPARISON: May 07, 2017. TECHNIQUE: XR SHOULDER 2 OR MORE VIEWS 02/20/2018 11:30 PM QUALITY CONTROL CHEMIST FINDINGS: There is no fracture. There is severe narrowing of the glenohumeral joint. There is mild narrowing of the acromioclavicular joint. There is elevation of the humeral head likely due to rotator cuff disease. Bones are osteopenic. Soft tissues are unremarkable. IMPRESSION: No definite fracture or dislocation.
--- NOTE | 2018-02-21 00:19 | RADIOLOGY REPORT (SQ) ---
CLINICAL HISTORY: trauma COMPARISON: None. TECHNIQUE: XR HIP 2 OR MORE VIEWS 02/20/2018 11:30 PM SCRIPT DEVELOPER FINDINGS: There is no fracture. There is mild narrowing of both hip joints. Soft tissues are unremarkable. IMPRESSION: No acute osseous findings.
--- NOTE | 2018-02-21 00:23 | RADIOLOGY REPORT (SQ) ---
CLINICAL HISTORY: trauma COMPARISON: None. TECHNIQUE: XR TIBIA FIBULA 2 VIEWS 02/20/2018 11:30 PM CELL BUILDER FINDINGS: There is no fracture. Total knee arthroplasty was performed. There are moderate vascular calcifications throughout the extremity. IMPRESSION: No acute osseous findings.
--- NOTE | 2018-02-21 00:37 | RADIOLOGY REPORT (SQ) ---
CLINICAL HISTORY: trauma COMPARISON: None. TECHNIQUE: CT LUMBAR SPINE WITHOUT IV CONTRAST on 02/20/2018 11:30 PM CUFF CUTTER This exam was performed according to our departmental dose-optimization program, which includes automated exposure control, adjustment of the mA and/or kV according to patient size and/or use of iterative reconstruction technique. FINDINGS: There is no acute fracture. Alignment is anatomic. There are severe degenerative changes throughout the lower lumbar facets. There is severe narrowing of the L2-3 disc with essentially fusion of the vertebral bodies. There is moderate narrowing of the L3-4 disc. At L4-5, there are mild irregularities of the involved endplates. There is moderate compression deformity of the L5 vertebral body with osteopenic changes throughout the upper endplate. There are multiple large ventral osteophytes throughout. Soft tissues are unremarkable. IMPRESSION: Moderate compression deformity of the L5 vertebral body which is age-indeterminate. Lucency of the upper endplate raises the possibility of infectious process within the L4-5 disc. Consider MRI with contrast.
[2018-02-21] MEDS ORDERED: HYDRALAZINE HCL 50 MG TABLET PO ONE (05:07)
[2018-02-21 06:47] VITALS: BP 165/81
== END 2018-02-21 06:47 | disposition home or self-care (01) ==
LOC: ER 23:10
DX: M25.552 Pain in left hip (principal); M54.5 Low back pain; M25.512 Pain in left shoulder; M79.605 Pain in left leg; W06.XXXA Fall from bed, initial encounter; Y92.122 Bedroom in nursing home as the place of occurrence of the external cause; I50.9 Heart failure, unspecified; I11.0 Hypertensive heart disease with heart failure; I25.10 Atherosclerotic heart disease of native coronary artery without angina pectoris; E11.9 Type 2 diabetes mellitus without complications
CPT/HCPCS: 99284; 73502; 73030; 73590; 72131; A9270

== ENCOUNTER 2018-04-23 20:36 | Emergency (ER) | payer MEDICARE, OTHER ==
--- NOTE | 2018-04-23 21:16 | ER Document Report ---
ED General - General Chief Complaint: Other Stated Complaint: CONGESTION Time Seen by Provider: 04/23/18 21:11 Primary Care Provider: Trav CAMPBELL MD [Primary Care Provider] - Follow up as needed Cannot obtain history due to: Dementia Notes: Patient is an 87-year-old female who presents from [facility] after receiving another patient's medications. She apparently received risperidone, Vimpat, and mirtazapine. The patient denies any complaints other than feeling somewhat sleepy. She was referred to the emergency department by the facility. Nothing is been noted to improve or worsen the patient's symptoms. Denies any similar issues in the past. TRAVEL OUTSIDE OF THE [place] IN LAST 30 DAYS: No - HPI Onset: Just prior to arrival Onset/Duration: Sudden Quality of pain: No pain Severity: None Pain Level: Denies Associated symptoms: None Exacerbated by: Denies Relieved by: Denies Similar symptoms previously: No Recently seen / treated by doctor: No - Related Data Allergies/Adverse Reactions: celecoxib [From Celebrex] Allergy (Intermediate, Verified 05/07/17 02:54) gabapentin [From Neurontin] Allergy (Intermediate, Verified 05/07/17 02:54) lamotrigine [From Lamictal] Allergy (Intermediate, Verified 05/07/17 02:54) meloxicam [From Mobic] Allergy (Intermediate, Verified 05/07/17 02:54) thiothixene [From Navane] Allergy (Intermediate, Verified 05/07/17 02:54) amoxicillin trihydrate [From Augmentin] Allergy (Unknown, Verified 05/07/17 02:54) citalopram hydrobromide [From Celexa] Allergy (Unknown, Verified 05/07/17 02:54) codeine [Codeine] Allergy (Unknown, Verified 05/07/17 02:54) divalproex sodium [From Depakote] Allergy (Unknown, Verified 05/07/17 02:54) hydrocodone bitartrate [From Lorcet 10/650] Allergy (Unknown, Verified 05/07/17 02:54) methocarbamol [From Robaxin] Allergy (Unknown, Verified 05/07/17 02:54) nabumetone [From Relafen] Allergy (Unknown, Verified 05/07/17 02:54) oxycodone [Oxycodone] Allergy (Unknown, Verified 05/07/17 02:54) Sulfa (Sulfonamide Antibiotics) Allergy (Unknown, Verified 05/07/17 02:54) terazosin [Terazosin] Allergy (Unknown, Verified 05/07/17 02:54) tramadol HCl [From Ultram] Allergy (Unknown, Verified 05/07/17 02:54) Past Medical History - General Information source: Patient Cannot obtain history due to: Dementia - Social History Smoking Status: Never Smoker Frequency of alcohol use: None Drug Abuse: None Lives with: Residential Family History: Reviewed & Not Pertinent, Other Patient has suicidal ideation: No Patient has homicidal ideation: No - Past Medical History Cardiac Medical History: Reports: Hx Congestive Heart Failure, Hx Coronary Artery Disease, Hx Heart Attack, Hx Hypercholesterolemia, Hx Hypertension Denies: Hx Heart Murmur Pulmonary Medical History: Reports: Hx Pneumonia Denies: Hx Respiratory Failure, Hx Sleep Apnea, Hx Tuberculosis Neurological Medical History: Reports: Hx Cerebrovascular Accident - Residual symptoms include left sided arm and leg numbness and weakness, Hx Seizures - "long time ago" Endocrine Medical History: Reports: Hx Diabetes Mellitus Type 2 Renal/ Medical History: Denies: Hx Peritoneal Dialysis Malignancy Medical History: GI Medical History: Denies: Hx Hiatal Hernia, Hx Pancreatitis, Hx Ulcer Musculoskeletal Medical History: Reports Hx Arthritis - osteo Psychiatric Medical History: Reports: Hx Anxiety, Hx Bipolar Disorder, Hx Dementia, Hx Depression, Hx Schizophrenia Traumatic Medical History: Infectious Medical History: Past Surgical History: Reports: Hx Appendectomy, Hx Cardiac Catheterization, Hx Cholecystectomy, Hx Hysterectomy, Hx Orthopedic Surgery - back surgery x 7, Hx Tonsillectomy - Immunizations Hx Diphtheria, Pertussis, Tetanus Vaccination: Yes Hx Pneumococcal Vaccination: 03/17/09 Review of Systems - Review of Systems Notes: Constitutional: Negative for fever. HENT: Negative for sore throat. Eyes: Negative for visual changes. Cardiovascular: Negative for chest pain. Respiratory: Negative for shortness of breath. Gastrointestinal: Negative for abdominal pain, vomiting or diarrhea. Genitourinary: Negative for dysuria. Musculoskeletal: Negative for back pain. Skin: Negative for rash. Neurological: Negative for headaches, weakness or numbness. 10 point ROS negative except as marked above and in HPI. Physical Exam - Vital signs Vitals: Temp Pulse BP Pulse Ox 98.6 F 76 156/66 H 99 04/23/18 20:46 04/23/18 20:46 04/23/18 20:46 04/23/18 20:46 Interpretation: Hypertensive Notes: PHYSICAL EXAMINATION: GENERAL: Well-appearing, well-nourished and in no acute distress. HEAD: Atraumatic, normocephalic. EYES: Pupils equal round and reactive to light, extraocular movements intact, sclera anicteric, conjunctiva are normal. ENT: nares patent, oropharynx clear without exudates. Moist mucous membranes. NECK: Normal range of motion, supple without lymphadenopathy LUNGS: Breath sounds clear to auscultation bilaterally and equal. No wheezes rales or rhonchi. HEART: Regular rate and rhythm without murmurs ABDOMEN: Soft, nontender, normoactive bowel sounds. No guarding, no rebound. No masses appreciated. EXTREMITIES: Normal range of motion, no pitting or edema. No cyanosis. NEUROLOGICAL: No focal neurological deficits. Moves all extremities spontaneous ly and on command. PSYCH: Normal mood, normal affect. SKIN: Warm, Dry, normal turgor, no rashes or lesions noted. Course - Re-evaluation Re-evalutation: 04/23/18 21:14 Patient is here without any complaints after being given another patient's medications. She is at mental status baseline, not obtunded, protecting her without difficulty. Vitals within acceptable limits. I do not see an indication for workup at this point. Will discharge back to assisted living facility with return precautions. - Vital Signs Vital signs: Temp Pulse Resp BP Pulse Ox 98.6 F 68 16 120/57 L 97 04/23/18 22:41 04/23/18 22:41 04/23/18 22:41 04/23/18 22:41 04/23/18 22:41 Discharge - Discharge Clinical Impression: Medication error Condition: Stable Disposition: HOME-ASSISTED LIVING Additional Instructions: Return for any additional concerns you may have. Referrals: Trav CAMPBELL MD [Primary Care Provider] - Follow up as needed
[2018-04-23 22:42] VITALS: BP 120/57
== END 2018-04-23 22:42 | disposition home health service (06) ==
LOC: ER 20:36
DX: T43.591A Poisoning by other antipsychotics and neuroleptics, accidental (unintentional), initial encounter (principal); T43.021A Poisoning by tetracyclic antidepressants, accidental (unintentional), initial encounter; Y92.129 Unspecified place in nursing home as the place of occurrence of the external cause; I50.9 Heart failure, unspecified; I11.0 Hypertensive heart disease with heart failure; I25.10 Atherosclerotic heart disease of native coronary artery without angina pectoris; I25.2 Old myocardial infarction; E78.00 Pure hypercholesterolemia, unspecified; Z86.73 Personal history of transient ischemic attack (TIA), and cerebral infarction without residual deficits; E11.9 Type 2 diabetes mellitus without complications; Z90.49 Acquired absence of other specified parts of digestive tract; Z90.710 Acquired absence of both cervix and uterus
CPT/HCPCS: 99284

== ENCOUNTER 2018-04-24 08:53 | Emergency (ER) | payer MEDICARE, OTHER ==
[2018-04-24] MEDS ORDERED: NALOXONE HCL INJ/PF 0.4 MG/1 ML SDV IV ONE (09:58)
--- NOTE | 2018-04-24 10:52 | RADIOLOGY REPORT (SQ) ---
EXAM DESCRIPTION: CHEST SINGLE VIEW COMPLETED DATE/TIME: 04/24/2018 10:43 am REASON FOR STUDY: SOB COMPARISON: 06/20/2017 EXAM PARAMETERS: NUMBER OF VIEWS: One view. TECHNIQUE: Single frontal radiographic view of the chest acquired. RADIATION DOSE: NA LIMITATIONS: AP portable FINDINGS: LUNGS AND PLEURA: No opacities, masses or pneumothorax. No pleural effusion. MEDIASTINUM AND HILAR STRUCTURES: No masses. Contour normal. HEART AND VASCULAR STRUCTURES: Heart normal in size for technique. Normal vasculature. BONES: No acute findings. HARDWARE: None in the chest. OTHER: No other significant finding. IMPRESSION: NO ACUTE RADIOGRAPHIC FINDING IN THE CHEST. TECHNICAL DOCUMENTATION: JOB ID: [id number] [employer]- All Rights Reserved Reading location - IP/workstation name: [email or web address]
[2018-04-24 11:52] LABS: ABSOLUTE BASOPHILS # (AUTO) 0.1 10^3/uL (0.0-0.2); ABSOLUTE EOSINOPHILS # (AUTO) 0.1 10^3/uL (0.0-0.6); ABSOLUTE LYMPHOCYTES (AUTO) 0.7 10^3/uL (0.5-4.7); ABSOLUTE MONOCYTES (AUTO) 0.5 10^3/uL (0.1-1.4); ABSOLUTE NEUT (AUTO) 8.4 10^3/uL (1.7-8.2); BASOPHILS % (AUTO) 0.5 % (0-2); EOSINOPHILS % (AUTO) 0.7 % (0-6); HEMATOCRIT 33.6 % (36.0-47.0); HEMOGLOBIN 11.5 g/dL (12.0-15.5); LYMPHOCYTES % (AUTO) 7.2 % (13-45); MEAN CORPUSCULAR HEMOGLOBIN 31.4 pg (27.0-33.4); MEAN CORPUSCULAR HGB CONC 34.3 g/dL (32.0-36.0); MEAN CORPUSCULAR VOLUME 91 fl (80-97); MONOCYTES % (AUTO) 5.5 % (3-13); PLATELET COUNT 231 10^3/uL (150-450); RED BLOOD COUNT 3.68 10^6/uL (3.72-5.28); RED CELL DISTRIBUTION WIDTH 13.2 % (11.5-14.0); SEGMENTED NEUTROPHILS % (AUTO) 86.1 % (42-78); TOTAL CELLS COUNTED % (AUTO) 100 %; WHITE BLOOD COUNT 9.8 10^3/uL (4.0-10.5)
--- NOTE | 2018-04-24 12:01 | RADIOLOGY REPORT (SQ) ---
EXAM DESCRIPTION: CT HEAD WITHOUT COMPLETED DATE/TIME: 04/24/2018 11:50 am REASON FOR STUDY: lethargy COMPARISON: 08/05/2017 TECHNIQUE: Axial images acquired through the brain without intravenous contrast. Images reviewed wi th bone, brain and subdural windows. Additional sagittal and coronal reconstructions were generated. Images stored on PACS. All CT scanners at this facility use dose modulation, iterative reconstruction, and/or weight based d osing when appropriate to reduce radiation dose to as low as reasonably achievable (ALARA). [facility]: Dose Right [facility]: CareDose [facility]: Dose Right [facility]: Teradose 4D [facility]: Smart Lulu RADIATION DOSE: CT Rad equipment meets quality standard of care and radiation dose reduction techniq ues were employed. CTDIvol: 53.2 mGy. DLP: 991 mGy-cm. mGy. LIMITATIONS: None. FINDINGS: VENTRICLES: Normal size and contour. CEREBRUM: No masses. No hemorrhage. No midline shift. No evidence for acute infarction. Few scatte red areas of low density in the white matter most likely chronic small vessel ischemic changes. CEREBELLUM: No masses. No hemorrhage. No alteration of density. No evidence for acute infarction. EXTRAAXIAL SPACES: No fluid collections. No masses. ORBITS AND GLOBE: No intra- or extraconal masses. Normal contour of globe without masses. CALVARIUM: No fracture. PARANASAL SINUSES: No fluid or mucosal thickening. SOFT TISSUES: No mass or hematoma. OTHER: No other significant finding. IMPRESSION: NO ACUTE INTRACRANIAL IMAGING FINDINGS. EVIDENCE OF ACUTE STROKE: NO. COMMENT: Quality ID # [id number]: Final reports with documentation of one or more dose reduction techniques (e.g., Automated exposure control, adjustment of the mA and/or kV according to patient size, use of iterative reconstruction technique) TECHNICAL DOCUMENTATION: JOB ID: [id number]- All Rights Reserved Reading location - IP/workstation name: [email or web address]
[2018-04-24 12:06] LABS: APPEARANCE,URINE CLOUDY; BILIRUBIN,URINE NEGATIVE (NEGATIVE); COLOR,URINE YELLOW; GLUCOSE, URINE NEGATIVE (NEGATIVE); KETONES,URINE NEGATIVE (NEGATIVE); LEUKOCYTE ESTERASE,URINE LARGE (NEGATIVE); NITRITE,URINE POSITIVE (NEGATIVE); PROTEIN,URINE 30 mg/dL (NEGATIVE); URINE SPECIFIC GRAVITY 1.011
[2018-04-24 12:15] LABS: URINE AMPHETAMINES SCREEN NEGATIVE; URINE BARBITURATES SCREEN NEGATIVE; URINE BENZODIAZEPINES SCREEN NEGATIVE; URINE COCAINE SCREEN NEGATIVE; URINE MARIJUANA (THC) SCREEN NEGATIVE; URINE METHADONE SCREEN NEGATIVE; URINE PHENCYCLIDINE SCREEN NEGATIVE
[2018-04-24 12:16] LABS: ALANINE AMINOTRANSFERASE 22 U/L (9-52); ALBUMIN 3.6 g/dL (3.5-5.0); ALKALINE PHOSPHATASE 99 U/L (38-126); ANION GAP 8 (5-19); ASPARTATE AMINO TRANSFERASE 20 U/L (14-36); BILIRUBIN,DIRECT 0.2 mg/dL (0.0-0.4); BILIRUBIN,TOTAL 0.3 mg/dL (0.2-1.3); BLOOD UREA NITROGEN 37 mg/dL (7-20); CALCIUM 9.1 mg/dL (8.4-10.2); CARBON DIOXIDE 22 mmol/L (22-30); CHLORIDE 108 mmol/L (98-107); GLUCOSE 173 mg/dL (75-110); POTASSIUM 4.9 mmol/L (3.6-5.0); SODIUM 138.4 mmol/L (137-145)
[2018-04-24 12:17] LABS: ACETAMINOPHEN < 10 ug/mL (10-30); SALICYLATE < 1.0 mg/dL (2.0-20.0)
[2018-04-24] MEDS ORDERED: CEFTRIAXONE 1 GM/D5W RTU 1 GM/50 ML RTUPB IV ONE (12:40)
--- NOTE | 2018-04-24 12:58 | EKG REPORT ---
SEVERITY:- ABNORMAL ECG - SINUS RHYTHM CONSIDER LEFT VENTRICULAR HYPERTROPHY BORDERLINE PROLONGED QT INTERVAL 1ST DEGREE AV BLOCK : Confirmed by: Elliott Kelley 24-Apr-2018 12:57:36
[2018-04-24 15:10] VITALS: BP 197/93
--- NOTE | 2018-04-24 15:13 | ER Document Report ---
ED General - General Chief Complaint: Altered Mental Status Stated Complaint: UNRESPONSIVE Time Seen by Provider: 04/24/18 09:43 Primary Care Provider: Trav CAMPBELL MD [Primary Care Provider] - Follow up as needed Notes: Patient is an 87-year-old female presents to the emergency department via EMS for lethargy and unresponsive. According to staff at [facility] the patient's was seen at this facility last evening around 8:00 for a medication error. Staff states they gave the patient someone else's prescribed meds. It is documented the patient got Risperidone, Remeron, Vimpat. Per provider note last evening patient has no complaints and was discharged back to the facility. Facility states this morning they were able to give the patient her morning medications and set her up at breakfast. States they then noticed that the patient appeared to be unresponsive. Per report from staff at nursing facility patient did not have radial pulses and had a very weak apical pulse noted. Upon EMS arrival the patient was alert to her name with a pulse rate of 57 and a blood pressure of 82/44. per notes from [facility] patient is somewhat confused with clear speech and uses a wheelchair. She is a full code. Upon my examination of the patient she can say her name but otherwise does not know where she is, the current date or time or any current events. Past medical history: Hypertension, hyperlipidemia, bipolar, depression, dementia, diabetes, GERD Medications: Abilify, aspirin, Aricept, TriCor, hydralazine, NovoLog, isosorbide, Prevacid, Paxil, Crestor, valsartan, amlodipine, Levemir Allergies: Gabapentin, Celebrex, Neurontin, Lamictal, Mobic, penicillin, Celexa, codeine, Depakote, oxycodone, sulfa, Ultram TRAVEL OUTSIDE OF THE [place] IN LAST 30 DAYS: No - Related Data Allergies/Adverse Reactions: celecoxib [From Celebrex] Allergy (Intermediate, Verified 05/07/17 02:54) gabapentin [From Neurontin] Allergy (Intermediate, Verified 05/07/17 02:54) lamotrigine [From Lamictal] Allergy (Intermediate, Verified 05/07/17 02:54) meloxicam [From Mobic] Allergy (Intermediate, Verified 05/07/17 02:54) thiothixene [From Navane] Allergy (Intermediate, Verified 05/07/17 02:54) amoxicillin trihydrate [From Augmentin] Allergy (Unknown, Verified 05/07/17 02:54) citalopram hydrobromide [From Celexa] Allergy (Unknown, Verified 05/07/17 02:54) codeine [Codeine] Allergy (Unknown, Verified 05/07/17 02:54) divalproex sodium [From Depakote] Allergy (Unknown, Verified 05/07/17 02:54) hydrocodone bitartrate [From Lorcet 10/650] Allergy (Unknown, Verified 05/07/17 02:54) methocarbamol [From Robaxin] Allergy (Unknown, Verified 05/07/17 02:54) nabumetone [From Relafen] Allergy (Unknown, Verified 05/07/17 02:54) oxycodone [Oxycodone] Allergy (Unknown, Verified 05/07/17 02:54) Sulfa (Sulfonamide Antibiotics) Allergy (Unknown, Verified 05/07/17 02:54) terazosin [Terazosin] Allergy (Unknown, Verified 05/07/17 02:54) tramadol HCl [From Ultram] Allergy (Unknown, Verified 05/07/17 02:54) Past Medical History - General Information source: Transfer Record, Emergency Med Personnel - Social History Smoking Status: Unknown if Ever Smoked Family History: Reviewed & Not Pertinent, Other Patient has suicidal ideation: No Patient has homicidal ideation: No - Past Medical History Cardiac Medical History: Reports: Hx Congestive Heart Failure, Hx Coronary Artery Disease, Hx Heart Attack, Hx Hypercholesterolemia, Hx Hypertension Denies: Hx Heart Murmur Pulmonary Medical History: Reports: Hx Pneumonia Denies: Hx Respiratory Failure, Hx Sleep Apnea, Hx Tuberculosis Neurological Medical History: Reports: Hx Cerebrovascular Accident - Residual symptoms include left sided arm and leg numbness and weakness, Hx Seizures - "long time ago" Endocrine Medical History: Reports: Hx Diabetes Mellitus Type 2 Renal/ Medical History: Denies: Hx Peritoneal Dialysis Malignancy Medical History: GI Medical History: Denies: Hx Hiatal Hernia, Hx Pancreatitis, Hx Ulcer Musculoskeletal Medical History: Reports Hx Arthritis - osteo Psychiatric Medical History: Reports: Hx Anxiety, Hx Bipolar Disorder, Hx Dementia, Hx Depression, Hx Schizophrenia Traumatic Medical History: Infectious Medical History: Past Surgical History: Reports: Hx Appendectomy, Hx Cardiac Catheterization, Hx Cholecystectomy, Hx Hysterectomy, Hx Orthopedic Surgery - back surgery x 7, Hx Tonsillectomy - Immunizations Hx Diphtheria, Pertussis, Tetanus Vaccination: Yes Hx Pneumococcal Vaccination: 03/17/09 Review of Systems - Review of Systems Constitutional: No symptoms reported EENT: No symptoms reported Cardiovascular: No symptoms reported Respiratory: No symptoms reported Gastrointestinal: No symptoms reported Genitourinary: No symptoms reported Female Genitourinary: No symptoms reported Musculoskeletal: No symptoms reported Skin: No symptoms reported Hematologic/Lymphatic: No symptoms reported Neurological/Psychological: See HPI Physical Exam - Vital signs Vitals: Resp Pulse Ox 22 H 100 04/24/18 08:58 04/24/18 08:58 - Notes Notes: GENERAL: Alert, interacts well. No acute distress. Is able to tell staff her name. HEAD: Normocephalic, atraumatic. EYES: Pupils 2 mm, reactive to light.. Extraocular movements intact. ENT: Oral mucosa moist, tongue midline. NECK: Full range of motion. Supple. Trachea midline. LUNGS: Clear to auscultation bilaterally, no wheezes, rales, or rhonchi. No respiratory distress. HEART: Regular rate and rhythm. No murmur ABDOMEN: Soft, non-tender. Non-distended. Bowel sounds present in all 4 quadrants. EXTREMITIES: Moves all 4 extremities spontaneously. No edema, normal radial and dorsalis pedis pulses bilaterally. No cyanosis. NEUROLOGICAL: Alert and oriented to self PSYCH: Normal affect, normal mood. SKIN: Warm, dry, normal turgor. No rashes or lesions noted. Course - Re-evaluation Re-evalutation: Patient case was initially discussed with poison control Jessica Bauer #[id number] at 10:13 AM. She states that it is unlikely patient's lethargy is due to the medication she was administered last evening. Discussed looking for another source. Patient's pupils do appear to be 2 mm and reactive to light. It is seen on patient's medication list that she does take hydrocodone. Narcan was administered with no change in patient's mental status. Patient was administered fluids in the emergency room. Upon my reassessment after fluid administration. Is now able to tell me that she is in the hospital. She is able to tell me that there are 4 quarters in a dollar. She is able to tell me her full first and last name. Nursing staff discussed patient's mental state with staff at [facility] who states it appears that the patient is currently mentally at her baseline. Patient's labs revealed no signs of leukocytosis, Patient is afebrile in the emergency room. Her labs revealed no signs of electrolyte abnormalities. Patient's kidney function does appear to be elevated but in reviewing past charts it always appears to be somewhat elevated. Patient's urine does show signs of urinary tract infection, will send for culture. Patient's urine drug tox was negative. Patient's head CT was also negative for intracranial bleeding or CVA. Patient's chest x-ray was negative for pneumonia, pneumothorax, rib fractures. Patient's twelve-lead does show a heart rate of 56 with a first-degree AV block, borderline prolonged QT interval at 491, no ST segment elevations or depressions noted. - Vital Signs Vital signs: Temp Pulse Resp BP Pulse Ox 97.5 F 13 197/93 H 100 04/24/18 11:01 04/24/18 15:00 04/24/18 14:31 04/24/18 15:00 - Laboratory Result Diagrams: 04/24/18 11:25 04/24/18 11:25 Laboratory results interpreted by me: 04/24/18 04/24/18 04/24/18 11:25 11:25 11:26 RBC 3.68 L Hgb 11.5 L Hct 33.6 L Seg Neutrophils % 86.1 H Lymphocytes % 7.2 L Absolute Neutrophils 8.4 H Chloride 108 H BUN 37 H Creatinine 1.29 H Est GFR ( Amer) 47 L Est GFR (Non-Af Amer) 39 L Glucose 173 H Total Protein 6.0 L Urine Protein 30 H Urine Nitrite POSITIVE H Urine Urobilinogen 2.0 H Ur Leukocyte Esterase LARGE H Salicylates < 1.0 L Acetaminophen < 10 L Discharge - Discharge Clinical Impression: Urinary tract infection Qualifiers: Urinary tract infection type: acute cystitis Hematuria presence: without hematuria Qualified Code(s): N30.00 - Acute cystitis without hematuria Condition: Stable Disposition: HOME, SELF-CARE Instructions: Cephalexin ([facility]), Urinary Tract Infection ([facility]) Additional Instructions: As we discussed you have been seen and treated in the emergency department for a urinary tract infection. Please take antibiotics as prescribed and drink plenty of fluids. Please follow-up with your primary care provider in the next 24-48 hours. Please return to the emergency room for any other concerning symptoms. Prescriptions: Cephalexin Monohydrate [Keflex 500 mg Capsule] 500 mg PO QID 10 Days capsule Referrals: Trav CAMPBELL MD [Primary Care Provider] - Follow up as needed
== END 2018-04-24 18:07 | disposition home or self-care (01) ==
LOC: ER 08:53
DX: N30.00 Acute cystitis without hematuria (principal); R53.83 Other fatigue; I44.0 Atrioventricular block, first degree; I10 Essential (primary) hypertension; E11.9 Type 2 diabetes mellitus without complications; I25.10 Atherosclerotic heart disease of native coronary artery without angina pectoris; E78.00 Pure hypercholesterolemia, unspecified; E78.5 Hyperlipidemia, unspecified; F31.9 Bipolar disorder, unspecified; K21.9 Gastro-esophageal reflux disease without esophagitis; Z79.899 Other long term (current) drug therapy; Z79.82 Long term (current) use of aspirin; Z79.4 Long term (current) use of insulin; Z79.891 Long term (current) use of opiate analgesic; Z88.6 Allergy status to analgesic agent; Z88.8 Allergy status to other drugs, medicaments and biological substances; Z88.0 Allergy status to penicillin; Z88.5 Allergy status to narcotic agent; Z88.2 Allergy status to sulfonamides
CPT/HCPCS: 93005; 99285; 96375; 96365; 36415; 87040; 87086; 80307 ×3; 85025; 87088; 80053; 81001; 84484; 87186; 71045; 70450; 93010; J2310; J0696

== ENCOUNTER 2018-11-23 09:23 | Inpatient (IN) | payer MEDICARE ==
[2018-11-23 09:40] LABS: ABSOLUTE BASOPHILS # (AUTO) 0.1 10^3/uL (0.0-0.2); ABSOLUTE EOSINOPHILS # (AUTO) 0.2 10^3/uL (0.0-0.6); ABSOLUTE LYMPHOCYTES (AUTO) 2.3 10^3/uL (0.5-4.7); ABSOLUTE MONOCYTES (AUTO) 1.2 10^3/uL (0.1-1.4); ABSOLUTE NEUT (AUTO) 7.9 10^3/uL (1.7-8.2); BASOPHILS % (AUTO) 0.7 % (0-2); EOSINOPHILS % (AUTO) 1.7 % (0-6); HEMATOCRIT 35.2 % (36.0-47.0); HEMOGLOBIN 11.8 g/dL (12.0-15.5); LYMPHOCYTES % (AUTO) 19.8 % (13-45); MEAN CORPUSCULAR HEMOGLOBIN 30.3 pg (27.0-33.4); MEAN CORPUSCULAR HGB CONC 33.5 g/dL (32.0-36.0); MEAN CORPUSCULAR VOLUME 90 fl (80-97); PLATELET COUNT 339 10^3/uL (150-450); RED BLOOD COUNT 3.89 10^6/uL (3.72-5.28); RED CELL DISTRIBUTION WIDTH 13.8 % (11.5-14.0); SEGMENTED NEUTROPHILS % (AUTO) 67.8 % (42-78); TOTAL CELLS COUNTED % (AUTO) 100 %; WHITE BLOOD COUNT 11.7 10^3/uL (4.0-10.5)
[2018-11-23 10:01] LABS: ALBUMIN 3.9 g/dL (3.5-5.0); ALKALINE PHOSPHATASE 72 U/L (38-126); ANION GAP 11 (5-19); ASPARTATE AMINO TRANSFERASE 21 U/L (14-36); BILIRUBIN,DIRECT 0.3 mg/dL (0.0-0.4); BILIRUBIN,TOTAL 0.3 mg/dL (0.2-1.3); BLOOD UREA NITROGEN 34 mg/dL (7-20); CARBON DIOXIDE 25 mmol/L (22-30); CHLORIDE 107 mmol/L (98-107); POTASSIUM 3.8 mmol/L (3.6-5.0)
[2018-11-23 10:02] LABS: ALCOHOL < 10 mg/dL (NONE DETECTED)
[2018-11-23 10:11] LABS: GLUCOSE 31 mg/dL (75-110)
[2018-11-23] MEDS ORDERED: DEXTROSE 5%-1/2 NORMAL SALINE 500 ML IV ONE (10:28)
[2018-11-23 10:33] LABS: APPEARANCE,URINE CLOUDY; BILIRUBIN,URINE NEGATIVE (NEGATIVE); COLOR,URINE YELLOW; GLUCOSE, URINE NEGATIVE (NEGATIVE); KETONES,URINE NEGATIVE (NEGATIVE); LEUKOCYTE ESTERASE,URINE LARGE (NEGATIVE); NITRITE,URINE POSITIVE (NEGATIVE); PROTEIN,URINE 100 mg/dL (NEGATIVE); URINE SPECIFIC GRAVITY 1.013; UROBILINOGEN,URINE NEGATIVE mg/dL (<2.0)
[2018-11-23] MEDS ORDERED: HYDRALAZINE HCL INJ/PF 20 MG/1 ML SDV IV ONE (10:36)
--- NOTE | 2018-11-23 10:37 | ER Document Report ---
ED General - General Chief Complaint: Urinary Problem Stated Complaint: ALTERED MENTAL STATUS Time Seen by Provider: 11/23/18 09:59 Primary Care Provider: Trav CAMPBELL MD [Primary Care Provider] - Follow up as needed Notes: Chief complaint: Altered mentation History of complain:( obtained from----patient) 87 years old female with a history of diabetes, dementia, living in a longterm, was seen by the longterm staff as unresponsive, called the EMS. EMS found a blood sugar to be 35, gave oral glucose and brought her to the ED.. On arrival her blood sugar was 120, she was alert was able to open her eyes and respond. Due to dementia no history could be obtained from her. Onset: As above Duration: Just prior to arrival Severity: Mild to moderate Quality: Unknown Context: Unknown Exacerbating factor and relieving factors: Unknown REVIEW OF SYSTEMS: Not possible to obtain as she is demented due to Alzheimer's. PHYSICAL EXAMINATION: GENERAL: Well-appearing, well-nourished and in no acute distress. Opening her eyes and looking around. Answering questions but not appropriately. HEAD: Atraumatic, normocephalic. EYES: Pupils equal round and reactive to light, extraocular movements intact, conjunctiva are normal. ENT: Nares patent, oropharynx clear without exudates. Moist mucous membranes. NECK: Normal range of motion, supple without lymphadenopathy LUNGS: Breath sounds clear to auscultation bilaterally and equal. No wheezes rales or rhonchi. HEART: Regular rate and rhythm without murmurs ABDOMEN: Soft, nontender, nondistended abdomen. No guarding, no rebound. No m asses appreciated. Examination of genitals-deferred Musculoskeletal: NEUROLOGICAL: Cranial nerves grossly intact. Alert but not oriented PSYCH: Not applicable SKIN: Warm, Dry, normal turgor, no rashes or lesions noted. Dictation was performed using [employer] voice recognition software TRAVEL OUTSIDE OF THE [place] IN LAST 30 DAYS: No - Related Data Allergies/Adverse Reactions: celecoxib [From Celebrex] Allergy (Intermediate, Verified 05/07/17 02:54) gabapentin [From Neurontin] Allergy (Intermediate, Verified 05/07/17 02:54) lamotrigine [From Lamictal] Allergy (Intermediate, Verified 05/07/17 02:54) meloxicam [From Mobic] Allergy (Intermediate, Verified 05/07/17 02:54) thiothixene [From Navane] Allergy (Intermediate, Verified 05/07/17 02:54) amoxicillin trihydrate [From Augmentin] Allergy (Unknown, Verified 05/07/17 02:54) citalopram hydrobromide [From Celexa] Allergy (Unknown, Verified 05/07/17 02:54) codeine [Codeine] Allergy (Unknown, Verified 05/07/17 02:54) divalproex sodium [From Depakote] Allergy (Unknown, Verified 05/07/17 02:54) hydrocodone bitartrate [From Lorcet 10/650] Allergy (Unknown, Verified 05/07/17 02:54) methocarbamol [From Robaxin] Allergy (Unknown, Verified 05/07/17 02:54) nabumetone [From Relafen] Allergy (Unknown, Verified 05/07/17 02:54) oxycodone [Oxycodone] Allergy (Unknown, Verified 05/07/17 02:54) Sulfa (Sulfonamide Antibiotics) Allergy (Unknown, Verified 05/07/17 02:54) terazosin [Terazosin] Allergy (Unknown, Verified 05/07/17 02:54) tramadol HCl [From Ultram] Allergy (Unknown, Verified 05/07/17 02:54) Past Medical History - Social History Smoking Status: Unknown if Ever Smoked Chew tobacco use (# tins/day): No Frequency of alcohol use: None Drug Abuse: None Lives with: [facility] Family History: Reviewed & Not Pertinent, Other Patient has suicidal ideation: No Patient has homicidal ideation: No - Past Medical History Cardiac Medical History: Reports: Hx Congestive Heart Failure, Hx Coronary Artery Disease, Hx Heart Attack, Hx Hypercholesterolemia, Hx Hypertension Denies: Hx Heart Murmur Pulmonary Medical History: Reports: Hx Pneumonia Denies: Hx Respiratory Failure, Hx Sleep Apnea, Hx Tuberculosis Neurological Medical History: Reports: Hx Cerebrovascular Accident - Residual symptoms include left sided arm and leg numbness and weakness, Hx Seizures - "long time ago" Endocrine Medical History: Reports: Hx Diabetes Mellitus Type 2 Renal/ Medical History: Denies: Hx Peritoneal Dialysis Malignancy Medical History: GI Medical History: Denies: Hx Hiatal Hernia, Hx Pancreatitis, Hx Ulcer Musculoskeletal Medical History: Reports Hx Arthritis - osteo, Denies Hx Systemic Lupus Erythematosus Psychiatric Medical History: Reports: Hx Anxiety, Hx Bipolar Disorder, Hx De mentia, Hx Depression, Hx Schizophrenia Traumatic Medical History: Infectious Medical History: Past Surgical History: Reports: Hx Appendectomy, Hx Cardiac Catheterization, Hx Cholecystectomy, Hx Hysterectomy, Hx Orthopedic Surgery - back surgery x 7, Hx Tonsillectomy - Immunizations Hx Diphtheria, Pertussis, Tetanus Vaccination: Yes Hx Pneumococcal Vaccination: 03/17/09 Review of Systems - Review of Systems Notes: Dictated -: Yes ROS unobtainable due to patient's medical condition Physical Exam - Vital signs Vitals: Pulse Ox 100 11/23/18 09:27 - Notes Notes: Dictated Course - Re-evaluation Re-evalutation: 11/23/18 12:45 Case was discussed with hospital service and currently being admitted. - Vital Signs Vital signs: Temp Pulse Resp BP Pulse Ox 97.7 F 19 165/57 H 100 11/23/18 10:15 11/23/18 11:20 11/23/18 11:20 11/23/18 11:20 - Laboratory Result Diagrams: 11/23/18 08:43 11/23/18 08:43 Laboratory results interpreted by me: 11/23/18 11/23/18 11/23/18 08:43 08:43 09:50 WBC 11.7 H Hgb 11.8 L Hct 35.2 L BUN 34 H Est GFR ( Amer) 49 L Est GFR (MDRD) Non-Af 41 L Glucose 31 L* POC Glucose Urine Protein 100 H Urine Nitrite POSITIVE H Ur Leukocyte Esterase LARGE H 11/23/18 09:53 WBC Hgb Hct BUN Est GFR ( Amer) Est GFR (MDRD) Non-Af Glucose POC Glucose 122 H Urine Protein Urine Nitrite Ur Leukocyte Esterase - Diagnostic Test Radiology reviewed: Reports reviewed - EKG Interpretation by Me EKG shows normal: Sinus rhythm - Sinus rhythm at the rate of 55 bpm normal axis no acute ST elevation ST depression T wave inversion noted. Discharge - Discharge Clinical Impression: Hypoglycemia UTI (urinary tract infection) Qualifiers: Urinary tract infection type: acute cystitis Hematuria presence: without hematuria Qualified Code(s): N30.00 - Acute cystitis without hematuria Mental status alteration Qualifiers: Altered mental status type: unspecified Qualified Code(s): R41.82 - Altered mental status, unspecified Condition: Fair Admitting Provider: Nicole (Hospitalist) Referrals: Trav CAMPBELL MD [Primary Care Provider] - Follow up as needed
[2018-11-23 10:45] LABS: URINE AMPHETAMINES SCREEN NEGATIVE; URINE BARBITURATES SCREEN NEGATIVE; URINE BENZODIAZEPINES SCREEN NEGATIVE; URINE COCAINE SCREEN NEGATIVE; URINE MARIJUANA (THC) SCREEN NEGATIVE; URINE METHADONE SCREEN NEGATIVE; URINE PHENCYCLIDINE SCREEN NEGATIVE
--- NOTE | 2018-11-23 13:35 | PDOC H&P ---
History of Present Illness Admission Date/PCP: Trav CAMPBELL MD Patient is an 87-year-old female who was admitted through the emergency room for altered mental status and possible UTI History of Present Illness: LUAN MYRICK is a 87 year old female who comes from [facility] home in [facility] [place] [facility] [place] with hypoglycemia, altered mental status, and possible UTI. Patient has a history of dementia as well evidently at the jail patient was found to have a blood sugar of 35. When she was picked up by EMS they gave her some oral glucose and by the time she arrived in the ER her sugar was 120. Temperature however was 96.5 rectal patient's urine has a large amount of leukocytes positive nitrates and positive protein. Patient will be admitted to the hospital for hypoglycemia, possible UTI, altered mental status, dementia Past Medical History Cardiac Medical History: Reports: Congestive Heart Failure, Coronary Artery Disease, Myocardial Infarction, Hyperlipidema, Hypertension Denies: Heart Murmur Pulmonary Medical History: Reports: Pneumonia Denies: Respiratory Failure, Sleep Apnea, Tuberculosis Neurological Medical History: Reports: Seizures - "long time ago" Endocrine Medical History: Reports: Diabetes Mellitus Type 2 Renal/ Medical History: Malignancy Medical History: GI Medical History: Denies: Hiatal Hernia Musculoskeltal Medical History: Reports: Arthritis - osteo Psychiatric Medical History: Reports: Bipolar Disorder, Dementia, Depression Hematology: Denies: Anemia, Hemophilia, Sickle Cell Disease Infectious Medical History: Past Surgical History Past Surgical History: Reports: Appendectomy, Cardiac Catheterization, Cholecystectomy, Hysterectomy, Orthopedic Surgery - back surgery x 7, Tonsillectomy Denies: Amputation Social History Lives with: [facility] Smoking Status: Unknown if Ever Smoked Frequency of Alcohol Use: None Hx Recreational Drug Use: No Drugs: None Hx Prescription Drug Abuse: No - Advance Directive Resuscitation Status: Full Code Family History Family History: Reviewed & Not Pertinent, Other Parental Family History Reviewed: No Children Family History Reviewed: No Sibling(s) Family History Reviewed.: No Medication/Allergy Home Medications: Aripiprazole [Abilify 5 mg Tablet] 10 mg PO DAILY 06/24/17 Aspirin [Aspirin 81 mg Chewable Tablet] 81 mg PO DAILY 06/24/17 Calcium Carbonate/Vitamin D3 [Os-Tye 250 mg with Vitamin D 125 Units] 1 tab PO DAILY 06/24/17 Donepezil HCl [Aricept 5 mg Tablet] 10 mg PO QHS 06/24/17 Fenofibrate Nanocrystallized [Tricor 48 mg Tablet] 48 mg PO DAILY 06/24/17 Ferrous Sulfate [Feosol 325 mg Tablet] 325 mg PO Q12 06/24/17 Hydralazine HCl [Apresoline 50 mg Tablet] 50 mg PO Q8 06/24/17 Insulin Aspart [Novolog Flexpen] 0 unit SUBCUT .SLD SCALE 06/24/17 Isosorbide Mononitrate [Isosorbide Mononitrate ER] 30 mg PO DAILY 06/24/17 Lansoprazole [Prevacid 30 mg Odt Tablet] 30 mg PO Q6AM 06/24/17 Paroxetine HCl [Paxil 20 mg Tablet] 40 mg PO DAILY 06/24/17 Ranolazine [Ranexa 500 mg Tab.sr] 500 mg PO Q12 06/24/17 Rosuvastatin Calcium [Crestor 20 mg Tablet] 20 mg PO QHS 06/24/17 Valsartan [Diovan 160 mg Tablet] 320 mg PO DAILY 06/24/17 Amlodipine Besylate 1 tab PO BID 08/05/17 Insulin Detemir [Levemir Flextouch] 100 units SQ DAILY 08/05/17 Polyvinyl Alcohol [Liquitears 1.4% Ophth Soln 15 ml] 1 drop BTH_EYE Q6 08/05/17 Cephalexin Monohydrate [Keflex 500 mg Capsule] 500 mg PO QID 10 Days capsule 04/24/18 Allergies/Adverse Reactions: celecoxib [From Celebrex] Allergy (Intermediate, Verified 05/07/17 02:54) gabapentin [From Neurontin] Allergy (Intermediate, Verified 05/07/17 02:54) lamotrigine [From Lamictal] Allergy (Intermediate, Verified 05/07/17 02:54) meloxicam [From Mobic] Allergy (Intermediate, Verified 05/07/17 02:54) thiothixene [From Navane] Allergy (Intermediate, Verified 05/07/17 02:54) amoxicillin trihydrate [From Augmentin] Allergy (Unknown, Verified 05/07/17 02:54) citalopram hydrobromide [From Celexa] Allergy (Unknown, Verified 05/07/17 02:54) codeine [Codeine] Allergy (Unknown, Verified 05/07/17 02:54) divalproex sodium [From Depakote] Allergy (Unknown, Verified 05/07/17 02:54) hydrocodone bitartrate [From Lorcet 10/650] Allergy (Unknown, Verified 05/07/17 02:54) methocarbamol [From Robaxin] Allergy (Unknown, Verified 05/07/17 02:54) nabumetone [From Relafen] Allergy (Unknown, Verified 05/07/17 02:54) oxycodone [Oxycodone] Allergy (Unknown, Verified 05/07/17 02:54) Sulfa (Sulfonamide Antibiotics) Allergy (Unknown, Verified 05/07/17 02:54) terazosin [Terazosin] Allergy (Unknown, Verified 05/07/17 02:54) tramadol HCl [From Ultram] Allergy (Unknown, Verified 05/07/17 02:54) Review of Systems ROS unobtainable: Due to mental status Constitutional: ABSENT: chills, fever(s), headache(s), weight gain, weight loss Physical Exam Vital Signs: Temp Pulse Resp BP Pulse Ox 97.7 F 19 165/57 H 100 11/23/18 10:15 11/23/18 11:20 11/23/18 11:20 11/23/18 11:20 General appearance: PRESENT: no acute distress, other - She smiles and answers questions in simple sentences one-word Patient has a warming blanket on Head exam: PRESENT: atraumatic, normocephalic Respiratory exam: PRESENT: clear to auscultation john. ABSENT: rales, rhonchi, wheezes Cardiovascular exam: PRESENT: RRR. ABSENT: diastolic murmur, rubs, systolic murmur Neurological exam: PRESENT: altered, other - Patient is disoriented x3, she is sleepy but arouses easily Psychiatric exam: PRESENT: appropriate affect, normal mood. ABSENT: homicidal ideation, suicidal ideation Results Laboratory Results: 11/23/18 08:43 11/23/18 08:43 11/23/18 11/23/18 11/23/18 08:43 08:43 09:50 WBC 11.7 H RBC 3.89 Hgb 11.8 L Hct 35.2 L MCV 90 MCH 30.3 MCHC 33.5 RDW 13.8 Plt Count 339 Seg Neutrophils % 67.8 Sodium 142.8 Potassium 3.8 Chloride 107 Carbon Dioxide 25 Anion Gap 11 BUN 34 H Creatinine 1.25 Est GFR ( Amer) 49 L Glucose 31 L* Calcium 10.0 Magnesium 2.1 Total Bilirubin 0.3 AST 21 Alkaline Phosphatase 72 Total Protein 7.0 Albumin 3.9 Urine Color YELLOW Urine Appearance CLOUDY Urine pH 5.0 Ur Specific [place] 1.013 Urine Protein 100 H Urine Glucose (UA) NEGATIVE Urine Ketones NEGATIVE Urine Blood NEGATIVE Urine Nitrite POSITIVE H Ur Leukocyte Esterase LARGE H Urine WBC (Auto) >182 Urine RBC (Auto) 4 Assessment and Plan - Diagnosis (1) Hypoglycemia Is this a current diagnosis for this admission?: Yes Plan: Patient's serum glucose on arrival was 31 actually and then quickly went up to 122, 84, 87. According to the jail not notes which have not been reconciled yet she is on Levemir insulin 100 units subcu daily NovoLog FlexPen which is aspart lighting scale (2) Mental status alteration Qualifiers: Altered mental status type: unspecified Qualified Code(s): R41.82 - Altered mental status, unspecified Is this a current diagnosis for this admission?: Yes Plan: Currently appears to be more demented than anything. This appears to be chronic. Patient has had previous ER visits with the same diagnosis of altered mental status and dementia (3) UTI (urinary tract infection) Qualifiers: Urinary tract infection type: acute cystitis Hematuria presence: without hematuria Qualified Code(s): N30.00 - Acute cystitis without hematuria Is this a current diagnosis for this admission?: Yes Plan: Patient's urine is positive for nitrates and leukocytes, I have ordered a culture today. Patient is allergic to multiple medications (5) Diabetes mellitus type 2 in obese Is this a current diagnosis for this admission?: Yes Plan: Patient will be put on a sliding scale till we can establish what her glucose levels are. I feel that the Levemir at 100 units subcu daily is probably too high for her - Time Time Spent with patient: 35 or more minutes
[2018-11-23] MEDS ORDERED: ACETAMINOPHEN 325 MG TABLET PO PRN (13:47)
[2018-11-23] MEDS ORDERED: ACETAMINOPHEN 650 MG SUPP.RECT PR PRN (13:47)
[2018-11-23] MEDS ORDERED: ONDANSETRON HCL INJ/PF 4 MG/2 ML SDV IV PRN (13:47)
[2018-11-23] MEDS ORDERED: NORMAL SALINE 1000 ML 1,000 ML IV PRN (13:47)
[2018-11-23] MEDS ORDERED: GLUCAGON,HUMAN RECOMB 1 MG INJ IM PRN ×2 (13:58→19:14)
[2018-11-23] MEDS ORDERED: DEXTROSE 50%-WATER 25 GM/50 ML DISP.SYRIN IV PRN ×4 (13:58→19:14)
[2018-11-23] MEDS ORDERED: DEXTROSE 40% GEL 15 GM TUBE PO PRN ×4 (13:58→19:14)
[2018-11-23] MEDS: LEVOFLOXACIN 500 MG/D5W RTU 500 MG/100 ML RTUPB IV SCH (14:27)
--- NOTE | 2018-11-23 14:41 | RADIOLOGY REPORT (SQ) ---
EXAM DESCRIPTION: CHEST SINGLE VIEW COMPLETED DATE/TIME: 11/23/2018 2:32 pm REASON FOR STUDY: altered mental status COMPARISON: 04/24/2018. EXAM PARAMETERS: NUMBER OF VIEWS: One view. TECHNIQUE: Single frontal radiographic view of the chest acquired. RADIATION DOSE: NA LIMITATIONS: None. FINDINGS: LUNGS AND PLEURA: No opacities, masses or pneumothorax. No pleural effusion. MEDIASTINUM AND HILAR STRUCTURES: There appears to be a hiatal hernia. HEART AND VASCULAR STRUCTURES: Heart size is borderline. No pulmonary edema. BONES: No acute findings. HARDWARE: None in the chest. OTHER: No other significant finding. IMPRESSION: Borderline cardiomegaly without pulmonary edema. Hiatal hernia. TECHNICAL DOCUMENTATION: JOB ID: [id number] [employer]- All Rights Reserved Reading location - IP/workstation name: [email or web address]
--- NOTE | 2018-11-23 14:46 | EKG REPORT ---
SEVERITY:- ABNORMAL ECG - SINUS RHYTHM FIRST DEGREE AV BLOCK : Confirmed by: Dinorah Reese MD 23-Nov-2018 14:45:28
[2018-11-23] MEDS: HEPARIN SOD (PORCINE) 5,000 UNIT/ML 1 ML VIAL SUBCUT SCH ×2 (15:11→21:25)
[2018-11-23] MEDS: DOCUSATE SODIUM 100 MG CAPSULE PO SCH (15:12)
[2018-11-23 16:19] LABS: INTERNATIONAL RATION (INR) 1.14; PROTHROMBIN TIME 14.7 SEC (11.4-15.4)
[2018-11-23] MEDS: INSULIN LISPRO 100 UNIT/ML 3 ML VIAL SUBCUT SCH ×2 (17:40→21:15)
[2018-11-23] MEDS: HYDRALAZINE HCL INJ/PF 20 MG/1 ML SDV IM SCH (21:19)
[2018-11-23] MEDS: FAMOTIDINE 20 MG TABLET PO SCH (21:26)
[2018-11-23] MEDS ORDERED: INSULIN LISPRO 100 UNIT/ML 3 ML VIAL SUBCUT SCH (22:00)
[2018-11-24 05:15] LABS: ABSOLUTE BASOPHILS # (AUTO) 0.1 10^3/uL (0.0-0.2); ABSOLUTE EOSINOPHILS # (AUTO) 0.1 10^3/uL (0.0-0.6); ABSOLUTE LYMPHOCYTES (AUTO) 1.6 10^3/uL (0.5-4.7); ABSOLUTE MONOCYTES (AUTO) 0.5 10^3/uL (0.1-1.4); ABSOLUTE NEUT (AUTO) 4.5 10^3/uL (1.7-8.2); BASOPHILS % (AUTO) 0.9 % (0-2); EOSINOPHILS % (AUTO) 1.8 % (0-6); HEMATOCRIT 30.7 % (36.0-47.0); HEMOGLOBIN 10.6 g/dL (12.0-15.5); MEAN CORPUSCULAR HEMOGLOBIN 30.8 pg (27.0-33.4); MEAN CORPUSCULAR HGB CONC 34.4 g/dL (32.0-36.0); MEAN CORPUSCULAR VOLUME 90 fl (80-97); MONOCYTES % (AUTO) 7.8 % (3-13); PLATELET COUNT 229 10^3/uL (150-450); RED BLOOD COUNT 3.43 10^6/uL (3.72-5.28); RED CELL DISTRIBUTION WIDTH 13.7 % (11.5-14.0); SEGMENTED NEUTROPHILS % (AUTO) 66.5 % (42-78); TOTAL CELLS COUNTED % (AUTO) 100 %; WHITE BLOOD COUNT 6.8 10^3/uL (4.0-10.5)
[2018-11-24 05:35] LABS: ANION GAP 9 (5-19); BLOOD UREA NITROGEN 31 mg/dL (7-20); CALCIUM 9.2 mg/dL (8.4-10.2); CARBON DIOXIDE 23 mmol/L (22-30); CHLORIDE 107 mmol/L (98-107); GLUCOSE 93 mg/dL (75-110); POTASSIUM 4.2 mmol/L (3.6-5.0)
[2018-11-24] MEDS: HYDRALAZINE HCL INJ/PF 20 MG/1 ML SDV IM SCH ×3 (06:20→22:06)
[2018-11-24] MEDS: HEPARIN SOD (PORCINE) 5,000 UNIT/ML 1 ML VIAL SUBCUT SCH ×3 (06:21→22:06)
[2018-11-24] MEDS: INSULIN GLARGINE,HUM.REC.ANLOG 1,000 UNIT/10 ML VIAL SUBCUT SCH (08:58)
[2018-11-24] MEDS: INSULIN LISPRO 100 UNIT/ML 3 ML VIAL SUBCUT SCH ×4 (08:58→21:50)
[2018-11-24] MEDS: FAMOTIDINE 20 MG TABLET PO SCH ×2 (09:33→22:06)
[2018-11-24] MEDS: LOSARTAN POTASSIUM 50 MG TABLET PO SCH (09:33)
[2018-11-24] MEDS: ISOSORBIDE MONONITRATE 30 MG TAB.ER.24H PO SCH (09:33)
[2018-11-24] MEDS: DOCUSATE SODIUM 100 MG CAPSULE PO SCH (09:33)
[2018-11-24] MEDS: LEVOFLOXACIN 500 MG/D5W RTU 500 MG/100 ML RTUPB IV SCH (09:33)
[2018-11-24] MEDS: ARIPIPRAZOLE 5 MG TABLET PO SCH (09:34)
--- NOTE | 2018-11-24 16:58 | PDOC PROGRESS REPORT ---
Subjective Progress Note for:: 11/24/18 Subjective:: No adverse events overnight. No new complaints. She arouses to verbal command and will occasionally attempt to answer questions but is not very talkative. Vital signs been stable. Reason For Visit: ALTERED MENTAL STATUS,DEMENTIA,UTI,HYPOGLYCEMIA Physical Exam Vital Signs: Temp Pulse Resp BP Pulse Ox 98.0 F 68 18 154/63 H 96 11/24/18 13:15 11/24/18 14:00 11/24/18 13:15 11/24/18 13:15 11/24/18 13:15 Intake & Output 11/23/18 11/24/18 11/25/18 06:59 06:59 06:59 Intake Total 600 Balance 600 Weight 66.2 kg General appearance: PRESENT: no acute distress, disheveled Respiratory exam: PRESENT: clear to auscultation john, symmetrical, unlabored. ABSENT: accessory muscle use, chest wall tenderness, crackles, prolonged expiratory phas, rhonchi, tachypnea, wheezes Cardiovascular exam: PRESENT: RRR, +S1, +S2 Pulses: PRESENT: normal carotid pulses Vascular exam: PRESENT: normal capillary refill GI/Abdominal exam: PRESENT: normal bowel sounds, soft. ABSENT: distended, guarding, rebound, tenderness Extremities exam: ABSENT: clubbing, pedal edema Musculoskeletal exam: PRESENT: normal inspection. ABSENT: deformity Neurological exam: PRESENT: altered, awake - Drowsy but arousable, oriented to person - Responds to her name being called Psychiatric exam: PRESENT: flat affect Skin exam: PRESENT: dry, warm Results Laboratory Results: 11/24/18 04:53 11/24/18 04:53 11/24/18 11/24/18 04:53 04:53 WBC 6.8 RBC 3.43 L Hgb 10.6 L Hct 30.7 L MCV 90 MCH 30.8 MCHC 34.4 RDW 13.7 Plt Count 229 Seg Neutrophils % 66.5 Sodium 138.7 Potassium 4.2 Chloride 107 Carbon Dioxide 23 Anion Gap 9 BUN 31 H Creatinine 1.21 Est GFR ( Amer) 51 L Glucose 93 Calcium 9.2 Magnesium 1.9 Impressions: Chest X-Ray 11/23/18 13:50 IMPRESSION: Borderline cardiomegaly without pulmonary edema. Hiatal hernia. Assessment and Plan - Diagnosis (1) Hypoglycemia Is this a current diagnosis for this admission?: Yes Plan: Resolved. Glucoses in the normal range and being checked at regular intervals. (2) Mental status alteration Qualifiers: Altered mental status type: unspecified Qualified Code(s): R41.82 - Altered mental status, unspecified Is this a current diagnosis for this admission?: Yes Plan: I am not sure what her normal mental status is like. She does carry a history of dementia. We will continue to try to treat what conditions we know and see how she responds. (3) UTI (urinary tract infection) Qualifiers: Urinary tract infection type: acute cystitis Hematuria presence: without hematuria Qualified Code(s): N30.00 - Acute cystitis without hematuria Is this a current diagnosis for this admission?: Yes Plan: She is on Rocephin. A gram-negative bobo is growing out of the urine. (4) CKD (chronic kidney disease) stage 2, GFR 60-89 ml/min Is this a current diagnosis for this admission?: Yes Plan: Creatinine stable around 1.2 (5) Dementia Qualifiers: Dementia type: unspecified type Dementia behavioral disturbance: without behavioral disturbance Qualified Code(s): F03.90 - Unspecified dementia without behavioral disturbance Is this a current diagnosis for this admission?: Yes Plan: Again, not sure what her normal mental status is like, will treat her active conditions and see how she responds. - Time Time Spent with patient: 15-24 minutes
[2018-11-25] MEDS: HEPARIN SOD (PORCINE) 5,000 UNIT/ML 1 ML VIAL SUBCUT SCH ×3 (06:29→21:28)
[2018-11-25] MEDS: HYDRALAZINE HCL INJ/PF 20 MG/1 ML SDV IM SCH ×3 (06:30→21:29)
[2018-11-25] MEDS: INSULIN GLARGINE,HUM.REC.ANLOG 1,000 UNIT/10 ML VIAL SUBCUT SCH (08:20)
[2018-11-25] MEDS: INSULIN LISPRO 100 UNIT/ML 3 ML VIAL SUBCUT SCH ×4 (08:20→21:27)
[2018-11-25] MEDS: LOSARTAN POTASSIUM 50 MG TABLET PO SCH (09:21)
[2018-11-25] MEDS: FAMOTIDINE 20 MG TABLET PO SCH ×2 (09:21→21:28)
[2018-11-25] MEDS: ISOSORBIDE MONONITRATE 30 MG TAB.ER.24H PO SCH (09:21)
[2018-11-25] MEDS: LEVOFLOXACIN 500 MG/D5W RTU 500 MG/100 ML RTUPB IV SCH (09:21)
[2018-11-25] MEDS: ARIPIPRAZOLE 5 MG TABLET PO SCH (09:21)
[2018-11-25] MEDS: DOCUSATE SODIUM 100 MG CAPSULE PO SCH (09:22)
--- NOTE | 2018-11-25 16:02 | PDOC PROGRESS REPORT ---
Subjective Progress Note for:: 11/25/18 Subjective:: No adverse events overnight. She was awake this morning and she ate breakfast. 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 Because she was so hard of hearing, I had to yell to ask her who her power of workers compensation attorney was and she said she did not know. I then asked her who her ferry captain was and she said she did not know. Reason For Visit: ALTERED MENTAL STATUS,DEMENTIA,UTI,HYPOGLYCEMIA Physical Exam Vital Signs: Temp Pulse Resp BP Pulse Ox 98.4 F 68 16 138/99 H 100 11/25/18 11:31 11/25/18 14:00 11/25/18 11:31 11/25/18 11:31 11/25/18 11:31 Intake & Output 11/24/18 11/25/18 11/26/18 06:59 06:59 06:59 Intake Total 600 150 Balance 600 150 Weight 66.2 kg 71.9 kg General appearance: PRESENT: no acute distress, disheveled, hard of hearing Respiratory exam: PRESENT: clear to auscultation john, symmetrical, unlabored. ABSENT: accessory muscle use, chest wall tenderness, crackles, prolonged expiratory phas, rhonchi, tachypnea, wheezes Cardiovascular exam: PRESENT: RRR, +S1, +S2 Pulses: PRESENT: normal carotid pulses Vascular exam: PRESENT: normal capillary refill GI/Abdominal exam: PRESENT: normal bowel sounds, soft. ABSENT: distended, guarding, rebound, tenderness Extremities exam: ABSENT: clubbing, pedal edema Musculoskeletal exam: PRESENT: normal inspection. ABSENT: deformity Neurological exam: PRESENT: Awake, alert, oriented to person Psychiatric exam: PRESENT: Agitated Skin exam: PRESENT: dry, warm Results Laboratory Results: 11/24/18 04:53 11/24/18 04:53 11/23/18 09:50 Catheterized Urine Urine Culture - Final Escherichia Coli Impressions: Chest X-Ray 11/23/18 13:50 IMPRESSION: Borderline cardiomegaly without pulmonary edema. Hiatal hernia. Assessment and Plan - Diagnosis (1) Hypoglycemia Is this a current diagnosis for this admission?: Yes Plan: Resolved. Glucoses in the normal range and being checked at regular intervals. (2) Mental status alteration Qualifiers: Altered mental status type: unspecified Qualified Code(s): R41.82 - Altered mental status, unspecified Is this a current diagnosis for this admission?: Yes Plan: Possibly resolved. Suspect a metabolic encephalopathy from her urinary tract infection. I do not know where her baseline is, but I suspect she is fairly close. We will try to make contact with family to ascertain her true baseline. (3) UTI (urinary tract infection) Qualifiers: Urinary tract infection type: acute cystitis Hematuria presence: without hematuria Qualified Code(s): N30.00 - Acute cystitis without hematuria Is this a current diagnosis for this admission?: Yes Plan: Pansensitive E. coli, switching to p.o. antibiotics. I considered Keflex but she has amoxicillin allergy with an unknown reaction and I cannot find where she has had a cephalosporin in the past. If I can make contact with family will attempt to find out if she is ever taken cephalosporins without incident or what her amoxicillin allergy is. (4) CKD (chronic kidney disease) stage 2, GFR 60-89 ml/min Is this a current diagnosis for this admission?: Yes Plan: Creatinine stable around 1.2 (5) Dementia Qualifiers: Dementia type: unspecified type Dementia behavioral disturbance: without behavioral disturbance Qualified Code(s): F03.90 - Unspecified dementia without behavioral disturbance Is this a current diagnosis for this admission?: Yes Plan: Again, I suspect this is its baseline. - Time Time Spent with patient: 15-24 minutes
[2018-11-26] MEDS: HEPARIN SOD (PORCINE) 5,000 UNIT/ML 1 ML VIAL SUBCUT SCH ×2 (05:18→14:38)
[2018-11-26] MEDS: HYDRALAZINE HCL INJ/PF 20 MG/1 ML SDV IM SCH (05:18)
[2018-11-26] MEDS: INSULIN LISPRO 100 UNIT/ML 3 ML VIAL SUBCUT SCH ×3 (09:04→16:35)
--- NOTE | 2018-11-26 09:17 | PDOC DISCHARGE SUMMARY ---
General - Admit/Disc Date/PCP Admission Date/Primary Care Provider: 11/23/18 15:02 Trav CAMPBELL MD Discharge Date: 11/26/18 - Discharge Diagnosis (1) Hypoglycemia Is this a current diagnosis for this admission?: Yes Summary: Resolved. She is eating and drinking normally and on insulin coverage and her blood sugars are acceptable. (2) Mental status alteration Is this a current diagnosis for this admission?: Yes Summary: Metabolic encephalopathy due to urinary tract infection. Now resolved. Mental status back to baseline. (3) UTI (urinary tract infection) Is this a current diagnosis for this admission?: Yes Summary: She grew out a pansensitive E. coli. We decided to keep her on p.o. Levaquin because she has a reported allergy to amoxicillin and we do not know if she is been able to take a cephalosporin in the past and cannot reliably determine from her or from other sources what the allergy is, or whether or not she has had a cephalosporin in the past without incident. (4) CKD (chronic kidney disease) stage 2, GFR 60-89 ml/min Is this a current diagnosis for this admission?: Yes Summary: Creatinine is stable in his usual range (5) Dementia Is this a current diagnosis for this admission?: Yes Summary: Mental status believed to be at baseline. - Additional Information Resuscitation Status: Full Code Discharge Diet: Diabetic Discharge Activity: Supervised Activity Prescriptions: Levofloxacin [Levaquin 500 mg Tablet] 500 mg PO DAILY #5 tablet Home Medications: Acetaminophen [Tylenol] 650 mg PO Q4HP PRN 11/23/18 Aripiprazole [Abilify 10 mg Tablet] 10 mg PO QAM 11/23/18 Aspirin [Aspirin 81 mg Chewable Tablet] 81 mg PO DAILY 11/23/18 Bismuth Subsalicylate [Pepto-Bismol] 30 ml PO Q4HP PRN 11/23/18 Calcium Carbonate/Vitamin D3 [Calcium 250-D Tablet] 1 each PO DAILY 11/23/18 Dextran 70/Hypromellose [Artificial Tears Eye Drops] 1 drop OU QID 11/23/18 Donepezil HCl 10 mg PO QHS 11/23/18 Fenofibrate Nanocrystallized [Tricor 48 mg Tablet] 48 mg PO DAILY 11/23/18 Ferrous Sulfate [Feosol 325 mg Tablet] 325 mg PO Q12 11/23/18 Guaifenesin [Robitussin Syrup 200 mg/10 ml Ud Cup] 10 ml PO QIDP PRN 11/23/18 Hydralazine HCl [Apresoline 50 mg Tablet] 50 mg PO Q8 11/23/18 Hydrocodone/Acetaminophen [[place] 5-325 mg Tablet] 1 tab PO HSP PRN 11/23/18 Insulin Glargine/Lixisenatide [[place] 100 Unit-33 Mcg/ml Pen] 33 unit SQ QAM 11/23/18 Isosorbide Mononitrate [Imdur 30 mg Tablet.er] 30 mg PO DAILY 11/23/18 Lansoprazole [Prevacid 30 mg Odt Tablet] 30 mg PO Q6AM 11/23/18 Losartan Potassium [Cozaar 100 mg Tablet] 100 mg PO DAILY 11/23/18 Paroxetine HCl [Paxil] 40 mg PO DAILY 11/23/18 Propylene Glycol [Systane Balance] 1 drop OU QID 11/23/18 Rosuvastatin Calcium [Crestor 20 mg Tablet] 20 mg PO QHS 11/23/18 Levofloxacin [Levaquin 500 mg Tablet] 500 mg PO DAILY #5 tablet 11/26/18 History of Present Illness History of Present Illness: LUAN MYRICK is a 87 year old female who comes from [facility] home in [facility] with hypoglycemia, altered mental status, and possible UTI. Patient has a history of dementia as well evidently at the shelter patient was found to have a blood sugar of 35. When she was picked up by EMS they gave her some oral glucose and by the time she arrived in the ER her sugar was 120. Temperature however was 96.5 rectal patient's urine has a large amount of leukocytes positive nitrates and positive protein. Patient will be admitted to the hospital for hypoglycemia, possible UTI, altered mental status, dementia Hospital Course Hospital Course: She was encephalopathic and sleeping most of her first day here. She was put empirically on some IV fluids and some antibiotics. Her blood sugar responded very well. When she woke up and was able to eat she has not had any trouble with her blood sugar since. She turned out to have a pansensitive E. coli in her urine. We have decided to continue Levaquin for the reasons noted above. She is sitting up in the bed now and conversing very well and eating all of her food. Her labs and examination were reassuring and she is being transferred back to [facility] in good condition. Physical Exam Vital Signs: Temp Pulse Resp BP Pulse Ox 98.1 F 67 20 143/61 H 100 11/26/18 03:26 11/26/18 07:00 11/26/18 03:26 11/26/18 03:26 11/26/18 03:26 Intake & Output 11/25/18 11/26/18 11/27/18 06:59 06:59 06:59 Intake Total 150 390 Balance 150 390 Weight 71.9 kg 70.7 kg General appearance: PRESENT: no acute distress, disheveled, hard of hearing Respiratory exam: PRESENT: clear to auscultation john, symmetrical, unlabored. ABSENT: accessory muscle use, chest wall tenderness, crackles, prolonged expiratory phas, rhonchi, tachypnea, wheezes Cardiovascular exam: PRESENT: RRR, +S1, +S2 Pulses: PRESENT: normal carotid pulses Vascular exam: PRESENT: normal capillary refill GI/Abdominal exam: PRESENT: normal bowel sounds, soft. ABSENT: distended, guarding, rebound, tenderness Extremities exam: ABSENT: clubbing, pedal edema Musculoskeletal exam: PRESENT: normal inspection. ABSENT: deformity Neurological exam: PRESENT: Awake, alert, oriented to person, oriented to place Skin exam: PRESENT: dry, warm Results Laboratory Results: 11/24/18 04:53 11/24/18 04:53 11/23/18 09:50 Catheterized Urine Urine Culture - Final Escherichia Coli Impressions: Chest X-Ray 11/23/18 13:50 IMPRESSION: Borderline cardiomegaly without pulmonary edema. Hiatal hernia. Qualifiers - * PATIENT BEING DISCHARGED WITH ANY OF THE FOLLOWING DIAGNOSIS: No Acute Heart Failure - Is this a Heart Failure Patient?: No Plan Time Spent: Greater than 30 Minutes
[2018-11-26] MEDS: INSULIN GLARGINE,HUM.REC.ANLOG 1,000 UNIT/10 ML VIAL SUBCUT SCH (09:53)
[2018-11-26] MEDS: ISOSORBIDE MONONITRATE 30 MG TAB.ER.24H PO SCH (09:54)
[2018-11-26] MEDS: DOCUSATE SODIUM 100 MG CAPSULE PO SCH (09:55)
[2018-11-26] MEDS: LOSARTAN POTASSIUM 50 MG TABLET PO SCH (09:55)
[2018-11-26] MEDS: FAMOTIDINE 20 MG TABLET PO SCH (09:55)
[2018-11-26] MEDS: ARIPIPRAZOLE 5 MG TABLET PO SCH (09:56)
[2018-11-26] MEDS ORDERED: LEVOFLOXACIN 500 MG TABLET PO SCH (10:00)
[2018-11-26] MEDS ORDERED: HYDRALAZINE HCL 50 MG TABLET PO SCH ×2 (15:00→22:00)
[2018-11-26 16:14] VITALS: BP 156/63
== END 2018-11-26 17:27 | DRG 637 ==
LOC: ER 09:23 → EH 15:02 → 3N 17:18
PROVIDERS: ADMIT Hospitalist; ATTEND Hospitalist
DX: E11.649 Type 2 diabetes mellitus with hypoglycemia without coma (principal); G93.41 Metabolic encephalopathy; N39.0 Urinary tract infection, site not specified; I13.0 Hypertensive heart and chronic kidney disease with heart failure and stage 1 through stage 4 chronic kidney disease, or unspecified chronic kidney disease; B96.20 Unspecified Escherichia coli [E. coli] as the cause of diseases classified elsewhere; N18.2 Chronic kidney disease, stage 2 (mild); G30.9 Alzheimer's disease, unspecified; F02.80 Dementia in other diseases classified elsewhere, unspecified severity, without behavioral disturbance, psychotic disturbance, mood disturbance, and anxiety; E11.22 Type 2 diabetes mellitus with diabetic chronic kidney disease; I25.10 Atherosclerotic heart disease of native coronary artery without angina pectoris; M19.90 Unspecified osteoarthritis, unspecified site; F31.9 Bipolar disorder, unspecified; Z79.82 Long term (current) use of aspirin; Z79.4 Long term (current) use of insulin; Z79.899 Other long term (current) drug therapy; Z90.49 Acquired absence of other specified parts of digestive tract; Z88.1 Allergy status to other antibiotic agents; Z88.0 Allergy status to penicillin; Z88.5 Allergy status to narcotic agent; Z88.2 Allergy status to sulfonamides
CPT/HCPCS: 36415; 71045; 80048; 80053; 80307; 81001; 82140; 82962; 83036; 83735; 85025; 85610; 85730; 87040; 87086; 87088; 87186; 93005; 93010; 96361; 96365; 96375; 99285; J0360; J1644; J1815; J1956

== ENCOUNTER → 2019-01-13 | Outpatient (CLI) | payer MEDICARE, OTHER ==
[2019-01-13 09:53] LABS: HEMATOCRIT 40.4 % (36.0-47.0); HEMOGLOBIN 13.8 g/dL (12.0-15.5); MEAN CORPUSCULAR HEMOGLOBIN 30.6 pg (27.0-33.4); MEAN CORPUSCULAR HGB CONC 34.2 g/dL (32.0-36.0); MEAN CORPUSCULAR VOLUME 89 fl (80-97); PLATELET COUNT 259 10^3/uL (150-450); RED BLOOD COUNT 4.52 10^6/uL (3.72-5.28); RED CELL DISTRIBUTION WIDTH 13.3 % (11.5-14.0); WHITE BLOOD COUNT 9.3 10^3/uL (4.0-10.5)
[2019-01-13 10:02] LABS: HEMATOCRIT 40.4 % (36.0-47.0); HEMOGLOBIN 13.8 g/dL (12.0-15.5); MEAN CORPUSCULAR HEMOGLOBIN 30.6 pg (27.0-33.4); MEAN CORPUSCULAR HGB CONC 34.2 g/dL (32.0-36.0); MEAN CORPUSCULAR VOLUME 89 fl (80-97); PLATELET COUNT 259 10^3/uL (150-450); RED BLOOD COUNT 4.52 10^6/uL (3.72-5.28); RED CELL DISTRIBUTION WIDTH 13.3 % (11.5-14.0); WHITE BLOOD COUNT 9.3 10^3/uL (4.0-10.5)
[2019-01-13 10:23] LABS: ANION GAP 12 (5-19); BLOOD UREA NITROGEN 27 mg/dL (7-20); CALCIUM 10.2 mg/dL (8.4-10.2); CARBON DIOXIDE 23 mmol/L (22-30); CHLORIDE 106 mmol/L (98-107); GLUCOSE 121 mg/dL (75-110); POTASSIUM 4.7 mmol/L (3.6-5.0)
== END ==
LOC: OD 09:08
DX: N39.0 Urinary tract infection, site not specified (principal); E11.22 Type 2 diabetes mellitus with diabetic chronic kidney disease; N18.3 Chronic kidney disease, stage 3 (moderate); D64.9 Anemia, unspecified
CPT/HCPCS: 36415; 80048; 85027

== ENCOUNTER → 2019-09-22 | Outpatient (CLI) | payer MEDICARE, OTHER | LOC: OD 10:07 | PROVIDERS: ATTEND Family Medicine | DX: I12.9 Hypertensive chronic kidney disease with stage 1 through stage 4 chronic kidney disease, or unspecified chronic kidney disease (principal); N18.3 Chronic kidney disease, stage 3 (moderate); Z53.8 Procedure and treatment not carried out for other reasons ==

== ENCOUNTER 2020-02-28 17:00 | Emergency (ER) | payer MEDICARE ==
[2020-02-28 18:14] LABS: APPEARANCE,URINE CLOUDY; BILIRUBIN,URINE NEGATIVE (NEGATIVE); COLOR,URINE YELLOW; GLUCOSE, URINE NEGATIVE (NEGATIVE); KETONES,URINE NEGATIVE (NEGATIVE); LEUKOCYTE ESTERASE,URINE LARGE (NEGATIVE); NITRITE,URINE POSITIVE (NEGATIVE); PROTEIN,URINE 100 mg/dL (NEGATIVE); URINE SPECIFIC GRAVITY 1.014; UROBILINOGEN,URINE NEGATIVE mg/dL (<2.0)
--- NOTE | 2020-02-28 18:44 | ER Document Report ---
ED General - General Chief Complaint: Urinary Problem Stated Complaint: UTI Time Seen by Provider: 02/28/20 18:43 Primary Care Provider: DOUG MUELLER MD [Primary Care Provider] - Follow up as needed TRAVEL OUTSIDE OF THE [place] IN LAST 30 DAYS: No - HPI Notes: 89-year-old female presents from the senior care for assessment of UTI. Per senior care, patient was seen by her physician today and was sent to the ED for evaluation of UTI as there is concern for some altered mental status however patient believed to be at her usual baseline. Patient states "I'm doing ok" and currently denies complaints. When asked if she knew that she had a UTI, patient states "I was just told that". Patient appears to be limited historian. - Related Data Allergies/Adverse Reactions: celecoxib [From Celebrex] Allergy (Intermediate, Verified 05/07/17 02:54) gabapentin [From Neurontin] Allergy (Intermediate, Verified 05/07/17 02:54) lamotrigine [From Lamictal] Allergy (Intermediate, Verified 05/07/17 02:54) meloxicam [From Mobic] Allergy (Intermediate, Verified 05/07/17 02:54) thiothixene [From Navane] Allergy (Intermediate, Verified 05/07/17 02:54) amoxicillin trihydrate [From Augmentin] Allergy (Unknown, Verified 05/07/17 02:54) citalopram hydrobromide [From Celexa] Allergy (Unknown, Verified 05/07/17 02:54) codeine [Codeine] Allergy (Unknown, Verified 05/07/17 02:54) divalproex sodium [From Depakote] Allergy (Unknown, Verified 05/07/17 02:54) hydrocodone bitartrate [From Lorcet 10/650] Allergy (Unknown, Verified 05/07/17 02:54) methocarbamol [From Robaxin] Allergy (Unknown, Verified 05/07/17 02:54) nabumetone [From Relafen] Allergy (Unknown, Verified 05/07/17 02:54) oxycodone [Oxycodone] Allergy (Unknown, Verified 05/07/17 02:54) Sulfa (Sulfonamide Antibiotics) Allergy (Unknown, Verified 05/07/17 02:54) terazosin [Terazosin] Allergy (Unknown, Verified 02/21/18 02:54) tramadol HCl [From Ultram] Allergy (Unknown, Verified 05/07/17 02:54) Past Medical History - General Information source: Patient, Outside Facility Records - Social History Smoking Status: Never Smoker Family History: Reviewed & Not Pertinent, Other - Past Medical History Cardiac Medical History: Reports: Hx Congestive Heart Failure, Hx Coronary Artery Disease, Hx Heart Attack, Hx Hypercholesterolemia, Hx Hypertension Denies: Hx Heart Murmur Pulmonary Medical History: Reports: Hx Pneumonia Denies: Hx Respiratory Failure, Hx Sleep Apnea, Hx Tuberculosis Neurological Medical History: Reports: Hx Cerebrovascular Accident - Residual symptoms include left sided arm and leg numbness and weakness, Hx Seizures - "long time ago" Endocrine Medical History: Reports: Hx Diabetes Mellitus Type 2 Renal/ Medical History: Denies: Hx Peritoneal Dialysis Malignancy Medical History: GI Medical History: Denies: Hx Hiatal Hernia, Hx Pancreatitis, Hx Ulcer Musculoskeletal Medical History: Reports Hx Arthritis - osteo, Denies Hx Systemic Lupus Erythematosus Psychiatric Medical History: Reports: Hx Anxiety, Hx Bipolar Disorder, Hx Dementia, Hx Depression, Hx Schizophrenia Traumatic Medical History: Infectious Medical History: Past Surgical History: Reports: Hx Appendectomy, Hx Cardiac Catheterization, Hx Cholecystectomy, Hx Hysterectomy, Hx Orthopedic Surgery - back surgery x 7, Hx Tonsillectomy - Immunizations Hx Diphtheria, Pertussis, Tetanus Vaccination: Yes Hx Pneumococcal Vaccination: 03/17/09 Review of Systems - Review of Systems Constitutional: denies: Fever EENT: No symptoms reported Cardiovascular: denies: Chest pain Respiratory: denies: Short of breath Gastrointestinal: denies: Abdominal pain, Diarrhea, Vomiting Genitourinary: denies: Dysuria Female Genitourinary: No symptoms reported Musculoskeletal: denies: Back pain Skin: No symptoms reported Hematologic/Lymphatic: No symptoms reported Neurological/Psychological: No symptoms reported Physical Exam - Vital signs Vitals: Temp Pulse Resp BP Pulse Ox 98.0 F 64 18 195/75 H 100 02/28/20 17:25 02/28/20 17:25 02/28/20 17:25 02/28/20 17:25 02/28/20 17:25 - General General appearance: Appears well, Alert In distress: None - HEENT Head: Normocephalic, Atraumatic Extraocular movements intact: Yes Pupils: PERRL - Respiratory Breath sounds: Normal - Cardiovascular Rhythm: Regular Heart sounds: Normal auscultation - Abdominal Distension: No distension Tenderness: Nontender - Extremities General lower extremity: No: Edema - Neurological Neuro grossly intact: Yes Orientation: Disoriented to events - Patient is oriented to self, able to easily state her name and birthdate. She is able to states that she lives in [place] and previously lived in [place]. She states that she used to know who the president was but she has since forgotten. [place] Coma Scale Eye Opening: Spontaneous [place] Coma Scale Verbal: Oriented [place] Coma Scale Motor: Obeys Commands [place] Coma Scale Total: 15 - Psychological Associated symptoms: Other - Cooperative - Skin Skin Temperature: Warm Course - Re-evaluation Re-evalutation: 89-year-old female presents from senior care for evaluation of UTI per request of physician. Patient is afebrile, not tachycardic. She is hypertensive but has a history of this, asymptomatic. Currently denies complaints. Nontoxic- appearing on exam. Abdomen is soft without any focal areas of tenderness. She is alert and oriented x2 which apparently is her baseline. A urine sample has been obtained and it is grossly positive for UTI, have ordered 1 g Rocephin to initiate treatment. Reviewed previous urine cultures which show Proteus, Enterococcus and E. coli as the 3 most recent, all have been susceptible to ceftriaxone. 02/28/20 19:57 Rocephin has finished. Into check on patient, she reports she is still doing well and is looking forward to going home. I discussed with her course of Keflex. Return precautions given, stable at time of discharge. - Vital Signs Vital signs: Temp Pulse Resp BP Pulse Ox 98.0 F 64 18 195/75 H 100 02/28/20 17:25 02/28/20 17:25 02/28/20 17:25 02/28/20 17:25 02/28/20 17:25 - Laboratory Results Laboratory Results Interpreted: 02/28/20 17:35 Urine Protein 100 H Urine Blood SMALL H Urine Nitrite POSITIVE H Ur Leukocyte Esterase LARGE H Critical Laboratory Results Reviewed: No Critical Results - Radiology Results Critical Radiology Results Reviewed: No Critical Results Discharge - Discharge Clinical Impression: Bacterial UTI Disposition: HOME-SNF (ED ONLY) Instructions: Urinary Tract Infection ([facility]) Additional Instructions: As discussed, your urine was suggestive of a urinary tract infection. You received a dose of Rocephin here. You have been prescribed Keflex, take this twice a day for 5 days. Please have a repeat urine sample sent at some point this week to assure that infection is improving. You will be called based on the culture results if antibiotics need to be changed. Return to the emergency department for any concerning worsening symptoms. Prescriptions: Cephalexin Monohydrate [Keflex 500 mg Capsule] 500 mg PO BID 5 Days #10 capsule Referrals: DOUG MUELLER MD [Primary Care Provider] - Follow up as needed
[2020-02-28] MEDS ORDERED: CEFTRIAXONE 1 GM/D5W RTU 1 GM/50 ML RTUPB IV ONE (18:56)
[2020-02-28] MEDS ORDERED: HYDRALAZINE HCL 50 MG TABLET PO ONE (20:35)
[2020-02-28 22:03] VITALS: BP 200/81
== END 2020-02-28 21:40 ==
LOC: ER 17:00
DX: N39.0 Urinary tract infection, site not specified (principal); B96.89 Other specified bacterial agents as the cause of diseases classified elsewhere; I11.0 Hypertensive heart disease with heart failure; I50.9 Heart failure, unspecified; I25.10 Atherosclerotic heart disease of native coronary artery without angina pectoris; Z88.2 Allergy status to sulfonamides; Z88.6 Allergy status to analgesic agent; I25.2 Old myocardial infarction
CPT/HCPCS: 99284; 96365; 87086; 87088; 81001; A9270; J0696; 87186